=== PATIENT | male | born 1940 | race Caucasian/White ===

== ENCOUNTER → 2016-09-21 | Outpatient (CLI) | payer OTHER, BC ==
[~2016-09-21] MED LIST: ASPI1TAB83 PO; B-COCAP2 PO; CHOL1000 PO; CHROMIUM PICOLINATE PO; CMD5 PO; CMD75 PO; FINA5TAB PO; GLCSC500400; LECITHIN; MULT-506 PO; SIMV20TA2 PO; TAMS0.4C59 PO; VERA120T2 PO
[2016-09-21 09:36] LABS: HEMATOCRIT 46.2 % (42-52); MEAN CELL VOLUME 99.4 fL (80-100); MEAN CORPUSCULAR HGB CONC 34.2 g/dl (32-36); MEAN PLATELET VOLUME 10.3 fL (7.4-10.4); PLATELET COUNT 196 K/uL (130-400); RED BLOOD COUNT 4.65 M/uL (4.7-6.1); WHITE BLOOD COUNT 5.82 K/uL (4.8-10.8)
[2016-09-21 10:03] LABS: ESTIMATED AVERAGE GLUCOSE 117 mg/dl; HA1C FLAG Normal (Normal)
[2016-09-21 10:08] LABS: ALT/SGPT 21 U/L (12-78); BLOOD UREA NITROGEN 23 mg/dl (7-18); BUN/CREATININE RATIO 19.2 (10-20); CALCIUM 9.2 mg/dl (8.5-10.1); CARBON DIOXIDE 30 mmol/L (21-32); CHLORIDE 105 mmol/L (98-107); CHOLESTEROL 241 mg/dl (0-200); GLUCOSE 105 mg/dl (70-99); POTASSIUM 4.3 mmol/L (3.5-5.1); SODIUM 143 mmol/L (136-145); TRIGLYCERIDES 147 mg/dl (0-150); VERY LOW DENSITY LIPOPROT CALC 29 mg/dl
[2016-09-21 10:19] LABS: ALKALINE PHOSPHATASE 46 U/L (45-117); AST/SGOT 19 U/L (15-37); CHOLESTEROL/HDL RATIO 5.1; HDL CHOLESTEROL 47 mg/dl; LDL CHOLESTEROL CALCULATED 165 mg/dl
== END | disposition home or self-care (01) ==
LOC: C.LAB 08:31
PROVIDERS: ATTEND Family Medicine
DX: F33.0 Major depressive disorder, recurrent, mild (principal); R73.01 Impaired fasting glucose; E78.2 Mixed hyperlipidemia; I48.2 Chronic atrial fibrillation

== ENCOUNTER → 2017-02-28 | Outpatient (CLI) | payer OTHER, BC ==
[2017-02-28 10:52] LABS: ALKALINE PHOSPHATASE 53 U/L (45-117); ALT/SGPT 21 U/L (12-78); AST/SGOT 17 U/L (15-37); BLOOD UREA NITROGEN 17 mg/dl (7-18); BUN/CREATININE RATIO 13.8 (10-20); CARBON DIOXIDE 28 mmol/L (21-32); CHLORIDE 104 mmol/L (98-107); CHOLESTEROL 213 mg/dl (0-200); GLUCOSE 102 mg/dl (70-99); POTASSIUM 4.5 mmol/L (3.5-5.1); SODIUM 140 mmol/L (136-145); TRIGLYCERIDES 233 mg/dl (0-150); VERY LOW DENSITY LIPOPROT CALC 47 mg/dl
[2017-02-28 10:54] LABS: ALB/GLOB RATIO 0.9 (0.9-2); CHOLESTEROL/HDL RATIO 5.6; HDL CHOLESTEROL 38 mg/dl; LDL CHOLESTEROL CALCULATED 128 mg/dl
[2017-02-28 10:58] LABS: ESTIMATED AVERAGE GLUCOSE 123 mg/dl; HA1C FLAG Normal (Normal)
== END | disposition home or self-care (01) ==
LOC: C.LAB 09:14
PROVIDERS: ATTEND Family Medicine
DX: E11.9 Type 2 diabetes mellitus without complications (principal); E78.2 Mixed hyperlipidemia

== ENCOUNTER → 2017-05-27 | Outpatient (CLI) | payer OTHER, BC ==
[2017-05-27 09:56] LABS: ALT/SGPT 18 U/L (12-78); BLOOD UREA NITROGEN 19 mg/dl (7-18); BUN/CREATININE RATIO 14.8 (10-20); CALCIUM 9.3 mg/dl (8.5-10.1); CARBON DIOXIDE 29 mmol/L (21-32); CHLORIDE 105 mmol/L (98-107); CHOLESTEROL 244 mg/dl (0-200); GLUCOSE 99 mg/dl (70-99); POTASSIUM 4.5 mmol/L (3.5-5.1); SODIUM 139 mmol/L (136-145); TRIGLYCERIDES 183 mg/dl (0-150); VERY LOW DENSITY LIPOPROT CALC 37 mg/dl
[2017-05-27 09:58] LABS: ESTIMATED AVERAGE GLUCOSE 123 mg/dl; HA1C FLAG Normal (Normal)
[2017-05-27 10:00] LABS: ALB/GLOB RATIO 0.9 (0.9-2); ALKALINE PHOSPHATASE 51 U/L (45-117); AST/SGOT 19 U/L (15-37); CHOLESTEROL/HDL RATIO 5.7; HDL CHOLESTEROL 43 mg/dl; LDL CHOLESTEROL CALCULATED 164 mg/dl
== END | disposition home or self-care (01) ==
LOC: C.LAB 08:04
PROVIDERS: ATTEND Family Medicine
DX: E11.9 Type 2 diabetes mellitus without complications (principal); E78.2 Mixed hyperlipidemia

== ENCOUNTER → 2017-09-08 | Outpatient (CLI) | payer OTHER, BC ==
[2017-09-08 10:06] LABS: BLOOD UREA NITROGEN 19 mg/dl (7-18); BUN/CREATININE RATIO 15.3 (10-20); CALCIUM 9.2 mg/dl (8.5-10.1); CARBON DIOXIDE 29 mmol/L (21-32); CHLORIDE 103 mmol/L (98-107); CREATININE 1.22 mg/dl (0.60-1.40); GLUCOSE 111 mg/dl (70-99); POTASSIUM 4.5 mmol/L (3.5-5.1); SODIUM 135 mmol/L (136-145)
[2017-09-08 10:07] LABS: ALT/SGPT 24 U/L (12-78); AST/SGOT 20 U/L (15-37)
[2017-09-08 10:09] LABS: ALB/GLOB RATIO 0.8 (0.9-2); ALKALINE PHOSPHATASE 54 U/L (45-117); CHOLESTEROL 212 mg/dl (0-200); CHOLESTEROL/HDL RATIO 3.9; HDL CHOLESTEROL 54 mg/dl; LDL CHOLESTEROL CALCULATED 135 mg/dl; TRIGLYCERIDES 113 mg/dl (0-150); VERY LOW DENSITY LIPOPROT CALC 23 mg/dl
[2017-09-08 10:12] LABS: ESTIMATED AVERAGE GLUCOSE 114 mg/dl; HA1C FLAG Normal (Normal)
== END | disposition home or self-care (01) ==
LOC: C.LAB 09:05
PROVIDERS: ATTEND Family Medicine
DX: E78.2 Mixed hyperlipidemia (principal); R73.01 Impaired fasting glucose

== ENCOUNTER → 2017-12-11 | Outpatient (CLI) | payer OTHER, BC ==
[2017-12-11 11:05] LABS: ALBUMIN 3.5 gm/dl (3.4-5.0); ALT/SGPT 25 U/L (12-78); AST/SGOT 18 U/L (15-37); BLOOD UREA NITROGEN 24 mg/dl (7-18); CALCIUM 8.9 mg/dl (8.5-10.1); CARBON DIOXIDE 30 mmol/L (21-32); CREATININE 1.16 mg/dl (0.60-1.40); GLUCOSE 89 mg/dl (70-99); POTASSIUM 4.7 mmol/L (3.5-5.1); SODIUM 139 mmol/L (136-145)
[2017-12-11 11:09] LABS: ALKALINE PHOSPHATASE 46 U/L (45-117); CHOLESTEROL 183 mg/dl (0-200); LDL CHOLESTEROL CALCULATED 90 mg/dl; TOTAL PROTEIN 7.1 gm/dl (6.4-8.2)
[2017-12-12 07:37] LABS: HEMOGLOBIN A1C 6.1 % (4.5-5.6)
== END | disposition home or self-care (01) ==
LOC: C.LAB 09:37
PROVIDERS: ATTEND Family Medicine
DX: R73.01 Impaired fasting glucose (principal); E78.2 Mixed hyperlipidemia

== ENCOUNTER → 2018-04-13 | Outpatient (CLI) | payer OTHER, BC ==
--- NOTE | 2018-04-13 13:51 | DIAGNOSTIC IMAGING REPORT ---
CHEST 2 VIEWS ROUTINE CLINICAL HISTORY: SOB dyspnea COMPARISON STUDY: 06/30/2015 FINDINGS: 06/30/2015 IMPRESSION: Negative chest. The above report was generated using voice recognition software. It may contain grammatical, syntax or spelling errors. Electronically signed by: Johnie Moya M.D. 04/13/2018 1:49 PM Dictated Date/Time: 04/13/2018 1:44 PM
== END | disposition home or self-care (01) ==
LOC: C.RADBC 13:34
PROVIDERS: ATTEND Family Medicine
DX: R06.02 Shortness of breath (principal)

== ENCOUNTER 2018-11-14 05:39 | Inpatient (IN) ==
--- NOTE | 2018-11-08 11:38 | Anesthesiology Consultation ---
Date of Service November 08, 2018 Assessment & Plan (1) Encounter for pre-operative examination: Plan: - Check coags AM DOS (warfarin instructions per surgeon/prescriber; patient to continue ASA perioperatively per surgeon). - Vascular/cardio (Dr. Osorio)= 10/03/18= mildly abnormal CHARLA- "no indication for endovascular intervention." Elevated CHARLA's suspected as false elevated due to vessel calcification (monitoring). - Cardio (Dr. Bullard)= 01/03/18= "doing well" on his current regimen. Volume status "appropriate." Continued on same regimen. F/U one year recommended. Chart Review Chart Review: Acceptable Risk for Surgery and Patient seen in Pre Admission Testing Teaching & Discussion Pre-Anesthesia Teaching/Discussion Notes: Instructed NPO after midnight before surgery,except medications with 15 cc of water. Medication instructions provided according to the PAT guidelines. History Surgery Operation Date: 11/14/18 08:00 Proposed Procedures p Percutaneous Endovascular Aneurysm Repair - Horacio Bernal MD Height/Weight Height: 5 ft 8 in Weight: 97.5 kg Allergies Allergy/AdvReac Type Severity Reaction Status Date / Time No Known Allergies Allergy Unverified 11/08/18 08:33 Medications Home Medications Medication Instructions Recorded Confirmed Last Taken aspirin 81 mg PO QPM 06/23/18 11/08/18 07/03/18 23:00 cholecalciferol (vitamin D3) 1,000 unit PO QAM 06/23/18 11/08/18 07/03/18 23:00 [Vitamin D3] chromium picolinate 400 mcg PO QPM 06/23/18 11/08/18 07/03/18 08:00 escitalopram oxalate 5 mg PO HS 06/23/18 11/08/18 07/03/18 23:00 finasteride 5 mg PO QPM 06/23/18 11/08/18 07/03/18 18:00 glucosamine-chondroitin 1 cap PO QPM 06/23/18 11/08/18 07/03/18 18:00 latanoprost 1 drp OPHTHALMIC (EYE) PM 06/23/18 11/08/18 07/03/18 18:00 lecithin 1,200 mg PO BID 06/23/18 11/08/18 07/03/18 18:00 multivitamin 1 tab PO QAM 06/23/18 11/08/18 07/03/18 08:00 rosuvastatin 5 mg PO QAM 06/23/18 11/08/18 07/03/18 08:00 verapamil 120 mg PO QAM 06/23/18 11/08/18 07/18/18 07:00 vitamin B complex [B Complex 1] 1 tab PO QAM 06/23/18 11/08/18 07/03/18 08:00 warfarin 5 mg PO QPM 06/23/18 11/08/18 07/03/18 23:00 tamsulosin 0.4 mg PO QPM 11/06/18 11/08/18 Unknown Past Medical History Medical History AAA (abdominal aortic aneurysm) REASON FOR PROCEDURE- INFRARENAL AAA 5.5CM PER 10/2018 CTA Atrial fibrillation PERMANENT BPH (benign prostatic hyperplasia) Cardiomyopathy Depression GERD (gastroesophageal reflux disease) CONTROLLED Glaucoma Hearing deficit Hyperlipidemia Hypertension Osteoarthritis Tremor HANDS; SUSPECTED BENIGN/ESSENTIAL Umbilical hernia Past Surgical History Surgical History History of cataract surgery B/L History of herniorrhaphy LEFT INGUINAL History of nasal surgery History of shoulder surgery RIGHT Past Anesthesia History No Hx of Anesthesia Complications and No Family Hx of Anesthesia Complications History of PONV No Motion Sickness Screening History of Motion Sickness: No Social History Smoking Status: Former smoker Do You Dip or Chew Tobacco: No Smoking End Date: QUIT 1999; HX 1.5PPD x 40 YEARS Hx Alcohol Use: No Hx Substance Use: No substance use type: does not use Exercise / Class Metabolic Activity III < 4 Walking/Shop/Light housework Review of Systems Reflux controlled. Patient denies chest pain, shortness of breath, cough, wheezing, palpitations. Physical Exam Vital Signs VITALS BP 124/84 P 69 TEMP 97.9 SP02 96%RA RESP 20 PHYSICAL Full neck and c-spine range of motion. Full TMJ range of motion. TMD 3.5 finger breaths Mallampati Score 2 Dentition: intact, upper front permanent implants Lungs: clear throughout to auscultation Cardiac: irregularly irregular, no murmurs noted Spine: normal Carotid arteries: negative bruit Extremities: no edema Short neck Trimmed garcía Testing Electrocardiogram Date: 11/08/18 A. fib at 94bpm. Chest X-Ray Date: 11/08/18 Atherosclerosis of the aortic arch. Minimal left basilar opacities likely atelectasis or scarring. Cardiomegaly. No other convincing evidence of acute cardiopulmonary disease. Echocardiogram Date: 07/01/15 LVEF likely 50% range (poor imaging windows- difficult to determine). Poorly visualized valves although no significant stenosis or regurgitation. Stress Test Date: 05/14/11 Type: exercise Negative stress ECHO/EKG for ischemia at >100% MPHR. EF 65-70%. Mild to moderate RVH. Moderate LAD. Mild MR. Mild TR. RVSP 30-40mmhg. Accelerated HR response to exercise stress test. 4.6 METS. 114% MPHR. Other Testing Abdomen/Pelvis CTA= 10/26/18= Infrarenal abdominal aortic aneurysm extending to the bifurcation and involving the origin of the left common iliac artery. The aneurysm measures 5.5 cm in maximal diameter. Apparent interval increase in mural thrombus with resulting decrease in patent luminal diameter since the prior exam on 10/20/2018. No other evidence to suggest acute change such as impending rupture. Laboratory Results 11/08/18 11:54 11/08/18 11:54 Blood Type A Positive 11/08/18 11:54 Antibody Screen NEGATIVE 11/08/18 11:54 PT 26.9 Seconds (9.0-12.0) H 11/08/18 11:54 INR 2.8 (0.9-1.1) H 11/08/18 11:54 APTT 32.7 Seconds (21.0-31.0) H 11/08/18 11:54
--- NOTE | 2018-11-08 11:42 | PAT Medication Instructions ---
Medication Instructions Date of Service November 08, 2018 Home Medications aspirin 81 mg PO QPM cholecalciferol (vitamin D3) 1,000 unit PO QAM chromium picolinate 400 mcg PO QPM escitalopram oxalate 5 mg PO HS finasteride 5 mg PO QPM glucosamine-chondroitin 1 cap PO QPM latanoprost 1 drp OPHTHALMIC (EYE) PM lecithin 1,200 mg PO BID multivitamin 1 tab PO QAM rosuvastatin 5 mg PO QAM verapamil 120 mg PO QAM vitamin B complex [B Complex 1] 1 tab PO QAM warfarin 5 mg PO QPM tamsulosin 0.4 mg PO QPM ASK your prescriber and surgeon aspirin 81 mg PO QPM warfarin 5 mg PO QPM STOP taking 2 weeks before surgery (or as soon as possible if surgery is within 2 weeks) chromium picolinate 400 mcg PO QPM latanoprost 1 drp OPHTHALMIC (EYE) PM lecithin 1,200 mg PO BID DO NOT take the morning of surgery cholecalciferol (vitamin D3) 1,000 unit PO QAM multivitamin 1 tab PO QAM verapamil 120 mg PO QAM vitamin B complex [B Complex 1] 1 tab PO QAM Take morning of surgery With a small sip of water, OTHERWISE NOTHING TO EAT OR DRINK AFTER MIDNIGHT: rosuvastatin 5 mg PO QAM Take evening before surgery escitalopram oxalate 5 mg PO HS finasteride 5 mg PO QPM latanoprost 1 drp OPHTHALMIC (EYE) PM tamsulosin 0.4 mg PO QPM Other Notes If you have any questions please call us at [phone] or [phone] or [phone] or [phone]
--- NOTE | 2018-11-08 12:21 | XRay Report ---
XR chest Pre-admission PA/Lat CLINICAL HISTORY: 78 years-old Male presenting with preoperative assessment, asymptomatic. TECHNIQUE: PA and lateral views of the chest were obtained. COMPARISON: 04/13/2018. FINDINGS: Atherosclerosis of the aortic arch. Cardiac silhouette enlarged. Bandlike opacity in the left mid hanny g new from prior. No other focal opacity. No pleural effusion or pneumothorax. Degenerative changes of the thoracic spine. Upper abdomen normal. IMPRESSION: 1. Minimal left basilar opacities likely atelectasis or scarring. 2. Cardiomegaly. No other convincing evidence of acute cardiopulmonary disease. Electronically signed by: Abel Valentni M.D. 11/08/2018 12:20 PM
[2018-11-08 12:35] LABS: Basophils # (auto) 0.01 K/uL (0-0.2); Basophils % (auto) 0.1 %; Hematocrit (blood only) 41.6 % (42-52); Hemoglobin 13.6 g/dL (14.0-18.0); Immature Granulocytes # (auto) 0.11 K/uL (0.00-0.02); Immature Granulocytes % (auto) 1.3 %; Lymphocytes # (auto) 0.93 K/uL (1.2-3.4); Lymphocytes % (auto) 10.8 %; Mean Corpuscular Hgb Conc 32.7 g/dL (32-36); Mean Corpuscular Volume 104.8 fL (80-100); Mean Platelet Volume 10.1 fL (7.4-10.4); Monocytes # (auto) 0.62 K/uL (0.11-0.59); Monocytes % (auto) 7.2 %; Neutrophils # (auto) 6.94 K/uL (1.4-6.5); Neutrophils % (auto) 80.6 %; Platelet Count 180 K/uL (130-400); RDW Coefficient of Variation 16.4 % (11.5-14.5); RDW Standard Deviation 62.8 fL (36.4-46.3); Red Blood Count 3.97 M/uL (4.7-6.1); White Blood Count 8.61 K/uL (4.8-10.8)
[2018-11-08 12:37] LABS: BUN Creatinine Ratio 21.8 (10-20); Calcium 8.5 mg/dl (8.5-10.1); Creatinine Clr Calc Pharmacy 63.4 ml/min; Est GFR (African American) 76.1; Est GFR (Non-African American) 65.7; Potassium 4.3 mmol/L (3.5-5.1)
[2018-11-08 12:42] LABS: INR 2.8 (0.9-1.1); Partial Thromboplastin Ratio 1.2; Partial Thromboplastin Time 32.7 Seconds (21.0-31.0); Prothrombin Time 26.9 Seconds (9.0-12.0)
[2018-11-14] MEDS ORDERED: HYDROCORTISONE SOD 100 MG in SYRINGE 0 ML IV SCH (06:00)
[2018-11-14] MEDS ORDERED: CEFAZOLIN 2000MG 2,000 MG/15 ML SYR IV SCH (06:00)
[2018-11-14] MEDS ORDERED: LACTATED RINGER'S 1,000 ML IV SCH (06:00)
[2018-11-14 06:25] LABS: INR 1.2 (0.9-1.1); Partial Thromboplastin Ratio 1.3; Prothrombin Time 12.3 Seconds (9.0-12.0)
--- NOTE | 2018-11-14 06:32 | History & Physical Report ---
Date of Service November 14, 2018 Assessment & Plan (1) AAA (abdominal aortic aneurysm) without rupture: Patient admitted for a PEVAR of his AAA. I have discussed the risks options and benefits of the procedure with the patient. The patient understands the risks options and benefits and agrees to the procedure. History of Present Illness Chief Complaint: AAA Primary Care Provider: Jonathan Phillips October 24, 2018 Name: WILFREDO ODONNELL [facility] [place]: [id number] : 1940 Date of Service: 10/24/2018 Jonathan Phillips DO [address] [place] [address] Phillips: We had the pleasure of seeing Mr. Odonnell in outpatient vascular surgery clinic. As you are aware, he is a 78-year-old gentleman with a history of atrial fibrillation and diagnosed in 2011 with an abdominal aortic aneurysm approximately 3 cm in diameter, followed over the years and finally reached a diameter of 5.5 cm and is here for evaluation and possible repair. The patient reports that he is not having any abdominal problems or discomfort or pain and no back discomfort or pain. He reports that he does not have any claudication symptoms. No open wounds or ulcers. His only complaint is a rash that he has been seen and worked up. He also reports that he has been on Coumadin for his atrial fibrillation without any issues. The patient denies any shortness of breath or chest pain. The patient reports that he is able to walk a quarter mile without any issues. He is able to go up a flight of stairs without any problems. PHYSICAL EXAMINATION: The patient is awake, alert, oriented, follows command, does not appear to be in any distress. Blood pressure is 126/80, heart rate of 92, satting 97% on room air. Chest is clear to auscultation bilaterally. No murmurs are appreciated on auscultation. The patient has palpable radial pulses bilaterally, palpable femoral pulses bilaterally, palpable DP pulses bilaterally. No open wounds on his lower extremities, he does have a lot scratches and darkened skin over his lower extremities. He reports that is from a rash is being worked up. No rashes over his groins. The patient has palpable femoral pulses bilaterally. The patient's abdomen is obese but soft, nontender. Has an abdominal hernia that is palpable around the umbilicus. IMAGING: The patient underwent a CAT scan, which shows a 5.5 cm aneurysm with a good neck. In summary, Mr. Odonnell is a 78-year-old gentleman with abdominal aortic aneurysm at 5.5 cm. We will plan for an endovascular repair of his aneurysm after discussing both open and endovascular repair. He and his agreed and elected to undergo an endovascular repair. All the risks and benefits of the procedure and description of the procedure were completed during his clinical evaluation. All questions were answered. He is of note on Coumadin for his atrial fibrillation and we will arrange for him to be off the Coumadin prior to undergoing his operation. We also discussed with his under cutting machine operator any further need for any workup. At this time, we do not suspect that he needs any further cardiac evaluation but will consult with his under cutting machine operator. #[id number]\ I saw and evaluated the patient. Discussed with the resident and agree with the resident's findings and plan as documented in the resident's note. Signature Line Electronic Signature on File CC: Jonathan Phillips, DO [address] [place] [address] [place] [id number] * Darius Mares MD Author Signature Dt/Tm: 10/24/2018 04:33 PM Resident Division of Vascular Surgery Electronically Reviewed/Signed by: Tony Fitzgerald Signature Dt/Tm : 10/24/2018 03:05 PM Mountain Or Glacier Guide Hernando Soto [facility] [place] [address] VINCE /HONEY Result Type: .Outpt Ltr Date of Service: October 24, 2018 00:00 EST Authorization Status: Final Subject: Outpatient Letter Author or Import Date: MD Mares Tarik Z on October 24, 2018 14:21 EST Verified By: MD Bernal Eugene J on October 24, 2018 15:05 EST Encounter info: [id number], [facility] [place] [facility], Clinic, 10/24/2018 - 10/24/2018 Contributor system: [email or web address] Allergies Allergy/AdvReac Type Severity Reaction Status Date / Time No Known Allergies Allergy Verified 11/14/18 06:06 Home Medications Home Medications Medication Instructions Recorded Confirmed Type aspirin 81 mg PO QPM 06/23/18 11/14/18 History cholecalciferol (vitamin D3) 1,000 unit PO QAM 06/23/18 11/14/18 History [Vitamin D3] chromium picolinate 400 mcg PO QPM 06/23/18 11/14/18 History escitalopram oxalate 5 mg PO HS 06/23/18 11/14/18 History finasteride 5 mg PO QPM 06/23/18 11/14/18 History glucosamine-chondroitin 1 cap PO QPM 06/23/18 11/14/18 History latanoprost 1 drp OPHTHALMIC (EYE) PM 06/23/18 11/14/18 History lecithin 1,200 mg PO BID 06/23/18 11/14/18 History multivitamin 1 tab PO QAM 06/23/18 11/14/18 History rosuvastatin 5 mg PO QAM 06/23/18 11/14/18 History verapamil 120 mg PO QAM 06/23/18 11/14/18 History vitamin B complex [B Complex 1] 1 tab PO QAM 06/23/18 11/14/18 History warfarin 5 mg PO QPM 06/23/18 11/14/18 History tamsulosin 0.4 mg PO QPM 11/06/18 11/14/18 History enoxaparin [Lovenox] mg SUBCUT DAILY 11/14/18 History Past Med/Surg History Medical History AAA (abdominal aortic aneurysm) REASON FOR PROCEDURE- INFRARENAL AAA 5.5CM PER 10/2018 CTA Atrial fibrillation PERMANENT BPH (benign prostatic hyperplasia) Cardiomyopathy Depression GERD (gastroesophageal reflux disease) CONTROLLED Glaucoma Hearing deficit Hyperlipidemia Hypertension Osteoarthritis Tremor HANDS; SUSPECTED BENIGN/ESSENTIAL Umbilical hernia Surgical History History of cataract surgery B/L History of herniorrhaphy LEFT INGUINAL History of nasal surgery History of shoulder surgery RIGHT Social History Current Living Situation: Spouse Other Information That Helps Us Care for You: No Feels Safe at Home: Yes Safety Concerns: Feels Safe At This Time Smoking Status: Former smoker Do You Dip or Chew Tobacco: No Smoking End Date: QUIT 1999; HX 1.5PPD x 40 YEARS Hx Alcohol Use: No Hx Substance Use: No Beliefs That Will Affect Care: None Preferred Language: Latvian Communication Ability: Effective Credentials Specialist Required: No Review of Systems All systems reviewed & are unremarkable except as noted in HPI & below
[2018-11-14] MEDS ORDERED: GELATIN SPONGE SZ 100 ONE (07:18)
[2018-11-14] MEDS ORDERED: CEFAZOLIN 250 MG/ML 1 GM VIAL ONE (07:18)
[2018-11-14] MEDS ORDERED: THROMBIN 5000 UNITS KIT ONE (07:18)
[2018-11-14] MEDS ORDERED: HEPARIN (PORCINE) 1000 UNIT/ML 10 ML (CATH LAB USE ONLY) ONE (07:18)
[2018-11-14] MEDS ORDERED: MIDAZOLAM HCL 1 MG/ML 2ML VIAL ONE (07:20)
[2018-11-14] MEDS ORDERED: NEOSTIGMINE METHYLSULFATE 5 MG/5 ML SYR ONE (07:20)
[2018-11-14] MEDS ORDERED: GLYCOPYRROLATE 0.2 MG/ML VIAL ONE (07:20)
[2018-11-14] MEDS ORDERED: ONDANSETRON INJ 2 MG/ML 2 ML VIAL ONE (07:20)
[2018-11-14] MEDS ORDERED: PROPOFOL IV EMULSION 10 MG/ML 20 ML VIAL IV ONE (07:20)
[2018-11-14] MEDS ORDERED: LIDOCAINE HCL 2% 2 ML VIAL/AMP(20MG/ML) INFIL ONE (07:20)
[2018-11-14] MEDS ORDERED: fentaNYL citrate 100 MCG/2 ML VIAL ONE ×2 (07:20)
[2018-11-14] MEDS ORDERED: ROCURONIUM BROMIDE 10 MG/ML 5 ML VIAL ONE ×2 (07:20→10:08)
[2018-11-14] MEDS ORDERED: DEXAMETHASONE SOD INJ 4 MG/ML VIAL ONE (07:20)
[2018-11-14] MEDS ORDERED: BUPIVACAINE/EPINEPHRINE 0.5% MPF 1:200,000 30 ML VIAL ONE (07:32)
[2018-11-14] MEDS ORDERED: ATROPINE SULFATE 0.1 MG/ML 10ML SYR IV PRN (07:34)
[2018-11-14] MEDS ORDERED: DEXAMETHASONE SOD INJ 4 MG/ML VIAL IV PRN (07:34)
[2018-11-14] MEDS ORDERED: HYDROmorphone INJ 1 MG/ML SYRINGE IV PRN (07:34)
[2018-11-14] MEDS ORDERED: fentaNYL citrate 100 MCG/2 ML VIAL IV PRN (07:34)
[2018-11-14] MEDS ORDERED: ONDANSETRON INJ 2 MG/ML 2 ML VIAL IV PRN (07:34)
[2018-11-14] MEDS ORDERED: ePHEDrine sulfate 50 MG/ML AMP IV PRN (07:34)
[2018-11-14] MEDS ORDERED: LIDOCAINE 2% JELLY 5 ML TUBE ONE (07:35)
--- NOTE | 2018-11-14 08:07 | History & Physical Bridge Note ---
Date of Service November 14, 2018 History & Physical Bridge Note I have examined the patient, reviewed the History & Physical and in the interval since the performance of the History & Physical I have noted the following changes of clinical significance: no changes noted
--- NOTE | 2018-11-14 09:57 | Post Operative Brief Note ---
Immediate Post Op Note v1 Date of Surgery November 14, 2018 Pre & Post Diagnosis Operation Date: 11/14/18 08:00 Pre-Op Diagnosis: Abdominal Aortic Aneurysm Post-Op Diagnosis: Abdominal Aortic Aneurysm Procedure Operation Date: 11/14/18 08:00 Actual Procedures p Percutaneous Endovascular Aortic Aneurysm Repair, Mechanical Closure of Bilateral Femoral Arteries.(Bilateral) - Horacio Bernal MD Surgeon Horacio Bernal MD Nerve Specialist Rachel Mares MD Estimated Blood Loss 100 Findings Consistent with Post-Op Diagnosis Drains Yanez Catheter (Inserted by Romel Streeter RN) Anesthesia Type General Complications none Disposition Accompanied Patient To Recovery: No Disposition: Recovery Room
[2018-11-14] MEDS ORDERED: OXYCODONE/ACETAMINOPHEN 5mg/325mg TAB PO PRN (09:58)
[2018-11-14] MEDS ORDERED: VISIPAQUE IV PRN (10:01)
[2018-11-14] MEDS ORDERED: ARISTA ABSORBABLE HEMOSTAT 3GM TOP ONE (10:01)
[2018-11-14] MEDS ORDERED: NITROGLYCERIN 5 MG/ML 10 ML VIAL ONE (10:08)
[2018-11-14] MEDS ORDERED: HEPARIN SOD (PORCINE) 1000 UNIT/ML 10 ML VIAL ONE (10:08)
[2018-11-14] MEDS ORDERED: ESMOLOL HCL INJ 10 MG/ML 10ML VIAL IV ONE (10:08)
[2018-11-14] MEDS ORDERED: PHENYLEPHRINE HCL 10 MG/ML VIAL ONE (10:08)
[2018-11-14] MEDS ORDERED: METOPROLOL TARTRATE 1 MG/ML VIAL IV ONE (10:08)
--- NOTE | 2018-11-14 10:26 | Operative Report ---
Post Operative Report Pre & Post Diagnosis Operation Date: 11/14/18 08:00 Pre-Op Diagnosis: Abdominal Aortic Aneurysm Post-Op Diagnosis: Abdominal Aortic Aneurysm Procedure Operation Date: 11/14/18 08:00 Actual Procedures p Percutaneous Endovascular Aortic Aneurysm Repair, Bilateral Iliac Extension, Mechanical Closure of Bilateral Femoral Arteries.(Bilateral) - Horacio Bernal MD Surgeon Dr. Gabe Mares MD Child Care Attendant Rachel Mares MD Estimated Blood Loss 100 Findings Consistent with Post-Op Diagnosis Radiation 538 mGy Fluoroscopy time 9.8 minutes Contrast 175 cc Specimens None Anesthesia Type General Complications none Disposition Accompanied Patient To Recovery: No Disposition: Recovery Room Indications Abdominal aortic aneurysm Description of Procedure The patient was brought to the operating room and placed on the operating table in the supine position. The patient was placed under general sedation and an A- line was placed both by anesthesia. A Yaenz catheter was placed. The patient was then placed in the supine position with both arms tucked to the sides. Abdomen and Groins were prepped and sterilely draped. The left common femoral artery was accessed using an access needle, then a wire was advanced. An 11 blade was used to make a small incision at the skin, at the base of the wire. A 5-Kazakh sheath was then advanced and an angiogram was completed to confirm position. Then a ProGlide perclosure device was advanced over the wire. Once the sheath was pulled back, a ProGlide percutaneous closure device was advanced over the wire and accessed the artery. The ProGlide device was advanced to the point where the lay was at the skin. The wire was then removed and the closure device was advanced further until blood was seen exiting the side port. At that point the #1 lever on the ProGlide perclosure device was deployed. The Perclose device was pulled back and the #2, then #3 levers were deployed. Then the #4 lever was deployed, the wire was cut and secured to the skin by a Steri-Strip. This was deployed in the 2 o'clock position. A second device was deployed in the same manner in the 10 o'clock position, then an 8-Kazakh sheath was advanced. In the same manner, 2 perclosure devices were used on the right side. An 035 Glidewire wire was advanced into the aorta on the left side, followed by a comfy catheter. Then the wire was exchanged for a Tamy wire. On the right side, an 035 angled Glidewire was advanced through the aorta. A pigtail catheter was then placed over the wire on the right side and advanced into the abdominal aorta above the renal arteries. 8000 units of IV heparin was administered. An angiogram was then performed. This showed patent bilateral renal arteries. A Glidewire was then exchanged for a Tamy wire which was then advanced over the right side through the pigtail and the pigtail catheter was then removed. A 12-Kazakh sheath was then advanced into the right groin. On the left side, a Yanez wire was advanced and then using a 12 then followed by a 16 Kazakh dilators were used to serially dilate this was all followed by the 18 Kazakh sheath. The [place] Excluder device was loaded on the left side and the main body was brought up through the left side. We used a 26 mm x 14.5 x 14 cm device. The device was then advanced and positioned right below the renals and an angiogram was obtained after magnification to confirm position. Both sheaths were pulled back to avoid any constriction of the device deployment. The device was then deployed until the contralateral gate was opened. Attention was then turned to the right groin where the wire was pulled back as well as the catheter. The pigtail on the right side was pulled back below the level of the contralateral gate. An angled glide catheter was then advanced and the pigtail was exchanged for a Comfy catheter. The contralateral gate was then cannulated the dilator for the 12 Kazakh sheath was then advanced into position to allow the sheath to be advanced into the contralateral limb. The contralateral limb was then positioned in place and then deployed on the right side, we used a 14.5 mm x 12 cm device. Following that, the rest of the main body was deployed. The Q50 balloon was then loaded on the right side and the balloon was then inflated at the main neck of the device, then at the overlap area as well as the distal iliac limb. The balloon was then placed on the Left side and dilation of the stent overlap as well as the iliac limb was completed. The pigtail was then used to go up the right side, positioned above the renals and an angiogram was then obtained. The angiogram showed a sealed neck with no type I a or B endoleak's and a possible small type II endoleak. This angiogram also showed a stenotic left hypogastric at the origin with collaterals between the right and left hypogastrics. At that time there was concern that the left limb may be short and a decision was made to extend the left limb of the graft. An angiogram was obtained through the left sheath and a 16 mm x 14.5 mm x 7 cm iliac extension limb was used to extend into the left common iliac artery. The Q50 balloon was then advanced and the extension piece was ballooned at the proximal and distal ends. Following that, another angiogram was completed, showing good apposition. At the end of the case, the renals were patent and both iliac limbs were patent as well. There was no sign of any narrowing in the iliac limbs. At this point, the procedure was concluded. The wires and catheters were removed. The sheaths were removed from the groins. Prior to removal of the sheaths, the perclosure devices were prepped and attention was first turned to the right groin, where the pressure was applied at the right groin. The sheath was pulled back and removed. The wire was kept in place. Using the perclosure pusher, both of the perclosure sutures were tightened. Then the wire was removed and the perclosure sutures were tightened once again and cut. Marissa was then applied to the right groin percutaneous access site. Attention was turned to the left groin and the perclosure sutures were tightened in the same manner as the right groin. Marissa was applied in the track that was created by the percutaneous access on both sides. No sign of any bleeding or hematoma was appreciated at the end of the case. The patient tolerated the procedure well and a sterile dressing was placed on each groin and the patient was taken back to recovery room in good stable condition. There were no complications. Dr. Bernal was present for the entirety of the case. I attest to the content of the Intraoperative Record and any orders documented therein. Any exceptions are noted below.
[2018-11-14 10:41] LABS: Hematocrit (blood only) 32.7 % (42-52); Hemoglobin 10.5 g/dL (14.0-18.0)
--- NOTE | 2018-11-14 10:57 | Anesthesiology Progress Note ---
Date of Service November 14, 2018 Anesthesia Post Procedure Vital Signs Vital Signs: Temp Pulse Pulse Resp BP Pulse Ox 11/14/18 10:45 86 19 109/54 L 94 11/14/18 10:35 80 12 107/68 98 11/14/18 10:25 89 12 118/65 98 11/14/18 10:19 36.4 C L 95 H 16 111/69 90 11/14/18 06:28 37.1 C 112 H 18 154/90 H 94 Notes Mental Status: alert / awake / arousable and participated in evaluation Patient Amnestic to Procedure: Yes Nausea / Vomiting: adequately controlled Pain: adequately controlled Airway Patency, RR, SpO2: stable & adequate BP & HR: stable & adequate Hydration State: stable & adequate Anesthetic Complications: no major complications apparent
[2018-11-14] MEDS: PANTOprazole 40 MG in SYRINGE 0 ML IV SCH (13:54)
[2018-11-14] MEDS: D5W AND 1/2NSS 1,000 ML IV SCH ×2 (13:55→19:40)
--- NOTE | 2018-11-14 14:04 | Critical Care Consultation ---
Date of Consultation November 14, 2018 Assessment & Plan (1) AAA (abdominal aortic aneurysm) without rupture: Reason Critically Ill: Postop day of surgery for PVAR for AAA without rupture Neuro - [facility] ICU: Negative Cardiac - AAA without rupture -Status post PVAR 11/14, EBL 100, bilateral groin sites with minimal hematomas with good perfusion to distal extremities -A line for strict blood pressure monitoring and control Chronic A. fib -Currently rate controlled, continue Coumadin, continue to monitor on telemetry Hypertension -continue verapamil -A line for continuous monitoring Respiratory - Lungs clear to auscultation, weaning nasal cannula, monitor GI - GERD -IV Protonix RENAL/LYTES - Monitor routine electrolytes and replete as necessary - Yanez inserted with adequate urine output, history of BPH, continuing home finasteride and Flomax, HEME - Hemoglobin 10 from 13 postop, likely dilution from OR fluids, EBL 100, monitor with a.m. CBC ID - Postoperative Ancef x2 dose LINES/IV ACCESS - Peripheral's x2, arterial line DVT PROPHYLAXIS - Lovenox subcu Supervising Physician Co-Signing Physician Notes I have personally evaluated and examined this patient. I agree with assessment and plan of Jacky CONNELL. No complaint during my evaluation History of Present Illness Attending Physician: Horacio Bernal MD History of Present Illness Mr. Urrutia is a 78-year-old male past medical history of chronic A. fib, hyperlipidemia, hypertension, depression, glaucoma, GERD, BPH, umbilical hernia , cardiomyopathy, AAA nonruptured who presents to the ICU postoperative for scheduled PVAR by Dr. Marcial. On exam patient is alert and oriented x3 and hemodynamically stable on nasal cannula. Bilateral puncture sites to the groin with mild hematoma, without bleeding, good collateral blood flow to lower extremities bilaterally. Will monitor in ICU for now. Allergies Allergy/AdvReac Type Severity Reaction Status Date / Time No Known Allergies Allergy Verified 11/14/18 06:06 Home Medications Home Medications Medication Instructions Recorded Confirmed Type aspirin 81 mg PO QPM 06/23/18 11/14/18 History cholecalciferol (vitamin D3) 1,000 unit PO QAM 06/23/18 11/14/18 History [Vitamin D3] chromium picolinate 400 mcg PO QPM 06/23/18 11/14/18 History escitalopram oxalate 5 mg PO HS 06/23/18 11/14/18 History finasteride 5 mg PO QPM 06/23/18 11/14/18 History glucosamine-chondroitin 1 cap PO QPM 06/23/18 11/14/18 History latanoprost 1 drp OPHTHALMIC (EYE) PM 06/23/18 11/14/18 History lecithin 1,200 mg PO BID 06/23/18 11/14/18 History multivitamin 1 tab PO QAM 06/23/18 11/14/18 History rosuvastatin 5 mg PO QAM 06/23/18 11/14/18 History verapamil 120 mg PO QAM 06/23/18 11/14/18 History vitamin B complex [B Complex 1] 1 tab PO QAM 06/23/18 11/14/18 History warfarin 5 mg PO QPM 06/23/18 11/14/18 History tamsulosin 0.4 mg PO QPM 11/06/18 11/14/18 History enoxaparin [Lovenox] mg SUBCUT DAILY 11/14/18 History Patient History Medical History Skin abnormality (Acute) AAA (abdominal aortic aneurysm) REASON FOR PROCEDURE- INFRARENAL AAA 5.5CM PER 10/2018 CTA Atrial fibrillation PERMANENT BPH (benign prostatic hyperplasia) Cardiomyopathy Depression GERD (gastroesophageal reflux disease) CONTROLLED Glaucoma Hearing deficit Hyperlipidemia Hypertension Osteoarthritis Tremor HANDS; SUSPECTED BENIGN/ESSENTIAL Umbilical hernia Surgical History History of cataract surgery B/L History of herniorrhaphy LEFT INGUINAL History of nasal surgery History of shoulder surgery RIGHT Social History Current Living Situation: Spouse Other Information That Helps Us Care for You: No Feels Safe at Home: Yes Safety Concerns: Feels Safe At This Time Smoking Status: Former smoker Do You Dip or Chew Tobacco: No Smoking End Date: QUIT 1999; HX 1.5PPD x 40 YEARS Hx Alcohol Use: No Hx Substance Use: No Beliefs That Will Affect Care: None Preferred Language: Russian Communication Ability: Effective Engagement Director Required: No Review of Systems Patient denies fever, chills, fatigue, or pain. Patient denies changes in vision Patient denies sore throat, changes in hearing, reports dry mouth. Patient denies shortness of breath, wheezing, congestion, or productive cough Additional Comments: Patient denies chest pain, dyspnea, syncope, edema, or palpitations Patient denies nausea and vomiting, abdominal pain, or diarrhea Patient denies hesitancy, changes in urine stream, issues voiding Patient denies weakness, swelling, or limited range of motion Patient denies rash, ulcers, or lesions Patient denies changes in mentation, confusion, or lack of coordination Physical Exam 2 Vital Signs (Past 24 Hours): Last Vital Signs Temp 36.8 C 11/14/18 11:30 Pulse 74 11/14/18 12:30 Resp 16 11/14/18 12:30 BP 109/67 11/14/18 12:30 Pulse Ox 97 11/14/18 12:30 Constitutional: WD/WN, vitals as above comfortable Eyes: PERRL, conjunctivae normal, anicteric sclerae Neck: trachea midline, no thyromegaly Respiratory: normal respiratory effort, lungs clear to auscultation normal respiratory effort Cardiovascular: RRR, no murmur, no edema Heart Sounds: normal S1 and normal S2 Vessels: normal peripheral pulses Gastrointestinal (Abdomen): normal bowel sounds, soft, nontender, no hepatosplenomegaly Skin: Skin intact. Bilateral groin cath sites with minimal hematoma. Neurologic: Alert and oriented x4 Psychiatric: Patient is calm and cooperative. Genitourinary: Yanez inserted with adequate urine output Results & Data Laboratory Results Laboratory Results - last 24 hr 11/14/18 11/14/18 11/14/18 06:07 06:07 10:33 Hgb 10.5 L Hct 32.7 L PT 12.3 H INR 1.2 H APTT 35.0 H PTT Ratio 1.3 POC Glucose Nasal Screen MRSA (PCR) Blood Type A Positive Antibody Screen NEGATIVE Crossmatch See Detail 11/14/18 11/14/18 12:00 12:25 Hgb Hct PT INR APTT PTT Ratio POC Glucose 169 H Nasal Screen MRSA (PCR) Negative Blood Type Antibody Screen Crossmatch Medications Administered Home Medications aspirin 81 mg PO QPM 06/23/18 [History Confirmed 11/14/18] cholecalciferol (vitamin D3) [Vitamin D3] 1,000 unit PO QAM 06/23/18 [History Confirmed 11/14/18] chromium picolinate 400 mcg PO QPM 06/23/18 [History Confirmed 11/14/18] escitalopram oxalate 5 mg PO HS 06/23/18 [History Confirmed 11/14/18] finasteride 5 mg PO QPM 06/23/18 [History Confirmed 11/14/18] glucosamine-chondroitin 1 cap PO QPM 06/23/18 [History Confirmed 11/14/18] latanoprost 1 drp OPHTHALMIC (EYE) PM 06/23/18 [History Confirmed 11/14/18] lecithin 1,200 mg PO BID 06/23/18 [History Confirmed 11/14/18] multivitamin 1 tab PO QAM 06/23/18 [History Confirmed 11/14/18] rosuvastatin 5 mg PO QAM 06/23/18 [History Confirmed 11/14/18] verapamil 120 mg PO QAM 06/23/18 [History Confirmed 11/14/18] vitamin B complex [B Complex 1] 1 tab PO QAM 06/23/18 [History Confirmed ] warfarin 5 mg PO QPM 06/23/18 [History Confirmed 11/14/18] tamsulosin 0.4 mg PO QPM 11/06/18 [History Confirmed 11/14/18] enoxaparin [Lovenox] mg SUBCUT DAILY 11/14/18 [History] Active Medications Aspirin (Ecotrin Ectab) 81 mg PO QPM [facility] Stop: 12/14/18 20:59 Enoxaparin Sodium (Lovenox) 30 mg SQ Q12H [facility] Stop: 12/14/18 20:59 Escitalopram Oxalate (Lexapro) 5 mg PO HS [facility] Stop: 12/14/18 20:59 Finasteride (Proscar) 5 mg PO QPM [facility] Stop: 12/14/18 20:59 Cefazolin Sodium (Ancef 2000mg) 2,000 mg in 15 mls @ 3.75 mls/min IV PREOP [facility] ; Protocol Stop: 11/15/18 05:59 Last Admin: 11/14/18 08:10 Dose: 3.75 mls/min Hydrocortisone Sodium (Succinate 100 mg/ Syringe) 2 mls @ 4 mls/min IV 0600 [facility] Stop: 11/14/18 18:00 Last Admin: 11/14/18 07:01 Dose: 4 mls/min Cefazolin Sodium (Ancef 2000mg) 2,000 mg in 15 mls @ 3.75 mls/min IV Q8H [facility]; Protocol Stop: 11/15/18 00:03 Pantoprazole Sodium 40 mg/ (Syringe) 10 mls @ 5 mls/min IV DAILY@1100 [facility] Stop: 11/18/18 14:29 Last Admin: 11/14/18 13:54 Dose: 5 mls/min Dextrose/Sodium Chloride (D5w And 1/2nss) 1,000 mls @ 125 mls/hr IV .Q8H [facility] Stop: 12/14/18 09:59 Last Admin: 11/14/18 13:55 Dose: 125 mls/hr Iodixanol (Visipaque) 175 ml IV UD PRN PRN Reason: Operative procedure Stop: 11/18/18 10:00 Last Admin: 11/14/18 10:04 Dose: 175 ml Latanoprost (Xalatan Oph) 1 drops OPB PM [facility] Stop: 12/14/18 20:59 Miscellaneous Information (Nursing To Pharmacy Communication) 1 ea N/A ONE ONE Stop: 11/14/18 14:14 Multivitamins ([facility]ivitamin Tab) [facility] [place] [facility]: 12/15/18 08:59 Oxycodone/Acetaminophen (Percocet 5mg/325mg) 1 - 2 tab PO Q4H PRN PRN Reason: Moderate Pain Stop: 11/28/18 09:57 Rosuvastatin Calcium (Crestor) 5 [facility] [place] Stop: 12/15/18 08:59 Tamsulosin HCl (Flomax) 0.4 mg PO QPM [facility] Stop: 12/14/18 20:59 Verapamil HCl (Calan Sr) 120 mg PO QAM [facility] Stop: 12/15/18 08:59 Vitamin B Complex (Vitamin B Complex) 1 tab PO QAM [facility] Stop: 12/15/18 08:59 Vitamin D (Vitamin D3) 1,000 units PO QAM [facility] Stop: 12/15/18 08:59 Warfarin Sodium (Coumadin) 5 mg PO QPM [facility] Stop: 12/14/18 20:59
[2018-11-14] MEDS ORDERED: Nursing to Pharmacy Communication ONE (14:13)
[2018-11-14] MEDS: CEFAZOLIN 2000MG 2,000 MG/15 ML SYR IV SCH ×2 (15:33→23:58)
[2018-11-14] MEDS ORDERED: ESCITALOPRAM OXALATE 10 MG TAB PO SCH (21:00)
[2018-11-14] MEDS ORDERED: LATANOPROST 0.005% OP SOLN 2.5 ML BTL OPB SCH (21:00)
[2018-11-14] MEDS ORDERED: FINASTERIDE 5 MG TAB PO SCH (21:00)
[2018-11-14] MEDS ORDERED: GLUCOSAMINE CHONDROITIN PO SCH (21:00)
[2018-11-14] MEDS ORDERED: TAMSULOSIN HCL 0.4 MG CAP PO SCH (21:00)
[2018-11-14] MEDS ORDERED: CHROMIUM PICOLINATE 400 MCG PO SCH (21:00)
[2018-11-14] MEDS ORDERED: ASPIRIN 81 MG ECTAB PO SCH (21:00)
[2018-11-14] MEDS ORDERED: LECITHIN 1200 MG PO SCH (21:00)
[2018-11-14] MEDS ORDERED: WARFARIN SOD 5 MG TAB PO SCH (21:00)
[2018-11-14] MEDS ORDERED: ENOXAPARIN INJ 30 MG/0.3 ML SYR SQ SCH (21:00)
[2018-11-15] MEDS ORDERED: SODIUM CHLORIDE 0.9% 1000ML 1,000 ML IV SCH (01:45)
[2018-11-15 05:26] LABS: Immature Granulocytes # (auto) 0.04 K/uL (0.00-0.02); Immature Granulocytes % (auto) 0.5 %; Lymphocytes # (auto) 0.66 K/uL (1.2-3.4); Lymphocytes % (auto) 8.9 %; Mean Corpuscular Hgb Conc 32.4 g/dL (32-36); Mean Corpuscular Volume 105.3 fL (80-100); Monocytes % (auto) 8.1 %; Neutrophils # (auto) 6.08 K/uL (1.4-6.5); Neutrophils % (auto) 82.5 %; Platelet Count 183 K/uL (130-400); RDW Coefficient of Variation 15.5 % (11.5-14.5); RDW Standard Deviation 59.2 fL (36.4-46.3); Red Blood Count 3.23 M/uL (4.7-6.1); White Blood Count 7.38 K/uL (4.8-10.8)
[2018-11-15 05:29] LABS: BUN Creatinine Ratio 8.4 (10-20); Calcium 7.5 mg/dl (8.5-10.1); Creatinine Clr Calc Pharmacy 55.8 ml/min; Est GFR (African American) 66.9; Est GFR (Non-African American) 57.8; Potassium 4.1 mmol/L (3.5-5.1)
--- NOTE | 2018-11-15 06:50 | Anesthesiology Progress Note ---
Date of Service November 15, 2018 Anesthesia Post Procedure Vital Signs Vital Signs: Temp Pulse Pulse Resp BP BP BP 11/15/18 06:30 36.7 C 97 H 18 118/65 11/15/18 04:23 95 H 13 11/15/18 04:00 36.5 C 99 H 13 133/76 11/15/18 03:00 103 H 12 116/75 11/15/18 02:00 101 H 15 121/76 11/15/18 01:00 96 H 14 125/70 11/15/18 00:00 99 H 13 128/78 11/14/18 23:00 36.5 C 103 H 105 H 14 133/85 128/78 11/14/18 22:00 36.8 C 104 H 96 H 15 125/76 125/76 11/14/18 21:00 36.7 C 95 H 102 H 13 133/76 133/76 11/14/18 20:43 98 H 16 130/77 11/14/18 20:33 96 H 18 11/14/18 20:00 108 H 20 148/75 H 11/14/18 19:00 36.7 C 105 H 105 H 22 139/92 144/74 H 11/14/18 18:00 36.7 C 86 17 134/87 11/14/18 16:00 97 H 18 120/68 11/14/18 15:00 87 14 129/82 11/14/18 14:00 88 19 125/71 11/14/18 13:30 84 16 119/77 11/14/18 12:30 74 16 109/67 11/14/18 12:15 80 17 112/71 11/14/18 12:00 86 17 119/64 11/14/18 11:30 36.8 C 87 16 124/76 11/14/18 11:05 74 17 110/53 L 11/14/18 10:55 37.3 C 77 14 104/65 11/14/18 10:45 86 19 109/54 L 11/14/18 10:35 80 12 107/68 11/14/18 10:25 89 12 118/65 11/14/18 10:19 36.4 C L 95 H 16 111/69 Pulse Ox 11/15/18 06:30 93 11/15/18 04:23 97 11/15/18 04:00 98 11/15/18 03:00 99 11/15/18 02:00 99 11/15/18 01:00 94 11/15/18 00:00 94 11/14/18 23:00 93 11/14/18 22:00 94 11/14/18 21:00 91 11/14/18 20:43 95 11/14/18 20:33 94 11/14/18 20:00 94 11/14/18 19:00 94 11/14/18 18:00 92 11/14/18 16:00 89 L 11/14/18 15:00 96 11/14/18 14:00 97 11/14/18 13:30 96 11/14/18 12:30 97 11/14/18 12:15 95 11/14/18 12:00 95 11/14/18 11:30 95 11/14/18 11:05 95 11/14/18 10:55 95 11/14/18 10:45 94 11/14/18 10:35 98 11/14/18 10:25 98 11/14/18 10:19 90 Notes Mental Status: alert / awake / arousable and participated in evaluation Patient Amnestic to Procedure: Yes Nausea / Vomiting: adequately controlled Pain: adequately controlled Airway Patency, RR, SpO2: stable & adequate BP & HR: stable & adequate Hydration State: stable & adequate Anesthetic Complications: no major complications apparent and Pt Satisfied with anesthetic care
--- NOTE | 2018-11-15 07:54 | Critical Care Progress Note ---
Date of Service November 15, 2018 Physical Exam Vital Signs (Past 24 Hours): Last Vital Signs Temp 36.7 C 11/15/18 06:30 Pulse 97 H 11/15/18 06:30 Resp 18 11/15/18 06:30 BP 118/65 11/15/18 06:30 Pulse Ox 93 11/15/18 06:30
[2018-11-15] MEDS ORDERED: MULTIVITAMIN TAB PO SCH (09:00)
[2018-11-15] MEDS ORDERED: VITAMIN B COMPLEX TAB PO SCH (09:00)
[2018-11-15] MEDS ORDERED: CHOLECALCIFEROL 1,000 UNITS TAB PO SCH (09:00)
[2018-11-15] MEDS ORDERED: ROSUVASTATIN CALCIUM 5 MG TAB PO SCH (09:00)
[2018-11-15] MEDS ORDERED: VERAPAMIL HCL 120 MG TABCR PO SCH (09:00)
[2018-11-15] MEDS: PANTOprazole 40 MG in SYRINGE 0 ML IV SCH (10:24)
--- NOTE | 2018-11-15 11:35 | Surgery Progress Note ---
Date of Service November 15, 2018 Assessment & Plan (1) AAA (abdominal aortic aneurysm) without rupture: Patient doing well D/C home today Subjective No complaints today. No pain in abd or lower extremities. Physical Exam Vital Signs (Past 24 Hours): Last Vital Signs Temp 36.6 C 11/15/18 10:00 Pulse 82 11/15/18 11:00 Resp 18 11/15/18 11:00 BP 124/73 11/15/18 11:00 Pulse Ox 96 11/15/18 11:00 groins wnl good distal flow
--- NOTE | 2018-11-16 14:28 | Discharge Summary ---
Date of Service November 20, 2018 Admission HPI Per Admitting Provider We had the pleasure of seeing Mr. Odonnell in outpatient vascular surgery clinic. As you are aware, he is a 78-year-old gentleman with a history of atrial fibrillation and diagnosed in 2011 with an abdominal aortic aneurysm approximately 3 cm in diameter, followed over the years and finally reached a diameter of 5.5 cm and is here for evaluation and possible repair. The patient reports that he is not having any abdominal problems or discomfort or pain and no back discomfort or pain. He reports that he does not have any claudication symptoms. No open wounds or ulcers. His only complaint is a rash that he has been seen and worked up. He also reports that he has been on Coumadin for his atrial fibrillation without any issues. The patient denies any shortness of breath or chest pain. The patient reports that he is able to walk a quarter mile without any issues. He is able to go up a flight of stairs without any problems. Pt did undergo CTA confirming AAA of 5.5 cm. We recommended pt undergo elective PEVAR d/t risk of rupture. Pt agreeable. Discharge Data Consultations 11/14/18 10:00 Consult Boiler Mechanic Routine Procedures Performed Operation Date: 11/14/18 08:00 Actual Procedures p Percutaneous Endovascular Aortic Aneurysm Repair, Mechanical Closure of Bilateral Femoral Arteries.(Bilateral) - Horacio Bernal MD
--- NOTE | 2018-11-17 10:22 | Discharge Summary ---
Date of Service November 17, 2018 Admission HPI Per Admitting Provider We had the pleasure of seeing Mr. Odonnell in outpatient vascular surgery clinic. As you are aware, he is a 78-year-old gentleman with a history of atrial fibrillation and diagnosed in 2011 with an abdominal aortic aneurysm approximately 3 cm in diameter, followed over the years and finally reached a diameter of 5.5 cm and is here for evaluation and possible repair. The patient reports that he is not having any abdominal problems or discomfort or pain and no back discomfort or pain. He reports that he does not have any claudication symptoms. No open wounds or ulcers. His only complaint is a rash that he has been seen and worked up. He also reports that he has been on Coumadin for his atrial fibrillation without any issues. The patient denies any shortness of breath or chest pain. The patient reports that he is able to walk a quarter mile without any issues. He is able to go up a flight of stairs without any problems. Pt did undergo CTA confirming AAA of 5.5 cm. We recommended pt undergo elective PEVAR d/t risk of rupture. Pt agreeable. Admission [place] [address] History & Physical Report Signed Patient: WILFREDO ODONNELL LAdmit Date: 11/14/18 MR#: [id number] Phy: Horacio Bernal M.D. Acct ID:[id number] Phy: Jonathan Phillips Date: 1940Fam Phy: Age: 78Location: [facility] Sex: M Room/Bed: cc: Horacio Bernal M.D.~ *NOTICE TO RECEIVING CONSTITUTION PARTY/AGENCY This information is strictly Confidential and protected under [place] law. [place] law prohibits you from making any further disclosure of this information unless further disclosure is expressly permitted by the written consent of the person to whom it pertains or is authorized by law. A general authorization for the release of medical or other information is not sufficient for this purpose. Hospital accepts no responsibility if the information is made available to any other person, INCLUDING THE PATIENT. Date of Service November 14, 2018 Assessment & Plan (1) AAA (abdominal aortic aneurysm) without rupture: Patient admitted for a PEVAR of his AAA. I have discussed the risks options and benefits of the procedure with the patient. The patient understands the risks options and benefits and agrees to the procedure. History of Present Illness Chief Complaint: AAA Primary Care Provider: Jonathan Phillips October 24, 2018 Name: [place]ILFR[place] [facility] [place] [id number] : 1940 Date of Service: 10/24/2018 Jonathan Phillips DO [address] [place] [address] PHYSICAL EXAMINATION: The patient is awake, alert, oriented, follows command, does not appear to be in any distress. Blood pressure is 126/80, heart rate of 92, satting 97% on room air. Chest is clear to auscultation bilaterally. No murmurs are appreciated on auscultation. The patient has palpable radial pulses bilaterally, palpable femoral pulses bilaterally, palpable DP pulses bilaterally. No open wounds on his lower extremities, he does have a lot scratches and darkened skin over his lower extremities. He reports that is from a rash is being worked up. No rashes over his groins. The patient has palpable femoral pulses bilaterally. The patient's abdomen is obese but soft, nontender. Has an abdominal hernia that is palpable around the umbilicus. Principal Diagnosis 1. s/p PEVAR 2. AAA Discharge Exam Constitutional WD/WN, vitals as above Eyes PERRL, conjunctivae normal, anicteric sclerae ENMT external ear and nose normal, oropharynx normal Neck trachea midline, no thyromegaly Respiratory normal respiratory effort, lungs clear to auscultation Cardiovascular RRR, no murmur, no edema Gastrointestinal (Abdomen) normal bowel sounds, soft, nontender, no hepatosplenomegaly Musculoskeletal no cyanosis or clubbing, extremities motor strength 5/5 Skin no rashes, warm and dry Trauma: + puncture (BL groin punctures intact. + local tenderness and mild edema and ecchymosi) Neurologic awake; no focal motor deficits and not confused Speech / Cognition: normal speech and normal cognition Psychiatric A+Ox3, euthymic affect Discharge Data Allergies Allergy/AdvReac Type Severity Reaction Status Date / Time No Known Allergies Allergy Verified 11/14/18 06:06 Consultations 11/14/18 10:00 Consult Racing Manager Routine Procedures Performed Operation Date: 11/14/18 08:00 Actual Procedures p Percutaneous Endovascular Aortic Aneurysm Repair, Mechanical Closure of Bilateral Femoral Arteries.(Bilateral) - Horacio Bernal MD Ordered Studies 11/14/18 07:07 EV AAA repair aorta only Routine US guide vascular access Routine Hospital Course (1) AAA (abdominal aortic aneurysm) without rupture: Pt underwent uncomplicated PEVAR. Did well post op and stable for d/c. Total Time Total Time Spent Total Time Spent (In Minutes): 20minutes Total Time Includes: Examination of the Patient, Medication Reconciliation and Communication With Other Providers Discharge Plan Discharge Items Patient Disposition: Home - Self-Care Reason For Visit: Abdominal Aortic Aneurysm Discharge Diagnosis: Abdominal aortic aneurysm Discharge Goals: Therapeutic intervention Activity: Per 'Additional Instructions' section Lifting: Gradually increase as tolerated Non-emergency contact: Surgeon Call non-emergency contact if: you have any medication questions, your symptoms worsen, your pain is not controlled, your pain is worsening, your pain is unusual for you, your pain is concerning for you, your temperature is above 101.5, your wound has increased redness, your wound has increased drainage and your wound pain has increased Follow-up/Referrals: Jonathan Phillips [Primary Care Provider] - Diet: Heart Healthy Addtl Provider Instructions: SPECIAL CARE INSTRUCTIONS: Medications: * Continue to take your medications as directed. Incision/Puncture Site Care: * You will have an incision or puncture in each of your groins. Liquid glue will be used to seal your incisions/puncture site. This will lift off as the incisions/puncture sites heal. * If Liquid glue is not used, there will be small dressings covering your incisions. After you get home, you may remove the dressings and shower - allowing the warm soapy water to run over it. * Be sure to dry the sites well and keep them dry. * DO NOT SOAK IN A TUB/POOL/etc. UNTIL ALL SURGICAL SITES ARE HEALED. DO NOT REMOVE THE GLUE UNTIL THE INCISIONS HEAL. Restrictions: * Limit yourself to parts professional activity for the first week. * You may walk and go up and down steps. * Avoid excessive bending or movement at the level of the incisions or punctures. Risks and Possible Complications: * Infection/Drainage/Bleeding - Drainage or bleeding from the incisions/puncture site should be minimal. If you have excessive bleeding or drainage, call our office ([phone]) right away. * Pain/Numbness - You may experience some mild pain or soreness at your incision sites. You may also have some numbness around the incisions or into the insides of your thighs. Bruising is normal and should resolve within 2 weeks. * Changes in Appetite or Bowel Habits - Mostly related to anesthesia and pain medication, some patients have reported decreased appetite and/or problems with constipation. These symptoms usually improve over a few weeks. Remembering to take an [id number] stool softener, as directed, will help you to avoid constipation. Call our office and seek emergent treatment if you develop: * Fever or chills * Have a temperature greater than 101 degrees F * Any redness or purulent drainage from your incisions or punctures * Severe abdominal, chest or back pain SKIN IRRITATION: * You may experience some redness and/or swelling in the area where radiation was administered. If any skin irritation occurs, please contact your family physician. You will be receiving a call from the Vascular Surgery Nurse after you are discharged. FOLLOW UP VISIT: It is important for you to keep your follow up appointments with your medical provider. Keep any scheduled doctor appointments. Call [phone] to schedule a follow up appointment if one not already scheduled. Prescriptions: New oxycodone-acetaminophen [Percocet] 5-325 mg tablet 1 tab PO Q6H PRN (Reason: pain) Qty: 30 RF: 0 Continued multivitamin Tablet 1 tab PO QAM RF: 0 latanoprost 0.005 % Drops 1 drp OPHTHALMIC (EYE) PM RF: 0 lecithin 1,200 mg Capsule 1,200 mg PO BID RF: 0 aspirin 81 mg Tablet,Delayed Release (Dr/Ec) 81 mg PO QPM RF: 0 verapamil 120 mg Tablet 120 mg PO QAM RF: 0 warfarin 5 mg Tablet 5 mg PO QPM RF: 0 vitamin B complex [B Complex 1] Tablet 1 tab PO QAM RF: 0 glucosamine-chondroitin 500-400 mg Capsule 1 cap PO QPM RF: 0 finasteride 5 mg Tablet 5 mg PO QPM RF: 0 chromium picolinate 400 mcg Tablet 400 mcg PO QPM RF: 0 rosuvastatin 5 mg Tablet 5 mg PO QAM RF: 0 escitalopram oxalate 5 mg Tablet 5 mg PO HS RF: 0 cholecalciferol (vitamin D3) [Vitamin D3] 1,000 unit Tablet 1,000 unit PO QAM RF: 0 tamsulosin 0.4 mg Capsule 0.4 mg PO QPM RF: 0 Changed enoxaparin [Lovenox] 30 mg/0.3 mL Syringe 30 mg SUBCUT DAILY Qty: 0 RF: 0 Stand-Alone Forms: [facility] Discharge Orders: Discharge Order (Routine); Ordered 11/15/18 Ordered By: Horacio Bernal Admission Data Admit Date/Time: 11/14/18 10:00 Attending Provider: Horacio Bernal Admit Provider: Horacio Bernal Primary Care Provider: Jonathan Phillips Other Providers: Zeenat Haro ; Elan Gooden ; Obdulio Lozada ; Darius Mares ; Shaun Ford ; Jonathan Medrano Service: Intensive Care Unit Surgical Other Interventions: Discharge Summary Assessment (RN) Last Done: 11/15/18 12:01 DC Date/Time DO NOT enter until pt leaves facility: 11/15/18 12:50
== END 2018-11-15 12:50 | disposition home or self-care (01) | DRG 254 ==
LOC: ASU 05:39 → 1E 10:00

== ENCOUNTER 2019-11-19 19:59 | Inpatient (IN) ==
--- NOTE | 2019-11-19 21:06 | Emergency Department Note ---
Entered by Amada Rock acting as a scribe for History of Present Illness General Chief complaint: Flu Like Symptoms Stated complaint: FLU LIKE SYMPTOMS Time Seen by Provider: 11/19/19 20:49 Source: patient Mode of arrival: wheelchair Limitations: no limitations History of Present Illness Onset (ago): hour(s) 6 Location: head Radiation: non-radiation Pain Consistency: + constant Maximum Pain Intensity: 2 Current Pain Intensity: 2 Relieved By: + none Exacerbated By: + none Associated symptoms: + fever/chills and + other (-urinary symptoms); no cough Treatments prior to arrival: none The patient is an 79 year old male who presents to the ED with complaints of persistent flu like symptoms for the past few hours. He has a history of newly diagnosed bladder cancer and underwent bladder irrigation with BCG this afternoon. He states he has had intermittent fevers and chills since he got back from treatment. He rates his discomfort as a 2/10 in severity. He also vomited earlier this evening. He denies any cough, back pain or urinary symptoms. The patient does have a history of newly diagnosed bladder cancer. Home Medications Home Medications Medication Instructions Recorded Confirmed Type aspirin 81 mg PO QPM 06/23/18 11/19/19 History cholecalciferol (vitamin D3) 1,000 unit PO QAM 06/23/18 11/19/19 History [Vitamin D3] chromium picolinate 400 mcg PO QAM 06/23/18 11/19/19 History escitalopram oxalate 5 mg PO HS 06/23/18 11/19/19 History finasteride 5 mg PO QPM 06/23/18 11/19/19 History glucosamine-chondroitin 1 cap PO QPM 06/23/18 11/19/19 History latanoprost 1 drp OPB PM 06/23/18 11/19/19 History lecithin 1,200 mg PO QPM 06/23/18 11/19/19 History multivitamin 1 tab PO QAM 06/23/18 11/19/19 History tamsulosin 0.4 mg PO QPM 11/06/18 11/19/19 History hydroxyzine HCl 25 mg PO HS 04/06/19 11/19/19 History triamcinolone acetonide 1 applic TOPICAL UD PRN 04/06/19 11/19/19 History rosuvastatin 10 mg tablet 10 mg PO QAM #90 tab 07/17/19 11/19/19 Rx verapamil 120 mg tablet 120 mg PO QAM #90 tab 07/17/19 11/19/19 Rx warfarin 5 mg tablet 5 mg PO DAILY #90 tab 11/16/19 11/19/19 Rx vitamin B complex 1 tab PO DAILY 11/19/19 11/19/19 History Allergies Allergy/AdvReac Type Severity Reaction Status Date / Time No Known Allergies Allergy Unverified 11/19/19 23:35 Past Med/Surg History Medical History AAA (abdominal aortic aneurysm) (Resolved) HX OF (REPAIRED 10/2018) AAA (abdominal aortic aneurysm) without rupture Atrial fibrillation DX 2011/NO HX CARDIOVERSION Bilateral inguinal hernia BPH (benign prostatic hyperplasia) CAD in [place] artery Cardiomyopathy Cardiomyopathy Depression Depressive disorder Dizziness Dyslipidemia GERD (gastroesophageal reflux disease) CONTROLLED GERD (gastroesophageal reflux disease) Glaucoma Headache Hearing deficit HTN (hypertension) Hyperlipidemia Hypertension Ischemic cardiomyopathy Mitral regurgitation Osteoarthritis PAD (peripheral artery disease) Permanent atrial fibrillation Skin abnormality LIGHT TREATMENTS FOR 2X PER WEEK Tremor HANDS; SUSPECTED BENIGN/ESSENTIAL Tremor Umbilical hernia Umbilical hernia Surgical History H/O left inguinal hernia repair H/O right inguinal hernia repair 01/25/19: MAC #3, ETT #7.5, HiLo Oral, Grade 2 View History of cataract surgery B/L History of colonoscopy History of endovascular stent graft for abdominal aortic aneurysm (10/2018) History of nasal surgery History of repair of aneurysm of abdominal aorta 11/14/[address] DOWNEY, STENT IN [place] MAC #3, ETT #7.5, HiLo Oral, Grade 1 View History of shoulder surgery B/L Social History Preferred Language: Maldivian Communication Ability: Effective Field Crop [employer] Required: No Beliefs That Will Affect Care: None Current Living Situation: Spouse Feels Safe at Home: Yes Smoking Status: Former smoker Smoking End Date: 1999 ; Second Hand Exposure: No ; Hx Alcohol Use: No Hx Substance Use: No Review of Systems See HPI for pertinent positives & negatives. and A total of 10 systems reviewed and were otherwise negative Physical Exam Vital Signs Vital Signs - 24 hr 11/19/19 20:16 11/19/19 20:52 11/19/19 21:00 Temperature 37.4 C Temperature Source Oral Pulse Rate 152 H 138 H Pulse Rate from SpO2 Sensor Respiratory Rate 20 23 Respiratory Effort / Characteristics Non-Labored Spontaneous Respiratory Depth Normal Blood Pressure 151/87 H Blood Pressure Mean 120 Pulse Oximetry 91 98 Oxygen Delivery Method Room Air Room Air Oxygen Flow Rate Sepsis Recent Fever Within 48 Hours Yes Sepsis Action Taken by Nursing No Action Required Oxygen Flow Rate - Titration Pulse Oximetry Post Tiitration 11/19/19 21:15 11/19/19 21:16 11/19/19 21:20 Temperature Temperature Source Pulse Rate 139 H 163 H Pulse Rate from SpO2 Sensor 135 H 140 H Respiratory Rate 24 25 H Respiratory Effort / Characteristics Respiratory Depth Blood Pressure 118/91 Blood Pressure Mean 109 Pulse Oximetry 94 94 89 L Oxygen Delivery Method Nasal Cannula Oxygen Flow Rate 0 Sepsis Recent Fever Within 48 Hours Sepsis Action Taken by Nursing Oxygen Flow Rate - Titration 2 Pulse Oximetry Post Tiitration 94 11/19/19 21:45 11/19/19 22:00 11/19/19 22:15 Temperature Temperature Source Pulse Rate 128 H 122 H 130 H Pulse Rate from SpO2 Sensor 124 H 125 H 132 H Respiratory Rate 23 20 23 Respiratory Effort / Characteristics Respiratory Depth Blood Pressure 144/72 H 134/69 127/67 Blood Pressure Mean 81 80 80 Pulse Oximetry 95 95 94 Oxygen Delivery Method Oxygen Flow Rate Sepsis Recent Fever Within 48 Hours Sepsis Action Taken by Nursing Oxygen Flow Rate - Titration Pulse Oximetry Post Tiitration 11/19/19 22:30 11/19/19 22:45 11/19/19 23:09 Temperature Temperature Source Pulse Rate 144 H 135 H 138 H Pulse Rate from SpO2 Sensor 142 H 126 H 130 H Respiratory Rate 22 22 22 Respiratory Effort / Characteristics Respiratory Depth Blood Pressure 117/69 124/88 132/62 Blood Pressure Mean 90 108 79 Pulse Oximetry 94 96 97 Oxygen Delivery Method Oxygen Flow Rate Sepsis Recent Fever Within 48 Hours Sepsis Action Taken by Nursing Oxygen Flow Rate - Titration Pulse Oximetry Post Tiitration 11/20/19 00:00 11/20/19 00:15 11/20/19 00:16 Temperature Temperature Source Pulse Rate 129 H 125 H 125 H Pulse Rate from SpO2 Sensor 135 H 123 H 116 H Respiratory Rate 20 19 19 Respiratory Effort / Characteristics Respiratory Depth Blood Pressure 108/66 108/85 118/63 Blood Pressure Mean 77 102 73 Pulse Oximetry 97 96 96 Oxygen Delivery Method Oxygen Flow Rate Sepsis Recent Fever Within 48 Hours Sepsis Action Taken by Nursing Oxygen Flow Rate - Titration Pulse Oximetry Post Tiitration 11/20/19 00:18 11/20/19 00:20 11/20/19 00:22 Temperature Temperature Source Pulse Rate 125 H 108 H 101 H Pulse Rate from SpO2 Sensor 133 H 105 H 99 H Respiratory Rate 21 19 20 Respiratory Effort / Characteristics Respiratory Depth Blood Pressure 107/62 104/60 105/65 Blood Pressure Mean 88 74 77 Pulse Oximetry 96 96 95 Oxygen Delivery Method Oxygen Flow Rate Sepsis Recent Fever Within 48 Hours Sepsis Action Taken by Nursing Oxygen Flow Rate - Titration Pulse Oximetry Post Tiitration 11/20/19 00:24 11/20/19 00:30 Temperature Temperature Source Pulse Rate 94 H 93 H Pulse Rate from SpO2 Sensor 97 H 91 H Respiratory Rate 22 21 Respiratory Effort / Characteristics Respiratory Depth Blood Pressure 99/56 L 124/73 Blood Pressure Mean 74 101 Pulse Oximetry 95 96 Oxygen Delivery Method Oxygen Flow Rate Sepsis Recent Fever Within 48 Hours Sepsis Action Taken by Nursing Oxygen Flow Rate - Titration Pulse Oximetry Post Tiitration GENERAL: Patient is awake alert in no acute distress patient is resting comfortably and showing no signs of anxiety EYES: The conjunctivae are clear. The pupils are round and reactive. EARS, NOSE, MOUTH AND THROAT: The nose is without any evidence of any deformity. Mucous membranes are moist. Tongue is midline. NECK: The neck is nontender and supple. RESPIRATORY: Diminished breath sounds are noted at both bases. There is no tachypnea or conversational dyspnea. CARDIOVASCULAR: Tachycardic rate with irregular rhythm was noted to auscultation. No definite murmur was noted. GASTROINTESTINAL: The abdomen is soft. Abdomen is nontender. MUSCULOSKELETAL/EXTREMITIES: There is no evidence of gross deformity full range of motion is noted in the hips and shoulders. SKIN: There is no obvious evidence of any rash. Skin was warm and dry. Trace pedal edema was noted bilaterally. NEUROLOGIC: Patient is awake alert and oriented x3. Course Course 2053: The patient was evaluated in room B6 and a complete history and physical were performed. 0015: I reevaluated the patient. He is resting comfortably. I discussed my recommendation he remain in the hospital for further evaluation and management and he is agreeable with the plan. 0025: I discussed the patients case with Dr. Reeves, [place] Hospitalist. The patient will be further evaluated. Administered Medications Ioversol (Optiray 320 125ml) 125 ml IV ONCE PRN PRN Reason: Interaction Checking Stop: 11/23/19 23:06 Last Admin: 11/19/19 23:07 Dose: 112 ml Documented by: [id number] Discontinued Medications Diltiazem HCl (Cardizem) 20 mg IV NOW STA Stop: 11/19/19 23:52 Last Admin: 11/20/19 00:13 Dose: 20 mg Documented by: [id number] Cosigned by: [id number] Sodium Chloride (Nss 1000ml) 500 mls @ 999 mls/hr IV .Q31M ONE Stop: 11/19/19 21:40 Last Infusion: 11/19/19 22:22 Dose: 0 mls/hr Documented by: [id number] Admin: 11/19/19 21:15 Dose: 999 mls/hr Documented by: [id number] Magnesium Sulfate/Dextrose (Magnesium Sulfate / D5w) 1 gm in 100 mls @ 100 mls/hr IV Q1H [place] Stop: 11/19/19 23:59 Last Infusion: 11/20/19 01:25 Dose: 0 mls/hr Documented by: [id number] Admin: 11/20/19 00:06 Dose: 100 mls/hr Documented by: [id number] Infusion: 11/20/19 00:03 Dose: 0 mls/hr Documented by: [id number] Admin: 11/19/19 22:27 Dose: 100 mls/hr Documented by: [id number] Sodium Chloride (Nss 1000ml) 500 mls @ 999 mls/hr IV .Q31M ONE Stop: 11/19/19 22:22 Last Infusion: 11/19/19 23:11 Dose: 0 mls/hr Documented by: [id number] Admin: 11/19/19 22:26 Dose: 999 mls/hr Documented by: [id number] Piperacillin Sod/Tazobactam Sod (Zosyn) 4.5 gm in 120 mls @ 240 mls/hr IV NOW ONE Stop: 11/20/19 00:39 Last Infusion: 11/20/19 01:25 Dose: 0 mls/hr Documented by: [id number] Admin: 11/20/19 00:32 Dose: 240 mls/hr Documented by: [id number] Critical Care Time Critical Care Time: Yes Total Critical Care Time: 45 I have personally spent greater than 45 minutes of critical care time in the direct management of this patient. This includes bedside care, interpretation of diagnostic studies, and testing, discussion with consultants, patient, and family members, and other required patient management activities. This 45 minutes is in excess of all separately billable procedures. Medical Decision Making Differential Diagnosis Differential: Viral, Pharyngitis, Cellulitis, Pneumonia, Influenza, Meningitis, Sepsis, Bacteremia, UTI/Pyelonephritis, Endocrine, Toxicologic, amongst other pathologies entertained. Medical Records Attestation: I reviewed the patient's medical records. Home Medications Current Medication List: was personally reviewed by me Laboratory Data Attestation: I reviewed the patient's lab results. Result diagrams: 11/19/19 20:30 11/19/19 20:30 Lab Results 11/19/19 11/19/19 11/19/19 Range/Units 20:30 20:30 20:30 WBC 12.53 H (4.8-10.8) K/uL RBC 4.08 L (4.7-6.1) M/uL Hgb 13.9 L (14.0-18.0) g/dL Hct 41.2 L (42-52) % MCV 101.0 H (80-100) fL MCH 34.1 H (25-34) pg MCHC 33.7 (32-36) g/dL RDW Std Deviation 54.9 H (36.4-46.3) fL RDW Coeff of Vera 15.0 H (11.5-14.5) % Plt Count 198 (130-400) K/uL MPV 10.2 (7.4-10.4) fL Immature Gran % (Auto) 0.6 % Neut % (Auto) 87.7 % Lymph % (Auto) 4.3 % Christian % (Auto) 6.9 % Eos % (Auto) 0.4 % Baso % (Auto) 0.1 % Immature Gran # (Auto) 0.08 H (0.00-0.02) K/uL Neut # (Auto) 10.99 H (1.4-6.5) K/uL Lymph # (Auto) 0.54 L (1.2-3.4) K/uL Christian # (Auto) 0.86 H (0.11-0.59) K/uL Eos # (Auto) 0.05 (0-0.5) K/uL Baso # (Auto) 0.01 (0-0.2) K/uL Polychromasia 1+ Anisocytosis Present PT Cancelled INR Cancelled APTT Cancelled PTT Ratio Cancelled Sodium 137 (136-145) mmol/L Potassium 3.8 (3.5-5.1) mmol/L Chloride 104 (98-107) mmol/L Carbon Dioxide 27 (21-32) mmol/L Anion Gap 6.0 (3-11) BUN 22 H (7-18) mg/dl Creatinine 1.45 H (0.6-1.4) mg/dl Est Cr Clr Drug Dosing 45.8 ml/min Est GFR ( Amer) 52.3 Est GFR (Non-Af Amer) 45.2 BUN/Creatinine Ratio 15.2 (10-20) Glucose 134 H (70-99) mg/dl Lactate (0.4-2.0) mmol/L Calcium 9.0 (8.5-10.1) mg/dl Magnesium 1.6 L (1.8-2.4) mg/dl Total Bilirubin 1.5 H (0.2-1) mg/dl AST 29 (15-37) U/L ALT 24 (12-78) U/L Alkaline Phosphatase 52 (45-117) U/L Troponin I < 0.015 (0-0.045) ng/ml Total Protein 7.7 (6.4-8.2) gm/dl Albumin 3.7 (3.4-5.0) gm/dl Globulin 4.0 (2.5-4.0) gm/dl Albumin/Globulin Ratio 0.9 (0.9-2) Procalcitonin (0-0.5) ng/ml Urine Color Urine Appearance (Clear) Urine pH (4.5-7.5) Ur Specific [place] (1.000-1.030) Urine Protein (Negative) Urine Glucose (UA) (Negative) Urine Ketones (Negative) Urine Blood (Negative) Urine Nitrite (Negative) Urine Bilirubin (Negative) Urine Urobilinogen (Negative) Ur Leukocyte Esterase (Negative) Urine WBC (Auto) (0-5) /hpf Urine RBC (Auto) (0-4) /hpf U Hyaline Cast (Auto) (0-5) /lpf U Epithel Cells (Auto) (0-5) /lpf Urine Bacteria (Auto) (Negative) Influenza Type A (PCR) (Neg) Influenza Type B (PCR) (Neg) 11/19/19 11/19/19 11/19/19 Range/Units 20:30 21:13 21:14 WBC (4.8-10.8) K/uL RBC (4.7-6.1) M/uL Hgb (14.0-18.0) g/dL Hct (42-52) % MCV (80-100) fL MCH (25-34) pg MCHC (32-36) g/dL RDW Std Deviation (36.4-46.3) fL RDW Coeff of Vera (11.5-14.5) % Plt Count (130-400) K/uL MPV (7.4-10.4) fL Immature Gran % (Auto) % Neut % (Auto) % Lymph % (Auto) % Christian % (Auto) % Eos % (Auto) % Baso % (Auto) % Immature Gran # (Auto) (0.00-0.02) K/uL Neut # (Auto) (1.4-6.5) K/uL Lymph # (Auto) (1.2-3.4) K/uL Christian # (Auto) (0.11-0.59) K/uL Eos # (Auto) (0-0.5) K/uL Baso # (Auto) (0-0.2) K/uL Polychromasia Anisocytosis PT INR APTT PTT Ratio Sodium (136-145) mmol/L Potassium (3.5-5.1) mmol/L Chloride (98-107) mmol/L Carbon Dioxide (21-32) mmol/L Anion Gap (3-11) BUN (7-18) mg/dl Creatinine (0.6-1.4) mg/dl Est Cr Clr Drug Dosing ml/min Est GFR ( Amer) Est GFR (Non-Af Amer) BUN/Creatinine Ratio (10-20) Glucose (70-99) mg/dl Lactate 1.8 (0.4-2.0) mmol/L Calcium (8.5-10.1) mg/dl Magnesium (1.8-2.4) mg/dl Total Bilirubin (0.2-1) mg/dl AST (15-37) U/L ALT (12-78) U/L Alkaline Phosphatase (45-117) U/L Troponin I (0-0.045) ng/ml Total Protein (6.4-8.2) gm/dl Albumin (3.4-5.0) gm/dl Globulin (2.5-4.0) gm/dl Albumin/Globulin Ratio (0.9-2) Procalcitonin 0.46 (0-0.5) ng/ml Urine Color Urine Appearance (Clear) Urine pH (4.5-7.5) Ur Specific [place] (1.000-1.030) Urine Protein (Negative) Urine Glucose (UA) (Negative) Urine Ketones (Negative) Urine Blood (Negative) Urine Nitrite (Negative) Urine Bilirubin (Negative) Urine Urobilinogen (Negative) Ur Leukocyte Esterase (Negative) Urine WBC (Auto) (0-5) /hpf Urine RBC (Auto) (0-4) /hpf U Hyaline Cast (Auto) (0-5) /lpf U Epithel Cells (Auto) (0-5) /lpf Urine Bacteria (Auto) (Negative) Influenza Type A (PCR) Neg for Influ A (Neg) Influenza Type B (PCR) Neg for Influ B (Neg) 11/19/19 11/19/19 Range/Units 21:34 23:29 WBC (4.8-10.8) K/uL RBC (4.7-6.1) M/uL Hgb (14.0-18.0) g/dL Hct (42-52) % MCV (80-100) fL MCH (25-34) pg MCHC (32-36) g/dL RDW Std Deviation (36.4-46.3) fL RDW Coeff of Vera (11.5-14.5) % Plt Count (130-400) K/uL MPV (7.4-10.4) fL Immature Gran % (Auto) % Neut % (Auto) % Lymph % (Auto) % Christian % (Auto) % Eos % (Auto) % Baso % (Auto) % Immature Gran # (Auto) (0.00-0.02) K/uL Neut # (Auto) (1.4-6.5) K/uL Lymph # (Auto) (1.2-3.4) K/uL Christian # (Auto) (0.11-0.59) K/uL Eos # (Auto) (0-0.5) K/uL Baso # (Auto) (0-0.2) K/uL Polychromasia Anisocytosis PT 27.7 H INR 2.9 H APTT 36.9 H PTT Ratio 1.4 Sodium (136-145) mmol/L Potassium (3.5-5.1) mmol/L Chloride (98-107) mmol/L Carbon Dioxide (21-32) mmol/L Anion Gap (3-11) BUN (7-18) mg/dl Creatinine (0.6-1.4) mg/dl Est Cr Clr Drug Dosing ml/min Est GFR ( Amer) Est GFR (Non-Af Amer) BUN/Creatinine Ratio (10-20) Glucose (70-99) mg/dl Lactate (0.4-2.0) mmol/L Calcium (8.5-10.1) mg/dl Magnesium (1.8-2.4) mg/dl Total Bilirubin (0.2-1) mg/dl AST (15-37) U/L ALT (12-78) U/L Alkaline Phosphatase (45-117) U/L Troponin I (0-0.045) ng/ml Total Protein (6.4-8.2) gm/dl Albumin (3.4-5.0) gm/dl Globulin (2.5-4.0) gm/dl Albumin/Globulin Ratio (0.9-2) Procalcitonin (0-0.5) ng/ml Urine Color Yellow Urine Appearance Cloudy A (Clear) Urine pH 6.0 (4.5-7.5) Ur Specific [place] 1.032 H (1.000-1.030) Urine Protein Trace H (Negative) Urine Glucose (UA) Negative (Negative) Urine Ketones Negative (Negative) Urine Blood 3+ H (Negative) Urine Nitrite Negative (Negative) Urine Bilirubin Negative (Negative) Urine Urobilinogen Negative (Negative) Ur Leukocyte Esterase 2+ H (Negative) Urine WBC (Auto) >30 H (0-5) /hpf Urine RBC (Auto) >30 H (0-4) /hpf U Hyaline Cast (Auto) 0 (0-5) /lpf U Epithel Cells (Auto) 0-5 (0-5) /lpf Urine Bacteria (Auto) Negative (Negative) Influenza Type A (PCR) (Neg) Influenza Type B (PCR) (Neg) Imaging Data My Impression: CHEST X-RAY No pulmonary embolism, no infiltrate. Radiologist's Impression: Preliminary Findings Only See Final Report For Complete Findings CTA CHEST: No pulmonary embolism or acute aortic syndrome. No consolidation, interstitial edema, pleural effusion, or pneumothorax. Mild dependent atelectasis in the lower lobes. Coronary artery calcifications. Radiologist: Yo Henson MD Study ready at 23:18 and initial results transmitted at 23:44 ECG Data Attestation: I personally reviewed and interpreted this ECG as follows: Indication: + weakness Rate (beats per minute): 150 Rhythm: + atrial fibrillation (with RVR) ECG ST segments: + ST depression (Diffuse) Comparison ECG Date: from (03/08/2019) Change: the following changes noted (Increased rate, otherwise no change) Blood Pressure Blood Pressure Findings: Elevated blood pressure MDM Narrative The patient is an 79-year-old male who presented to the emergency department for an evaluation palpitations. The patient also had low-grade fever and was experiencing chills and rigors. The patient has a history of bladder cancer. He was treated with BCG treatment today and states that he had a urinalysis that did not appear to be consistent with an infection according to his primary urologist. Patient was found to have atrial fibrillation with rapid ventricular response. He had episodes of hypoxia while he was in the emergency department however his chest x-ray did not appear to be consistent with any acute process. Given the patient's history of malignancy further radiographic studies were obtained including CT of the chest to rule out venous thromboembolic disease. I discussed the patient's laboratory and radiographic studies with him. He was treated with IV fluids and IV antibiotics for presumed urinary tract infection. He was also treated with IV Cardizem for atrial fibrillation with rapid ventricular response. He was reevaluated multiple times. He was feeling much better on subsequent reevaluation. Given his findings I discussed his case with the on-call [facility] hospitalist group. They have agreed to evaluate the patient in the emergency department for further management and disposition. Impression & Plan Atrial fibrillation with RVR, UTI (urinary tract infection), Hypoxia Discharge Plan Visit Data Chief Complaint: Flu Like Symptoms Stated Complaint: FLU LIKE SYMPTOMS ED Provider: Jeremiah Ortiz Discharge Problem: Atrial fibrillation with RVR, UTI (urinary tract infection), Hypoxia Patient Disposition: Being Evaluated by Hospitalist Forms Stand Alone Forms: My [facility] Prescriptions Prescriptions: No Action warfarin 5 mg tablet 5 mg PO DAILY Qty: 90 RF: 3 verapamil 120 mg tablet 120 mg PO QAM Qty: 90 RF: 3 rosuvastatin 10 mg tablet 10 mg PO QAM Qty: 90 RF: 3 multivitamin Tablet 1 tab PO QAM RF: 0 latanoprost 0.005 % Drops 1 drp OPB PM RF: 0 lecithin 1,200 mg Capsule 1,200 mg PO QPM RF: 0 aspirin 81 mg Tablet,Delayed Release (Dr/Ec) 81 mg PO QPM RF: 0 glucosamine-chondroitin 500-400 mg Capsule 1 cap PO QPM RF: 0 finasteride 5 mg Tablet 5 mg PO QPM RF: 0 chromium picolinate 400 mcg Tablet 400 mcg PO QAM RF: 0 escitalopram oxalate 5 mg Tablet 5 mg PO HS RF: 0 cholecalciferol (vitamin D3) [Vitamin D3] 1,000 unit Tablet 1,000 unit PO QAM RF: 0 tamsulosin 0.4 mg Capsule 0.4 mg PO QPM RF: 0 hydroxyzine HCl 25 mg Tablet 25 mg PO HS RF: 0 triamcinolone acetonide 0.1 % Cream 1 applic TOPICAL UD PRN (Reason: Rash) RF: 0 vitamin B complex Tablet 1 tab PO DAILY RF: 0 Referrals Referrals: Jonathan Phillips [Primary Care Provider] - Discharge Problem: UTI (urinary tract infection) Qualifiers: Urinary tract infection type: site unspecified Hematuria presence: with annette turia Qualified Code(s): N39.0 - Urinary tract infection, site not specified The scribe's documentation has been prepared under my direction and personally reviewed by me in its entirety. I confirm that the note above accurately reflects all work, treatment, procedures, and medical decision making performed by me.
[2019-11-19 21:07] LABS: Basophils # (auto) 0.01 K/uL (0-0.2); Basophils % (auto) 0.1 %; Eosinophils # (auto) 0.05 K/uL (0-0.5); Eosinophils % (auto) 0.4 %; Hematocrit (blood only) 41.2 % (42-52); Hemoglobin 13.9 g/dL (14.0-18.0); Immature Granulocytes # (auto) 0.08 K/uL (0.00-0.02); Immature Granulocytes % (auto) 0.6 %; Lymphocytes # (auto) 0.54 K/uL (1.2-3.4); Lymphocytes % (auto) 4.3 %; Mean Corpuscular Hemoglobin 34.1 pg (25-34); Mean Corpuscular Hgb Conc 33.7 g/dL (32-36); Mean Platelet Volume 10.2 fL (7.4-10.4); Monocytes # (auto) 0.86 K/uL (0.11-0.59); Monocytes % (auto) 6.9 %; Neutrophils # (auto) 10.99 K/uL (1.4-6.5); Neutrophils % (auto) 87.7 %; Platelet Count 198 K/uL (130-400); RDW Standard Deviation 54.9 fL (36.4-46.3); Red Blood Count 4.08 M/uL (4.7-6.1); White Blood Count 12.53 K/uL (4.8-10.8)
[2019-11-19] MEDS ORDERED: SODIUM CHLORIDE 0.9% 1000ML 500 ML IV ONE ×2 (21:10→21:52)
[2019-11-19 21:24] LABS: Alanine Aminotransferase 24 U/L (12-78); Albumin Level 3.7 gm/dl (3.4-5.0); Aspartate Aminotransferase 29 U/L (15-37); BUN Creatinine Ratio 15.2 (10-20); Blood Urea Nitrogen 22 mg/dl (7-18); Carbon Dioxide 27 mmol/L (21-32); Chloride 104 mmol/L (98-107); Creatinine Clr Calc Pharmacy 45.8 ml/min; Est GFR (African American) 52.3; Est GFR (Non-African American) 45.2; Glucose 134 mg/dl (70-99); Magnesium 1.6 mg/dl (1.8-2.4); Potassium 3.8 mmol/L (3.5-5.1); Sodium 137 mmol/L (136-145)
[2019-11-19 21:29] LABS: Albumin Globulin Ratio 0.9 (0.9-2); Alkaline Phosphatase 52 U/L (45-117); Bilirubin,Total 1.5 mg/dl (0.2-1); Total Protein 7.7 gm/dl (6.4-8.2); Troponin I < 0.015 ng/ml (0-0.045)
--- NOTE | 2019-11-19 21:38 | XRay Report ---
XR chest 1V portable CLINICAL HISTORY: SEPSIS COMPARISON STUDY: Chest radiograph June 07, 2019. FINDINGS: Lung volumes are normal. Lungs are clear. There is no pneumothorax or pleural effusion. Mil d cardiomegaly is unchanged. Mediastinal contours are normal. There is no evidence for pulmonary clemente a. IMPRESSION: No acute cardiopulmonary findings. No change in appearance of the chest. ACT 112: Negative or not required by law. Electronically signed by: Sabino Mccormick M.D. 11/19/2019 9:37 PM
[2019-11-19 21:40] LABS: Anisocytosis Present; Polychromasia 1+
[2019-11-19 21:54] LABS: INR 2.9 (0.9-1.1); Partial Thromboplastin Ratio 1.4; Partial Thromboplastin Time 36.9 Seconds (21.0-31.0); Prothrombin Time 27.7 Seconds (9.0-12.0)
[2019-11-19 21:59] LABS: Influenza A virus by PCR Neg for Influ A (Neg); Influenza B virus by PCR Neg for Influ B (Neg)
[2019-11-19] MEDS: MAGNESIUM SULFATE / D5W 1 GM/100 ML BAG IV SCH (22:27)
[2019-11-19] MEDS ORDERED: OPTIRAY 320 125ml IV PRN (23:07)
[2019-11-19 23:51] LABS: Appearance Urine Cloudy (Clear); Bacteria Urine Automated Negative (Negative); Bilirubin Urine Negative (Negative); Blood Urine 3+ (Negative); Cast Urine Automated 0 /lpf (0-5); Color Urine Yellow; Epithelial Cell Urine Auto 0-5 /lpf (0-5); Glucose Urine UA Negative (Negative); Ketones Urine Negative (Negative); Leukocyte Esterase Urine 2+ (Negative); Nitrite Urine Negative (Negative); Protein Urine Trace (Negative); RBC Urine Automated >30 /hpf (0-4); Specific Gravity Urine 1.032 (1.000-1.030); Urobilinogen Urine Negative (Negative); WBC Urine Automated >30 /hpf (0-5)
[2019-11-19] MEDS ORDERED: dilTIAZem HCl 5 MG/ML 5 ML VIAL IV STA (23:51)
[2019-11-20] MEDS: MAGNESIUM SULFATE / D5W 1 GM/100 ML BAG IV SCH (00:06)
[2019-11-20] MEDS ORDERED: PIPERACILLIN/TAZOBACTAM 4.5 GM/120 ML BAG IV ONE (00:10)
[2019-11-20] MEDS ORDERED: PIPERACILL/TAZOBAC CONSULT ACTIVE PRN ×2 (00:10→01:49)
[2019-11-20] MEDS ORDERED: METOPROLOL TARTRATE 1 MG/ML VIAL IV PRN (01:50)
[2019-11-20] MEDS ORDERED: SODIUM CHLORIDE 0.9% 1000ML 1,000 ML IV SCH (02:00)
[2019-11-20] MEDS ORDERED: TAMSULOSIN HCL 0.4 MG CAP PO ONE (03:51)
[2019-11-20] MEDS ORDERED: TRIAMCINOLONE ACET 0.1% CR 15 GM TUBE TOP PRN (03:51)
[2019-11-20] MEDS ORDERED: FINASTERIDE 5 MG TAB PO STA (03:51)
[2019-11-20] MEDS ORDERED: ALUMINUM/MAGNESIUM SUSP 30 ML UDC PO PRN (03:51)
[2019-11-20] MEDS ORDERED: MAGNESIUM HYDROXIDE SUSP 30 ML UDC PO PRN (03:51)
[2019-11-20] MEDS ORDERED: ACETAMINOPHEN 325 MG TAB PO PRN (03:51)
[2019-11-20] MEDS ORDERED: ONDANSETRON INJ 2 MG/ML 2 ML VIAL IV PRN (03:51)
[2019-11-20] MEDS: PIPERACILLIN/TAZOBACTAM 3.375 GM in DEXTROSE 5% 100 ML IV SCH ×3 (05:29→21:23)
--- NOTE | 2019-11-20 06:30 | History & Physical Report ---
Date of Service November 20, 2019 Assessment & Plan (1) Malignant neoplasm of bladder: Patient underwent BCG treatment this morning, developed a uncharacteristically gross hematuria, followed by temperature, fevers and chills. Urinalysis looks abnormal, that symptoms are likely related to UTI. Follow urine culture and sensitivity. Place empirically on Zosyn IV. Continue tamsulosin 0.4 mg every evening and finasteride 5 mg p.o. daily in the evening Consult his urologist Dr. Farrell. Present on Admission?: Yes (2) UTI (urinary tract infection): See above Present on Admission?: Yes (3) Atrial fibrillation with RVR: Atrial fibrillation with RVR/permanent atrial fibrillation/hypertension/ischemic cardiomyopathy- Likely stimulated by the physiologic stress of UTI and recent BCG treatment. He has had improved rate control with IV fluids and administration of diltiazem 20 mg IV by the ED. Continue IV fluid rehydration. Continue aspirin 81 mg daily, verapamil 120 mg every morning and warfarin 5 mg p.o. daily. Present on Admission?: Yes (4) PAD (peripheral artery disease): Treatment for cardiac issues encompasses PAD issues as well Present on Admission?: Yes (5) Ischemic cardiomyopathy: See above Present on Admission?: Yes (6) HTN (hypertension): See above Present on Admission?: Yes (7) Dyslipidemia: Continue rosuvastatin 10 mg daily Present on Admission?: Yes (8) Depressive disorder: Continue Lexapro 5 mg p.o. at bedtime Present on Admission?: Yes History of Present Illness Chief Complaint: The patient presents to the emergency department with report that he had undergone BCG treatment for bladder cancer this morning, and unlike previous times, had significant gross hematuria throughout the remainder of the day. Primary Care Provider: Jonathan Phillips The patient is a 79-year-old male with a past medical history including recently diagnosed bladder cancer, atrial fibrillation with RVR, PAD, ischemic cardiomyopathy, AAA without rupture, permanent atrial fibrillation, mitral vegetation, hypertension, GERD, dyslipidemia, depression, cardiomyopathy, CAD in [place] artery and umbilical hernia. He reports that after he underwent BCG treatment for his bladder cancer this morning, he atypically developed gross hematuria that persisted as a day went on. He also developed a temperature later on the day which was somewhat improved with Tylenol. He did vomit earlier this evening, and has had some generalized achiness, fevers and chills. Allergies Allergy/AdvReac Type Severity Reaction Status Date / Time No Known Allergies Allergy Unverified 11/19/19 23:35 Home Medications Home Medications Medication Instructions Recorded Confirmed Type aspirin 81 mg PO QPM 06/23/18 11/19/19 History cholecalciferol (vitamin D3) 1,000 unit PO QAM 06/23/18 11/19/19 History [Vitamin D3] chromium picolinate 400 mcg PO QAM 06/23/18 11/19/19 History escitalopram oxalate 5 mg PO HS 06/23/18 11/19/19 History finasteride 5 mg PO QPM 06/23/18 11/19/19 History glucosamine-chondroitin 1 cap PO QPM 06/23/18 11/19/19 History latanoprost 1 drp OPB PM 06/23/18 11/19/19 History lecithin 1,200 mg PO QPM 06/23/18 11/19/19 History multivitamin 1 tab PO QAM 06/23/18 11/19/19 History tamsulosin 0.4 mg PO QPM 11/06/18 11/19/19 History hydroxyzine HCl 25 mg PO HS 04/06/19 11/19/19 History triamcinolone acetonide 1 applic TOPICAL UD PRN 04/06/19 11/19/19 History rosuvastatin 10 mg tablet 10 mg PO QAM #90 tab 07/17/19 11/19/19 Rx verapamil 120 mg tablet 120 mg PO QAM #90 tab 07/17/19 11/19/19 Rx warfarin 5 mg tablet 5 mg PO DAILY #90 tab 11/16/19 11/19/19 Rx vitamin B complex 1 tab PO DAILY 11/19/19 11/19/19 History Past Med/Surg History Medical History AAA (abdominal aortic aneurysm) (Resolved) HX OF (REPAIRED 10/2018) AAA (abdominal aortic aneurysm) without rupture Atrial fibrillation DX 2011/NO HX CARDIOVERSION Bilateral inguinal hernia BPH (benign prostatic hyperplasia) CAD in [place] artery Cardiomyopathy Cardiomyopathy Depression Depressive disorder Dizziness Dyslipidemia GERD (gastroesophageal reflux disease) CONTROLLED GERD (gastroesophageal reflux disease) Glaucoma Headache Hearing deficit HTN (hypertension) Hyperlipidemia Hypertension Ischemic cardiomyopathy Mitral regurgitation Osteoarthritis PAD (peripheral artery disease) Permanent atrial fibrillation Skin abnormality LIGHT TREATMENTS FOR 2X PER WEEK Tremor HANDS; SUSPECTED BENIGN/ESSENTIAL Tremor Umbilical hernia Umbilical hernia Surgical History H/O left inguinal hernia repair H/O right inguinal hernia repair 01/25/19: MAC #3, ETT #7.5, HiLo Oral, Grade 2 View History of cataract surgery B/L History of colonoscopy History of endovascular stent graft for abdominal aortic aneurysm (10/2018) History of nasal surgery History of repair of aneurysm of abdominal aorta 11/14/[address] DOWNEY, STENT IN [place] MAC #3, ETT #7.5, HiLo Oral, Grade 1 View History of shoulder surgery B/L Social History Preferred Language: Hungarian Communication Ability: Effective Accountant Budget Required: No Beliefs That Will Affect Care: None Current Living Situation: Spouse Feels Safe at Home: Yes Smoking Status: Former smoker Smoking End Date: 1999 ; Second Hand Exposure: No ; Hx Alcohol Use: No Hx Substance Use: No Review of Systems Review of Systems: The patient denies chest pain, palpitations, shortness of breath, dyspnea on exertion, cough, lower extremity swelling, sore throat, diarrhea , constipation, abdominal pain, pelvic pain, blood in urine or stool, dysuria, urinary frequency or urgency, lightheadedness, dizziness, headache, memory loss, loss of consciousness, imbalance, focal weakness, numbness or tingling in arms or legs, or night sweats. The review of systems is otherwise negative other than for that already noted above, and at least 10 systems have been reviewed. Physical Exam Physical Exam: The patient is awake, alert and oriented 3, normocephalic and atraumatic, lying in bed and in no acute distress. HEENT--PERRL, EOMI, mucous membranes and oropharynx dry. Neck--supple. No JVD. No bruits. Thyroid normal, trachea midline, no adenopathy. Heart--normal S1 and S2. No murmurs, rubs or gallops. Lungs--clear bilaterally, no respiratory distress, no accessory muscle use. Abdomen--normal bowel sounds and soft. Nontender. Nondistended, no hernias or masses, no organomegaly. Extremities--no cyanosis or clubbing. No edema. There are good distal pulses b/l. Dermatologic--normal skin turgor, normal color, no abnormal lymph nodes, no rash. Neurologic--cranial nerves II through XII grossly intact. Rheumatologic--normal range of motion. Psychiatric--normal affect. Results & Data Vital Signs (Past 12 Hours) Vital Signs Temp Pulse Pulse Resp BP BP Pulse Ox 11/20/19 03:41 100 H 11/20/19 03:30 98.6 F 112 H 18 158/70 H 95 11/20/19 02:45 97 H 21 120/59 L 98 11/20/19 02:30 92 H 21 122/70 97 11/20/19 02:15 88 21 116/89 96 11/20/19 02:00 98 H 22 117/64 96 11/20/19 01:00 91 H 21 110/62 96 11/20/19 00:45 91 H 24 107/60 96 11/20/19 00:30 93 H 21 124/73 96 11/20/19 00:24 94 H 22 99/56 L 95 11/20/19 00:22 101 H 20 105/65 95 11/20/19 00:20 108 H 19 104/60 96 11/20/19 00:18 125 H 21 107/62 96 11/20/19 00:16 125 H 19 118/63 96 11/20/19 00:15 125 H 19 108/85 96 11/20/19 00:00 129 H 20 108/66 97 11/19/19 23:09 138 H 22 132/62 97 11/19/19 22:45 135 H 22 124/88 96 11/19/19 22:30 144 H 22 117/69 94 11/19/19 22:15 130 H 23 127/67 94 11/19/19 22:00 122 H 20 134/69 95 11/19/19 21:45 128 H 23 144/72 H 95 11/19/19 21:20 89 L 11/19/19 21:16 163 H 25 H 94 11/19/19 21:15 139 H 24 118/91 94 11/19/19 21:00 138 H 23 151/87 H 11/19/19 20:52 98 11/19/19 20:16 99.3 F 152 H 20 91 Laboratory Results Laboratory Results WBC 12.53 K/uL (4.8-10.8) H 11/19/19 20:30 RBC 4.08 M/uL (4.7-6.1) L 11/19/19 20:30 Hgb 13.9 g/dL (14.0-18.0) L 11/19/19 20:30 Hct 41.2 % (42-52) L 11/19/19 20:30 MCV 101.0 fL (80-100) H 11/19/19 20:30 MCH 34.1 pg (25-34) H 11/19/19 20: MCHC 33.7 g/dL (32-36) 11/19/19 20: RDW Std Deviation 54.9 fL (36.4-46.3) H 11/19/19 20: RDW Coeff of Vera 15.0 % (11.5-14.5) H 11/19/19 20: Plt Count 198 K/uL (130-400) 11/19/19 20: MPV 10.2 fL (7.4-10.4) 11/19/19 20:30 Immature Gran % (Auto) 0.6 % 11/19/19 20:30 Neut % (Auto) 87.7 % 11/19/19 20:30 Lymph % (Auto) 4.3 % 11/19/19 20:30 Christian % (Auto) 6.9 % 11/19/19 20:30 Eos % (Auto) 0.4 % 11/19/19 20:30 Baso % (Auto) 0.1 % 11/19/19 20:30 Immature Gran # (Auto) 0.08 K/uL (0.00-0.02) H 11/19/19 20:30 Neut # (Auto) 10.99 K/uL (1.4-6.5) H 11/19/19 20:30 Lymph # (Auto) 0.54 K/uL (1.2-3.4) L 11/19/19 20:30 Christian # (Auto) 0.86 K/uL (0.11-0.59) H 11/19/19 20:30 Eos # (Auto) 0.05 K/uL (0-0.5) 11/19/19 20:30 Baso # (Auto) 0.01 K/uL (0-0.2) 11/19/19 20:30 Polychromasia 1+ 03/02/20 20:30 Anisocytosis Present 11/19/19 20:30 PT 27.7 Seconds (9.0-12.0) H 11/19/19 21:34 INR 2.9 (0.9-1.1) H 11/19/19 21:34 APTT 36.9 Seconds (21.0-31.0) H 11/19/19 21:34 PTT Ratio 1.4 11/19/19 21:34 Sodium 137 mmol/L (136-145) 11/19/19 20:30 Potassium 3.8 mmol/L (3.5-5.1) 11/19/19 20:30 Chloride 104 mmol/L (98-107) 11/19/19 20:30 Carbon Dioxide 27 mmol/L (21-32) 11/19/19 20:30 Anion Gap 6.0 (3-11) 11/19/19 20:30 BUN 22 mg/dl (7-18) H 11/19/19 20:30 Creatinine 1.45 mg/dl (0.6-1.4) H 11/19/19 20:30 Est Cr Clr Drug Dosing 45.8 ml/min 11/19/19 20:30 Est GFR ( Amer) 52.3 11/19/19 20:30 Est GFR (Non-Af Amer) 45.2 11/19/19 20:30 BUN/Creatinine Ratio 15.2 (10-20) 11/19/19 20:30 Glucose 134 mg/dl (70-99) H 11/19/19 20:30 Lactate 1.8 mmol/L (0.4-2.0) 11/19/19 21:13 Calcium 9.0 mg/dl (8.5-10.1) 11/19/19 20:30 Magnesium 1.6 mg/dl (1.8-2.4) L 11/19/19 20:30 Total Bilirubin 1.5 mg/dl (0.2-1) H 11/19/19 20:30 AST 29 U/L (15-37) 11/19/19 20:30 ALT 24 U/L (12-78) 11/19/19 20:30 Alkaline Phosphatase 52 U/L (45-117) 11/19/19 20:30 Troponin I < 0.015 ng/ml (0-0.045) 11/19/19 20: Total Protein 7.7 gm/dl (6.4-8.2) 11/19/19 20: Albumin 3.7 gm/dl (3.4-5.0) 11/19/19 20: Globulin 4.0 gm/dl (2.5-4.0) 11/19/19 20: Albumin/Globulin Ratio 0.9 (0.9-2) 11/19/19 20: Procalcitonin 0.46 ng/ml (0-0.5) 11/19/19 20:30 Urine Color Yellow 11/19/19 23: Urine Appearance Cloudy (Clear) A 11/19/19 23: Urine pH 6.0 (4.5-7.5) 11/19/19 23: Ur Specific [place] 1.032 (1.000-1.030) H 11/19/19 23: Urine Protein Trace (Negative) H 11/19/19 23: Urine Glucose (UA) Negative (Negative) 11/19/19 23: Urine Ketones Negative (Negative) 11/19/19 23: Urine Blood 3+ (Negative) H 11/19/19 23: Urine Nitrite Negative (Negative) 11/19/19 23: Urine Bilirubin Negative (Negative) 11/19/19 23: Urine Urobilinogen Negative (Negative) 11/19/19 23:29 Ur Leukocyte Esterase 2+ (Negative) H 11/19/19 23:29 Urine WBC (Auto) >30 /hpf (0-5) H 11/19/19 23: Urine RBC (Auto) >30 /hpf (0-4) H 11/19/19 23: U Hyaline Cast (Auto) 0 /lpf (0-5) 11/19/19 23: U Epithel Cells (Auto) 0-5 /lpf (0-5) 11/19/19 23: Urine Bacteria (Auto) Negative (Negative) 11/19/19 23:29 Influenza Type A (PCR) Neg for Influ A (Neg) 11/19/19 21:14 Influenza Type B (PCR) Neg for Influ B (Neg) 11/19/19 21:14 Diagnostic Findings [facility] [place] [phone] XRay Report Patient: WILFREDO SNYDER LAdmit Date: 11/19/19 MR#: [id number]: [address] Acct ID:[id number]: Date: 1940City Zip: [place] [address] Age: 79Location: ED Sex: M Room/Bed: Att Phy:Diagnosis: FLU LIKE SYMPTOMS Glory Phy: Jonathan Phillips, DOService Date: 11/19/19 Fam Phy:Interpreting Phy: Sabino Mccormick MD Admit Phy: Ordering Phy: Jeremiah Ortiz, cc: ~ XR chest 1V portable CLINICAL HISTORY: SEPSIS COMPARISON STUDY: Chest radiograph June 07, 2019. FINDINGS: Lung volumes are normal. Lungs are clear. There is no pneumothorax or pleural effusion. Mild cardiomegaly is unchanged. Mediastinal contours are normal. There is no evidence for pulmonary edema. IMPRESSION: No acute cardiopulmonary findings. No change in appearance of the chest. ACT 112: Negative or not required by law. Electronically signed by: Sabino Mccormick M.D. 11/19/2019 9:37 PM Dictated: 11/19/192135 Transcribed: 11/19/192135 [facility] Patient: WILFREDO SNYDER (Male) : 38 Status: ER Date: 11/19/19 23:09 Room #: History: CHEST PAIN WITH HEART FLUTTER, R/O PE Slices: [phone] Priors: Tech: Brooks Lowry @ [phone] Exams: CTA CHEST Contrast: IV Amt: 112 ML OPTIRAY 320 Accession Numbers: [id number] Preliminary Findings Only See Final Report For Complete Findings CTA CHEST: No pulmonary embolism or acute aortic syndrome. No consolidation, interstitial edema, pleural effusion, or pneumothorax. Mild dependent atelectasis in the lower lobes. Coronary artery calcifications. Radiologist: Yo Henson MD Study ready at 23:18 and initial results transmitted at 23:44 *This report constitutes a preliminary interpretation only. Non-acute findings felt to be unrelated to the clinical presentation may not be discussed in this report. The study will be interpreted and a final report will be generated by the local Radiologist the following shift. To reach the hospital radiology department call [phone]. If a discrepancy is found between the preliminary and final interpretations of this study, please notify us via our Client Portal at [email or web address], under QA Exams.You can also fax this report with a description of the discrepancy, or include the final report, to our daytime fax number [phone].If faxing, please indicate the severity of discrepancy using one of the following categories: [ ] 1 - Agree/Informational [ ] 2 - Unlikely to Affect Management [ ] 3 - Possible Eventual Change of Management [ ] 4 - Probable Immediate Change of Management For all other patient related information, please fax us at [phone]. [id number] Code Status & VTE Plan Code Status Full code VTE Prophylaxis Plan VTE Prophylaxis will be ordered: Yes PG Care Time/CCT Total # of Minutes Spent Total Time Spent with Patient: Total time spent is greater than 50% in coordination of care (as documented) at patient's floor/unit and/or counseling patient: Coding Level of Care Code 32335 Initial Inpt Care Lvl 3 Diagnoses Malignant neoplasm of bladder C67.9 UTI (urinary tract infection) N39.0; R31.9 Hematuria presence: with hematuria Urinary tract infection type: site unspecified Atrial fibrillation with RVR I48.91 PAD (peripheral artery disease) I73.9 Ischemic cardiomyopathy I25.5 HTN (hypertension) I10 Dyslipidemia E78.5 Depressive disorder F32.9 (1) UTI (urinary tract infection) Hematuria presence: with hematuria Urinary tract infection type: site unspecified Qualified Code(s): N39.0 - Urinary tract infection, site not specified; R31.9 - Hematuria, unspecified
--- NOTE | 2019-11-20 07:54 | CT Scan Report ---
CT angio chest PE protocol CLINICAL HISTORY: 79 years-old Male presenting with atypical chest pain, heart flutter, palpitations. TECHNIQUE: Multidetector CT angiography of the chest was performed after administration of intravenou s contrast. 3-D volumetric and/or maximum intensity projection (MIP) images were subsequently reconst ructed for review. IV contrast: 112 mL of Optiray 320. One or more dose lowering techniques were used consistent with the principles of ALARA (as low as reasonably achievable), including automatic expos ure control, mA or kV adjustment to individual patient size, and/or use of iterative reconstruction. COMPARISON: Contrast-enhanced chest CT from 2010. CT DOSE (mGy.cm): The estimated cumulative dose is 624.58 mGy.cm. FINDINGS: Instrumental Musician topogram: Unremarkable. Pulmonary vasculature: The study is adequate for assessment of the pulmonary vascular tree. No filling defect within the pul monary arteries to suggest embolus. Main pulmonary artery is not enlarged. No flattening of the inter ventricular septum. No intracardiac filling defect. No reflux of contrast into the hepatic veins. Remaining chest: Soft tissues: Normal thyroid and thoracic inlet. Scattered subcentimeter mediastinal and bilateral hi lar lymph nodes, nonspecific and likely reactive. Atherosclerosis of the aorta. Normal heart size. Co ronary artery and aortic valve calcification. No pericardial or pleural effusion. Mildly distended es ophagus containing fluid and gas. Nodular thickening of the left adrenal gland with calcification as on prior exam possibly related to prior granulomatous disease. Lungs and airways: No pneumothorax. Minimal layering secretions in the lower trachea near the dana. Pulmonary arteries are not significantly enlarged relative to adjacent bronchi. No interlobular sept al thickening. Trace apical predominant paraseptal emphysema. Few bandlike opacities at the lung base s likely atelectasis. Musculoskeletal: Several old rib fractures are suggested. IMPRESSION: 1. No evidence of pulmonary embolus. 2. Minimal bibasilar atelectasis and minimal secretions in the lower trachea. Otherwise no acute int rathoracic pathology. ACT 112: Negative or not required by law. Electronically signed by: Abel Valentin M.D. 11/20/2019 7:53 AM
[2019-11-20] MEDS: MULTIVITAMIN TAB PO SCH (07:55)
[2019-11-20] MEDS: VERAPAMIL HCL 120 MG TABCR PO SCH (07:55)
[2019-11-20] MEDS: CHOLECALCIFEROL 1,000 UNITS 25 MCG TAB PO SCH (07:55)
[2019-11-20] MEDS: ROSUVASTATIN CALCIUM 10 MG TAB PO SCH (07:56)
[2019-11-20] MEDS: VITAMIN B COMPLEX TAB PO SCH (07:56)
[2019-11-20] MEDS ORDERED: CHROMIUM PICOLINATE 400 MCG PO SCH (09:00)
--- NOTE | 2019-11-20 09:00 | Urology Consultation ---
Date of Consultation November 20, 2019 Assessment & Plan (1) UTI (urinary tract infection): 79 yo M with multiple comorbidities admitted for atrial fibrillation with RVR and suspected UTI. - Case reviewed with Dr. Farrell - Patient feeling improved today - Continue supportive care - UC&S pending - Continue broad spectrum abx, follow sensitivities - Recommend repeat labs today, trend - Check PVR, order placed - Will continue to follow Temperature documented in chart this AM was 39.3 C. Personally rechecked temperature during time of exam at 0830, T 36.8 C. Discussed with RN on duty. Discussed repeating another temperature and documenting in chart. History of Present Illness Attending Physician: Codey Voss MD History of Present Illness 79 yo M with PMHx of atrial fibrillation on anticoagulation, PAD, hypertension, AAA, CAD, cardiomyopathy, dyslipidemia and bladder cancer admitted for atrial fibrillation with RVR and suspected UTI. New consultation for gross hematuria, suspected UTI s/p BCG. Pt is known to our service, following with Dr. Farrell for high-grade TA multifocal bladder cancer. Admitted via [facility] ED on 11/19/19. Presented with flu-like symptoms and hematuria after having BCG treatment earlier in the day. Per patient report, he began having chills in the afternoon. His took his temperature and it was 98.9 F. He reports dark red urine after BCG treatment and then developed nausea and emesis x 1. In ED, he was treated with IV fluids and IV Zosyn for suspected UTI as well as Cardizem for Afib with RVR. Admitted for further evaluation and treatment. Chart review: Creatinine (3/2) - 1.45 WBC (3/2) - 12.53 Hgb (3/2) - 13.9 UA - 3+ blood, 2+ Leuks, >30 WBC, >30 RBC, negative nitrites and bacteria UC&S - pending BCx - pending Flu negative On IV Zosyn Imaging - CXR, CTA Patient examined this morning. Awake and sitting up in bed, just finished breakfast. at bedside. No issues overnight. States he is feeling better today. States he feels warm, but no fever or chills. No nausea or vomiting. No abdominal, suprapubic or flank pain. Reports that urine is clear yellow today. Denies hematuria or dysuria. Reports frequency yesterday, but now resolved. Of note, temperature documented in chart this morning was 39.3 C. Patient had recently finished breakfast. Temperature was rechecked at bedside this AM during exam and was 36.8 C. Discussed findings with RN. Allergies Allergy/AdvReac Type Severity Reaction Status Date / Time No Known Allergies Allergy Unverified 11/19/19 23:35 Home Medications Home Medications Medication Instructions Recorded Confirmed Type aspirin 81 mg PO QPM 06/23/18 11/19/19 History cholecalciferol (vitamin D3) 1,000 unit PO QAM 06/23/18 11/19/19 History [Vitamin D3] chromium picolinate 400 mcg PO QAM 06/23/18 11/19/19 History escitalopram oxalate 5 mg PO HS 06/23/18 11/19/19 History finasteride 5 mg PO QPM 06/23/18 11/19/19 History glucosamine-chondroitin 1 cap PO QPM 06/23/18 11/19/19 History latanoprost 1 drp OPB PM 06/23/18 11/19/19 History lecithin 1,200 mg PO QPM 06/23/18 11/19/19 History multivitamin 1 tab PO QAM 06/23/18 11/19/19 History tamsulosin 0.4 mg PO QPM 11/06/18 11/19/19 History hydroxyzine HCl 25 mg PO HS 04/06/19 11/19/19 History triamcinolone acetonide 1 applic TOPICAL UD PRN 04/06/19 11/19/19 History rosuvastatin 10 mg tablet 10 mg PO QAM #90 tab 07/17/19 11/19/19 Rx verapamil 120 mg tablet 120 mg PO QAM #90 tab 07/17/19 11/19/19 Rx warfarin 5 mg tablet 5 mg PO DAILY #90 tab 11/16/19 11/19/19 Rx vitamin B complex 1 tab PO DAILY 11/19/19 11/19/19 History Patient History Medical History AAA (abdominal aortic aneurysm) (Resolved) HX OF (REPAIRED 10/2018) AAA (abdominal aortic aneurysm) without rupture Atrial fibrillation DX 2011/NO HX CARDIOVERSION Bilateral inguinal hernia BPH (benign prostatic hyperplasia) CAD in [place] artery Cardiomyopathy Cardiomyopathy Depression Depressive disorder Dizziness Dyslipidemia GERD (gastroesophageal reflux disease) CONTROLLED GERD (gastroesophageal reflux disease) Glaucoma Headache Hearing deficit HTN (hypertension) Hyperlipidemia Hypertension Ischemic cardiomyopathy Mitral regurgitation Osteoarthritis PAD (peripheral artery disease) Permanent atrial fibrillation Skin abnormality LIGHT TREATMENTS FOR 2X PER WEEK Tremor HANDS; SUSPECTED BENIGN/ESSENTIAL Tremor Umbilical hernia Umbilical hernia Surgical History H/O left inguinal hernia repair H/O right inguinal hernia repair 01/25/19: MAC #3, ETT #7.5, HiLo Oral, Grade 2 View History of cataract surgery B/L History of colonoscopy History of endovascular stent graft for abdominal aortic aneurysm (10/2018) History of nasal surgery History of repair of aneurysm of abdominal aorta 11/14/[address] DOWNEY, STENT IN [place]A MAC #3, ETT #7.5, HiLo Oral, Grade 1 View History of shoulder surgery B/L Social History Preferred Language: Syriac Communication Ability: Effective Rim Turning Finisher Required: No Beliefs That Will Affect Care: None Current Living Situation: Spouse Feels Safe at Home: Yes Smoking Status: Former smoker Smoking End Date: 1999 ; Second Hand Exposure: No ; Hx Alcohol Use: No Hx Substance Use: No Review of Systems Constitutional: as per Subjective / HPI Gastrointestinal: as per Subjective / HPI Genitourinary: + as per Subjective / HPI Physical Exam Constitutional: well developed and well nourished; no acute distress and not ill appearing Respiratory: able to speak in complete sentences; no respiratory distress and no labored breathing Cardiovascular: Extremities: no pedal edema Gastrointestinal (Abdomen): Inspection/Auscultation: abdomen normal to inspection; abdomen not distended Percussion/Palpation: abdomen soft; abdomen nontender and no guarding Neurologic: moves all extremities and awake Psychiatric: A+Ox3, euthymic affect Genitourinary: no CVA tenderness Voiding spontaneously, urine not visualized during exam. Results & Data Vital Signs (Past 12 Hours) Vital Signs Temp Pulse Pulse Resp BP BP Pulse Ox 11/20/19 07:56 39.3 C H 102 H 18 144/82 H 95 11/20/19 03:41 100 H 11/20/19 03:30 37.0 C 112 H 18 158/70 H 95 11/20/19 02:45 97 H 21 120/59 L 98 11/20/19 02:30 92 H 21 122/70 97 11/20/19 02:15 88 21 116/89 96 11/20/19 02:00 98 H 22 117/64 96 11/20/19 01:00 91 H 21 110/62 96 11/20/19 00:45 91 H 24 107/60 96 11/20/19 00:30 93 H 21 124/73 96 11/20/19 00:24 94 H 22 99/56 L 95 11/20/19 00:22 101 H 20 105/65 95 11/20/19 00:20 108 H 19 104/60 96 11/20/19 00:18 125 H 21 107/62 96 11/20/19 00:16 125 H 19 118/63 96 11/20/19 00:15 125 H 19 108/85 96 11/20/19 00:00 129 H 20 108/66 97 11/19/19 23:09 138 H 22 132/62 97 11/19/19 22:45 135 H 22 124/88 96 11/19/19 22:30 144 H 22 117/69 94 11/19/19 22:15 130 H 23 127/67 94 11/19/19 22:00 122 H 20 134/69 95 11/19/19 21:45 128 H 23 144/72 H 95 11/19/19 21:20 89 L 11/19/19 21:16 163 H 25 H 94 11/19/19 21:15 139 H 24 118/91 94 PG Care Time/CCT Total # of Minutes Spent Total Time Spent with Patient: Total time spent is greater than 50% in coordination of care (as documented) at patient's floor/unit and/or counseling patient: Coding Level of Care Code 68627 Inpt Consult Level 3 Diagnoses UTI (urinary tract infection) N39.0; R31.9 Hematuria presence: with hematuria Urinary tract infection type: site unspecified (1) UTI (urinary tract infection) Hematuria presence: with hematuria Urinary tract infection type: site unspecified Qualified Code(s): N39.0 - Urinary tract infection, site not specified; R31.9 - Hematuria, unspecified
--- NOTE | 2019-11-20 10:41 | Electrocardiogram Report ---
Test Reason : Blood Pressure : / mmHG Vent. Rate : 150 BPM Atrial Rate : 141 BPM P-R Int : 000 ms QRS Dur : 076 ms QT Int : 296 ms P-R-T Axes : 000 065 054 degrees QTc Int : 467 ms Atrial fibrillation with rapid ventricular response Nonspecific ST abnormality Abnormal ECG When compared with ECG of 08-NOV-2018 11:58, Vent. rate has increased BY [address] now depressed in Anterolateral leads T wave amplitude has decreased in Lateral leads Confirmed by Jeremiah Juares ([id number]) on 11/20/2019 10:41:01 AM Referred By: REFERRED SELF Confirmed By:Jeremiah Juares
[2019-11-20 13:53] LABS: Basophils # (auto) 0.01 K/uL (0-0.2); Basophils % (auto) 0.1 %; Hematocrit (blood only) 36.9 % (42-52); Immature Granulocytes # (auto) 0.03 K/uL (0.00-0.02); Immature Granulocytes % (auto) 0.4 %; Lymphocytes # (auto) 0.63 K/uL (1.2-3.4); Lymphocytes % (auto) 8.2 %; Mean Corpuscular Hemoglobin 33.4 pg (25-34); Mean Corpuscular Hgb Conc 32.5 g/dL (32-36); Mean Corpuscular Volume 102.8 fL (80-100); Mean Platelet Volume 9.8 fL (7.4-10.4); Monocytes # (auto) 0.65 K/uL (0.11-0.59); Monocytes % (auto) 8.4 %; Neutrophils % (auto) 82.9 %; Platelet Count 173 K/uL (130-400); RDW Coefficient of Variation 15.5 % (11.5-14.5); RDW Standard Deviation 57.3 fL (36.4-46.3); Red Blood Count 3.59 M/uL (4.7-6.1); White Blood Count 7.72 K/uL (4.8-10.8)
[2019-11-20 14:13] LABS: BUN Creatinine Ratio 12.8 (10-20); Calcium 8.2 mg/dl (8.5-10.1); Creatinine Clr Calc Pharmacy 40.4 ml/min; Est GFR (African American) 44.8; Est GFR (Non-African American) 38.6
[2019-11-20] MEDS: WARFARIN SOD 5 MG TAB PO SCH (15:41)
[2019-11-20] MEDS ORDERED: NON-FORMULARY MEDICATION (Lecithin 1,200 MG) PO SCH (21:00)
[2019-11-20] MEDS ORDERED: ESCITALOPRAM OXALATE 10 MG TAB PO SCH (21:00)
[2019-11-20] MEDS ORDERED: TAMSULOSIN HCL 0.4 MG CAP PO SCH (21:00)
[2019-11-20] MEDS ORDERED: NON-FORMULARY MEDICATION (Glucosamine-Chondroitin 1 CAP) PO SCH (21:00)
[2019-11-20] MEDS ORDERED: FINASTERIDE 5 MG TAB PO SCH (21:00)
[2019-11-20] MEDS ORDERED: LATANOPROST 0.005% OP SOLN 2.5 ML BTL OPB SCH (21:00)
[2019-11-20] MEDS ORDERED: ASPIRIN 81 MG ECTAB PO SCH (21:00)
--- NOTE | 2019-11-20 21:03 | Communication Note ---
Date of Service: November 20, 2019 Patient was seen and examined but admitted same day therefore I will not be billing for this encounter. Patient much improved since admission. Appreciate urology recommendations. PVR was 34ml. Urine/blood culture pending Rpt Mg with AM labs (2g IV Mg sulphate given in ER) Mild increase in Cr and given cardiac Hx and a. fib I am more concerned about patient becoming hypervolemic rather than this being pre-renal since BUN stable. IV fluids discontinued with good oral intake. Will continue to trend BMP. Ok to transfer patient to med/tele. Otherwise no change in plan from H&P.
[2019-11-21] MEDS: PIPERACILLIN/TAZOBACTAM 3.375 GM in DEXTROSE 5% 100 ML IV SCH ×2 (05:27→13:46)
[2019-11-21 06:55] LABS: Eosinophils # (auto) 0.03 K/uL (0-0.5); Eosinophils % (auto) 0.6 %; Hematocrit (blood only) 38.4 % (42-52); Hemoglobin 12.6 g/dL (14.0-18.0); Immature Granulocytes # (auto) 0.03 K/uL (0.00-0.02); Immature Granulocytes % (auto) 0.6 %; Lymphocytes # (auto) 0.59 K/uL (1.2-3.4); Lymphocytes % (auto) 11.3 %; Mean Corpuscular Hemoglobin 33.8 pg (25-34); Mean Corpuscular Hgb Conc 32.8 g/dL (32-36); Mean Corpuscular Volume 102.9 fL (80-100); Mean Platelet Volume 10.4 fL (7.4-10.4); Monocytes # (auto) 0.96 K/uL (0.11-0.59); Monocytes % (auto) 18.4 %; Neutrophils # (auto) 3.61 K/uL (1.4-6.5); Neutrophils % (auto) 69.1 %; Platelet Count 164 K/uL (130-400); RDW Coefficient of Variation 15.7 % (11.5-14.5); RDW Standard Deviation 59.3 fL (36.4-46.3); Red Blood Count 3.73 M/uL (4.7-6.1); White Blood Count 5.22 K/uL (4.8-10.8)
[2019-11-21 07:04] LABS: INR 1.9 (0.9-1.1); Prothrombin Time 18.8 Seconds (9.0-12.0)
[2019-11-21 07:29] LABS: BUN Creatinine Ratio 15.5 (10-20); Calcium 8.3 mg/dl (8.5-10.1); Creatinine Clr Calc Pharmacy 45.8 ml/min; Est GFR (African American) 52.3; Est GFR (Non-African American) 45.2; Magnesium 2.1 mg/dl (1.8-2.4); Potassium 3.9 mmol/L (3.5-5.1)
[2019-11-21] MEDS: VITAMIN B COMPLEX TAB PO SCH (08:30)
[2019-11-21] MEDS: MULTIVITAMIN TAB PO SCH (08:30)
[2019-11-21] MEDS: VERAPAMIL HCL 120 MG TABCR PO SCH (08:30)
[2019-11-21] MEDS: ROSUVASTATIN CALCIUM 10 MG TAB PO SCH (08:30)
[2019-11-21] MEDS: CHOLECALCIFEROL 1,000 UNITS 25 MCG TAB PO SCH (09:41)
--- NOTE | 2019-11-21 10:12 | Urology Progress Note ---
Date of Service November 21, 2019 Assessment & Plan (1) Malignant neoplasm of bladder: (2) UTI (urinary tract infection): 79 yo M with multiple comorbidities admitted for atrial fibrillation with RVR and suspected UTI. - Creatinine improved today, continue to monitor/trend - Continue supportive care - BCx no growth x 24 hours - UC&S pending - Continue broad spectrum abx, follow sensitivities - PVR yesterday was 34 mL - encouraging - Will continue to follow Subjective Awake, sitting up in bed. at bedside. Reports he continues to feel better. No issues overnight. No f/c/n/v. No abdominal, suprapubic or flank pain. Voiding spontaneously. No dysuria or hematuria. Lab work reviewed. Creatinine 1.45 today, WBC 5.22, Hgb 12.6. UC&S pending. BCx no growth x 24 hours. Review of Systems Constitutional: as per Subjective / HPI Gastrointestinal: as per Subjective / HPI Genitourinary: + as per Subjective / HPI Physical Exam Constitutional: well developed, well nourished and comfortable; no acute distress Respiratory: normal respiratory effort and able to speak in complete sentences; no respiratory distress and no labored breathing Cardiovascular: Extremities: no pedal edema Gastrointestinal (Abdomen): Inspection/Auscultation: abdomen normal to inspection; abdomen not distended Percussion/Palpation: abdomen soft; abdomen nontender and no guarding Neurologic: moves all extremities and awake Psychiatric: A+Ox3, euthymic affect Genitourinary: no CVA tenderness Voiding spontaneously, urine not visualized during exam Results & Data Vital Signs (Past 12 Hours) Vital Signs Temp Pulse Pulse Resp BP Pulse Ox 11/21/19 07:00 36.5 C 96 H 18 115/72 94 11/21/19 04:00 36.6 C 85 20 108/87 99 11/20/19 22:42 36.6 C 69 20 125/74 97 11/20/19 22:19 88 PG Care Time/CCT Total # of Minutes Spent Total Time Spent with Patient: Total time spent is greater than 50% in coordination of care (as documented) at patient's floor/unit and/or counseling patient: Coding Level of Care Code 68160 Subseq Hosp Care Lvl 2 Diagnoses Malignant neoplasm of bladder C67.9 UTI (urinary tract infection) N39.0; R31.9 Hematuria presence: with hematuria Urinary tract infection type: site unspecified (1) UTI (urinary tract infection) Hematuria presence: with hematuria Urinary tract infection type: site unspecified Qualified Code(s): N39.0 - Urinary tract infection, site not specif ied; R31.9 - Hematuria, unspecified
[2019-11-21] MEDS: WARFARIN SOD 5 MG TAB PO SCH (15:36)
--- NOTE | 2019-11-21 16:01 | Electrocardiogram Report ---
Test Reason : Blood Pressure : / mmHG Vent. Rate : 097 BPM Atrial Rate : 000 BPM P-R Int : 000 ms QRS Dur : 084 ms QT Int : 356 ms P-R-T Axes : 000 137 119 degrees QTc Int : 452 ms Atrial fibrillation Right axis deviation Abnormal ECG When compared with ECG of 19-NOV-2019 20:38, Vent. rate has decreased BY 53 BPM QRS axis Shifted right ST no longer depressed in Anterior leads Nonspecific T wave abnormality now evident in Lateral leads Confirmed by Jeremiah Juares ([id number]) on 11/21/2019 4:00:34 PM Referred By: REFERRED SELF Confirmed By:Jeremiah Juares
--- NOTE | 2019-11-21 17:14 | Discharge Summary ---
Date of Service November 21, 2019 Admission HPI Per Admitting Provider The patient is a 79-year-old male with a past medical history including recently diagnosed bladder cancer, atrial fibrillation with RVR, PAD, ischemic cardiomyopathy, AAA without rupture, permanent atrial fibrillation, mitral vegetation, hypertension, GERD, dyslipidemia, depression, cardiomyopathy, CAD in [place] artery and umbilical hernia. He reports that after he underwent BCG treatment for his bladder cancer this morning, he atypically developed gross hematuria that persisted as a day went on. He also developed a temperature later on the day which was somewhat improved with Tylenol. He did vomit earlier this evening, and has had some generalized achiness, fevers and chills. Discharge Data Allergies Allergy/AdvReac Type Severity Reaction Status Date / Time No Known Allergies Allergy Unverified 11/19/19 23:35 Consultations 11/20/19 00:16 ED Decision to Admit Stat 11/20/19 03:51 Consult Case Management - Discharge Planning Routine Consult Urology Routine Ordered Studies 11/19/19 22:20 CT angio chest PE protocol Urgent Hospital Course (1) Malignant neoplasm of bladder: Patient underwent BCG treatment this morning, developed a uncharacteristically gross hematuria, followed by temperature, fevers and chills. Urinalysis looks abnormal, that symptoms are likely related to UTI. Follow urine culture and sensitivity. Place empirically on Zosyn IV. Continue tamsulosin 0.4 mg every evening and finasteride 5 mg p.o. daily in the evening Consult his urologist Dr. Farrell. (2) UTI (urinary tract infection): See above (3) Atrial fibrillation with RVR: Atrial fibrillation with RVR/permanent atrial fibrillation/hypertension /ischemic cardiomyopathy- Likely stimulated by the physiologic stress of UTI and recent BCG treatment. He has had improved rate control with IV fluids and administration of diltiazem 20 mg IV by the ED. Continue IV fluid rehydration. Continue aspirin 81 mg daily, verapamil 120 mg every morning and warfarin 5 mg p.o. daily. (4) PAD (peripheral artery disease): Treatment for cardiac issues encompasses PAD issues as well (5) Ischemic cardiomyopathy: See above (6) HTN (hypertension): See above (7) Dyslipidemia: Continue rosuvastatin 10 mg daily (8) Depressive disorder: Continue Lexapro 5 mg p.o. at bedtime Discharge Plan Discharge Items Patient Disposition: Home - Self-Care Reason For Visit: ATRIAL FIB W/ RVR, CYSTITIS S/P BCG TX Discharge Diagnosis: Acute urine tract infection after BCG treatment Atrial fibrillation with rapid ventricular rate Activity: Resume your previous activity Non-emergency contact: Primary Care Provider and Urologist Call non-emergency contact if: you have any medication questions, your symptoms worsen and your temperature is above 101 Follow-up/Referrals: Cedric Farrell DO [Physician] - (Follow up to be arranged by urology) Jonathan Phillips [Primary Care Provider] - (within 1 week of discharge) Diet: Heart Healthy Ambulatory Orders: Prothrombin Time INR (Routine) Timeframe: [id number] Location: Determined by Patient Ordered By: Codey Pinzon Attending Provider Instructions: You were admitted to [facility] from November 19 to 2019 due to gross hematuria and fever/chills. You were diagnosed with a urine tract infection after BCG treatment. This caused you to go into rapid atrial fibrillation with resolved with IV fluids and initially rate controlling medications, however was mainly an appropriate response to the infection; no cardiac medications were changed on discharge. Urine culture is still pending at the time of discharge. Given rapid improvement of intravenous antibiotics you will be switched to oral ciprofloxacin as prescribed below. This medication can enhance the effect of warfarin and increase your INR therefore recommend continuing on current dose but repeating your INR on Tuesday. Your INR is 1.9 on the day of discharge. If the urine culture grows a resistant organism you will be contacted to change the antibiotic coverage. Otherwise follow up with urology be arranged in due course. Kind regards, Dr Codey Voss Pending Studies at Discharge: Yes (urine culture pending) Stand-Alone Forms: My [facility], Smoking Cessation Medications and DC Order Prescriptions: New ciprofloxacin HCl 500 mg tablet 500 mg PO BID 7 Days Qty: 14 RF: 0 Continued warfarin 5 mg tablet 5 mg PO DAILY Qty: 90 RF: 3 verapamil 120 mg tablet 120 mg PO QAM Qty: 90 RF: 3 rosuvastatin 10 mg tablet 10 mg PO QAM Qty: 90 RF: 3 multivitamin Tablet 1 tab PO QAM RF: 0 latanoprost 0.005 % Drops 1 drp OPB PM RF: 0 lecithin 1,200 mg Capsule 1,200 mg PO QPM RF: 0 aspirin 81 mg Tablet,Delayed Release (Dr/Ec) 81 mg PO QPM RF: 0 glucosamine-chondroitin 500-400 mg Capsule 1 cap PO QPM RF: 0 finasteride 5 mg Tablet 5 mg PO QPM RF: 0 chromium picolinate 400 mcg Tablet 400 mcg PO QAM RF: 0 escitalopram oxalate 5 mg Tablet 5 mg PO HS RF: 0 cholecalciferol (vitamin D3) [Vitamin D3] 1,000 unit Tablet 1,000 unit PO QAM RF: 0 tamsulosin 0.4 mg Capsule 0.4 mg PO QPM RF: 0 hydroxyzine HCl 25 mg Tablet 25 mg PO HS RF: 0 triamcinolone acetonide 0.1 % Cream 1 applic TOPICAL UD PRN (Reason: Rash) RF: 0 vitamin B complex Tablet 1 tab PO DAILY RF: 0 Discharge Orders: Discharge Order (Routine); Ordered 11/21/19 Ordered By: Codey Voss Admission Data Admit Date/Time: 11/20/19 01:53 Attending Provider: Codey Voss Admit Provider: Jeff Reeves Primary Care Provider: Jonathan Phillips Other Providers: Jeff Reeves ; Cedric Farrell Coding Diagnoses Malignant neoplasm of bladder C67.9 UTI (urinary tract infection) N39.0; R31.9 Hematuria presence: with hematuria Urinary tract infection type: site unspecified Atrial fibrillation with RVR I48.91 PAD (peripheral artery disease) I73.9 Ischemic cardiomyopathy I25.5 HTN (hypertension) I10 Dyslipidemia E78.5 Depressive disorder F32.9
== END 2019-11-21 17:47 | disposition home or self-care (01) | DRG 690 ==
LOC: ED 19:59 → 2S 11-20 01:53 → SUATTDRO 11-20 01:53 → 2S 11-20 03:01 → 2N 11-20 14:27

== ENCOUNTER 2020-11-11 00:50 | Observation (INO) ==
[2020-11-11] MEDS ORDERED: CEFEPIME 2,000 MG/20 ML VIAL IV STA (01:23)
[2020-11-11] MEDS ORDERED: SODIUM CHLORIDE 0.9% 1000ML 1,000 ML IV SCH (01:30)
--- NOTE | 2020-11-11 01:38 | Emergency Department Note ---
History of Present Illness General Chief complaint: Illness Stated complaint: CHILLS,NAUSEA,FEVER,HIGH HR Time Seen by Provider: 11/11/20 00:58 Source: patient Mode of arrival: ambulatory Limitations: no limitations History of Present Illness Provider complaint: Shaking chills, fever, nausea Onset (ago): hour(s) Maximum Pain Intensity: 0 This is an 80-year-old male presents emergency department due to concern for chills, fevers, nausea and vomiting following BCG treatment earlier today. Patient states he has been getting BCG treatments over the course of the last 2 years for known bladder cancer. States his treatment today was at 1 PM. States he is familiar with how he feels following these and knows he needs to drink a lot of water and pee frequently to help flush the treatment out of his system. Patient states between 530 and 6 PM he began developing shaking chills. states she piled several blankets on him but he could not get warm. States af ter a while he began to get hot and she began checking his temperature. States his temperature was slowly going up throughout the evening and eventually reached 100.1. She states she took his pulse at that time and it was in the 100s also. She was not sure if this was from the fever of from his known atrial fibrillation. Patient does take Coumadin for his A. fib. Patient denies any abdominal pain, or back pain. Patient states on the car ride in once he arrived here he did have an episode of nausea and vomiting but now feels improved. Patient denies any current sense of fevers or chills. Patient states he has had some slight blood with urination since the treatment, but states this has happened before. Patient denies any recent URI symptoms, chest pain, trouble breathing. Patient denies any known sick contacts or exposure to coronavirus. Patient states he has previously had an episode of a urine infection and concern for sepsis following a treatment. He states this feels similar. Pt seen during a time of high acuity and national emergency pandemic while wearing PPE. Home Medications Medication Instructions Recorded Confirmed Type aspirin 81 mg PO QPM 06/23/18 11/11/20 History cholecalciferol (vitamin D3) 1,000 unit PO QAM 06/23/18 11/11/20 History [Vitamin D3] chromium picolinate 400 mcg PO QAM 06/23/18 11/11/20 History escitalopram oxalate 5 mg PO HS 06/23/18 11/11/20 History finasteride 5 mg PO QPM 06/23/18 11/11/20 History glucosamine-chondroitin 1 cap PO QPM 06/23/18 11/11/20 History latanoprost 1 drp OPB PM 06/23/18 11/11/20 History lecithin 1,200 mg PO QPM 06/23/18 11/11/20 History multivitamin 1 tab PO QAM 06/23/18 11/11/20 History tamsulosin 0.4 mg PO QPM 11/06/18 11/11/20 History hydroxyzine HCl 25 mg PO HS PRN 04/06/19 11/11/20 History triamcinolone acetonide 1 applic TOPICAL UD PRN 04/06/19 11/11/20 History vitamin B complex 1 tab PO QPM 11/19/19 11/11/20 History verapamil 120 mg tablet 120 mg PO QAM #90 tab 07/10/20 11/11/20 Rx rosuvastatin 10 mg tablet 10 mg PO QAM #90 tab 07/15/20 11/11/20 Rx warfarin 5 mg tablet 5 mg PO UD #90 tab 10/14/20 11/11/20 Rx Allergies Allergy/AdvReac Type Severity Reaction Status Date / Time No Known Allergies Allergy Unverified 11/10/20 12:53 Past Med/Surg History Medical History (Updated 11/11/20 @ 07:11 by Shirley Rouse DO) AAA (abdominal aortic aneurysm) (2018) Atrial fibrillation DX 2011/NO HX CARDIOVERSION Bilateral inguinal hernia BPH (benign prostatic hyperplasia) Depression Dyslipidemia Glaucoma Hearing deficit Ischemic cardiomyopathy EF=45% 2014 Osteoarthritis Skin abnormality LIGHT TREATMENTS FOR 2X PER WEEK Tremor HANDS; SUSPECTED BENIGN/ESSENTIAL Umbilical hernia Surgical History H/O left inguinal hernia repair H/O right inguinal hernia repair 01/25/19: MAC #3, ETT #7.5, HiLo Oral, Grade 2 View History of cataract surgery B/L History of colonoscopy (2010) History of endovascular stent graft for abdominal aortic aneurysm (10/2018) History of nasal surgery History of repair of aneurysm of abdominal aorta 11/14/[address] DOWNEY, STENT IN [place] MAC #3, ETT #7.5, HiLo Oral, Grade 1 View History of shoulder surgery B/L Family History Other Hypertension Lung disease Social History Smoking Status: Never smoker Second Hand Exposure: No; Hx Alcohol Use: No Hx Substance Use: No Preferred Language: Cypriot Communication Ability: Effective Ex Chef Required: No Beliefs That Will Affect Care: None Current Living Situation: Spouse Feels Safe at Home: Yes Assistive Devices: Glasses Review of Systems See HPI for pertinent positives & negatives. and A total of 10 systems reviewed and were otherwise negative Physical Exam Vital Signs Vital Signs - 24 hr 11/11/20 00:54 11/11/20 01:17 11/11/20 02:05 Temperature 37.6 C H Temperature Source Temporal Artery Scan Pulse Rate 135 H 132 H 102 H Pulse Rate from SpO2 Sensor 118 H 117 H Respiratory Rate 22 21 21 Respiratory Effort / Characteristics Blood Pressure 91/60 L 140/72 Blood Pressure Mean 70 94 Blood Pressure Position Sitting Pulse Oximetry 93 92 92 Oxygen Delivery Method Room Air Room Air Room Air Sepsis Recent Fever Within 48 Hours Yes Sepsis New/Unexplained Change in Mental Status No Sepsis Action Taken by Nursing No Action Required 11/11/20 02:21 11/11/20 02:30 11/11/20 02:42 Temperature Temperature Source Pulse Rate 107 H 105 H Pulse Rate from SpO2 Sensor 114 H 106 H Respiratory Rate 21 20 Respiratory Effort / Characteristics Non-Labored Spontaneous Blood Pressure 112/64 Blood Pressure Mean 80 Blood Pressure Position Pulse Oximetry 95 94 Oxygen Delivery Method Room Air Room Air Sepsis Recent Fever Within 48 Hours Sepsis New/Unexplained Change in Mental Status Sepsis Action Taken by Nursing 11/11/20 03:00 11/11/20 03:02 11/11/20 03:30 Temperature 37.5 C Temperature Source Oral Pulse Rate 119 H 99 H Pulse Rate from SpO2 Sensor 119 H 98 H Respiratory Rate 23 18 Respiratory Effort / Characteristics Blood Pressure 122/67 Blood Pressure Mean 85 Blood Pressure Position Pulse Oximetry 94 94 Oxygen Delivery Method Room Air Room Air Sepsis Recent Fever Within 48 Hours Sepsis New/Unexplained Change in Mental Status Sepsis Action Taken by Nursing GENERAL: alert, well appearing, well nourished, no distress, non-toxic EYE EXAM: normal conjunctiva, PERRL and EOM's grossly intact OROPHARYNX: no exudate, no erythema, lips, buccal mucosa, and tongue normal and mucous membranes are moist NECK: supple, no nuchal rigidity, no adenopathy, non-tender LUNGS: Clear to auscultation. Normal chest wall mechanics, no w/r/r HEART: no murmurs, S1 normal and S2 normal ABDOMEN: abdomen soft, non-tender, normo-active bowel sounds, no masses, no rebound or guarding. Small umbilical hernia noted, nontender and easily reduced. BACK: Back is symmetrical on inspection and there is no deformity, no midline tenderness, no CVA tenderness. SKIN: no rashes and no bruising, multiple areas of excoriation and healing noted on bilateral arms and legs. UPPER EXTREMITIES: upper extremities are grossly normal. FROM, nml pulses b/l. LOWER EXTREMITIES: No pitting edema. FROM, nml pulses b/l. NEURO EXAM: Normal sensorium, cranial nerves II-XII grossly intact, normal speech, no gross weakness of arms, no gross weakness of legs. Gross sensation intact. Course Administered Medications Lactated Ringer's (Lr) 1,000 mls @ 80 mls/hr IV .[id number] [place] Stop: 11/11/20 19:29 Last Admin: 11/11/20 06:42 Dose: 80 mls/hr Documented by: [id number] Discontinued Medications Sodium Chloride (Nss 1000ml) 1,000 mls @ 999 mls/hr IV .Q1H1M [place] Stop: 11/11/20 02:30 Last Infusion: 11/11/20 03:05 Dose: 0 mls/hr Documented by: [id number] Admin: 11/11/20 01:59 Dose: 999 mls/hr Documented by: [id number] Cefepime HCl (Maxipime) 2,000 mg in 20 mls @ 5 mls/min IV NOW STA Stop: 11/11/20 01:26 Last Admin: 11/11/20 01:57 Dose: 5 mls/min Documented by: [id number] Sodium Chloride (Nss 1000ml) 1,000 mls @ 999 mls/hr IV .Q1H1M ONE Stop: 11/11/20 05:16 Last Infusion: 11/11/20 05:04 Dose: 0 mls/hr Documented by: [id number] Admin: 11/11/20 04:27 Dose: 999 mls/hr Documented by: [id number] Medical Decision Making Differential Diagnosis Differential diagnosis: Etiologies such as viral syndrome, otitis, pharyngitis, pneumonia, influenza, meningitis, urinary tract infection, sepsis, bacteremia, as well as others were entertained. Medical Records Attestation: I reviewed the patient's medical records. Home Medications Current Medication List: was personally reviewed by me Laboratory Data Attestation: I reviewed the patient's lab results. Result diagrams: 11/11/20 02:00 11/11/20 02:00 Lab Results 11/11/20 11/11/20 11/11/20 Range/Units 02:00 02:00 02:00 WBC 9.48 (4.8-10.8) K/uL RBC 3.90 L (4.7-6.1) M/uL Hgb 13.2 L (14.0-18.0) g/dL Hct 39.1 L (42-52) % MCV 100.3 H (80-100) fL MCH 33.8 (25-34) pg MCHC 33.8 (32-36) g/dL RDW Std Deviation 56.1 H (36.4-46.3) fL RDW Coeff of Vera 15.5 H (11.5-14.5) % Plt Count 212 (130-400) K/uL MPV 10.9 H (7.4-10.4) fL Immature Gran % (Auto) 0.4 % Neut % (Auto) 90.0 % Lymph % (Auto) 4.7 % [place] % (Auto) 4.7 % Eos % (Auto) 0.1 % Baso % (Auto) 0.1 % Neut # (Auto) 8.52 H (1.4-6.5) K/uL Lymph # (Auto) 0.45 L (1.2-3.4) K/uL [place] # (Auto) 0.45 (0.11-0.59) K/uL Eos # (Auto) 0.01 (0-0.5) K/uL Baso # (Auto) 0.01 (0-0.2) K/uL Immature Gran # (Auto) 0.04 H (0.00-0.02) K/uL PT (9.0-12.0) Seconds INR (0.9-1.1) APTT (21.0-31.0) Seconds PTT Ratio Sodium 141 (136-145) mmol/L Potassium 4.2 (3.5-5.1) mmol/L Chloride 107 (98-107) mmol/L Carbon Dioxide 25 (21-32) mmol/L Anion Gap 9.0 (3-11) BUN 20 H (7-18) mg/dl Creatinine 1.35 (0.6-1.4) mg/dl Est Cr Clr Drug Dosing 48.0 ml/min Est GFR ( Amer) 56.7 Est GFR (Non-Af Amer) 48.9 BUN/Creatinine Ratio 15.1 (10-20) Glucose 131 H (70-99) mg/dl Lactate (0.4-2.0) mmol/L Calcium 8.6 (8.5-10.1) mg/dl Magnesium 1.7 L (1.8-2.4) mg/dl Total Bilirubin 1.6 H (0.2-1) mg/dl AST 25 (15-37) U/L ALT 22 (12-78) U/L Alkaline Phosphatase 53 (45-117) U/L Troponin I < 0.015 (0-0.045) ng/ml Total Protein 7.1 (6.4-8.2) gm/dl Albumin 3.6 (3.4-5.0) gm/dl Globulin 3.5 (2.5-4.0) gm/dl Albumin/Globulin Ratio 1.0 (0.9-2) Procalcitonin 0.54 H (0-0.5) ng/ml COVID-19 Eval Order SARS-CoV-2, RNA, NAAT (NEGATIVE) 11/11/20 11/11/20 11/11/20 Range/Units 02:25 02:25 03:30 WBC (4.8-10.8) K/uL RBC (4.7-6.1) M/uL Hgb (14.0-18.0) g/dL Hct (42-52) % MCV (80-100) fL MCH (25-34) pg MCHC (32-36) g/dL RDW Std Deviation (36.4-46.3) fL RDW Coeff of Vera (11.5-14.5) % Plt Count (130-400) K/uL MPV (7.4-10.4) fL Immature Gran % (Auto) % Neut % (Auto) % Lymph % (Auto) % [place] % (Auto) % Eos % (Auto) % Baso % (Auto) % Neut # (Auto) (1.4-6.5) K/uL Lymph # (Auto) (1.2-3.4) K/uL [place] # (Auto) (0.11-0.59) K/uL Eos # (Auto) (0-0.5) K/uL Baso # (Auto) (0-0.2) K/uL Immature Gran # (Auto) (0.00-0.02) K/uL PT 19.1 H (9.0-12.0) Seconds INR 2.0 H (0.9-1.1) APTT 27.4 (21.0-31.0) Seconds PTT Ratio 1.0 Sodium (136-145) mmol/L Potassium (3.5-5.1) mmol/L Chloride (98-107) mmol/L Carbon Dioxide (21-32) mmol/L Anion Gap (3-11) BUN (7-18) mg/dl Creatinine (0.6-1.4) mg/dl Est Cr Clr Drug Dosing ml/min Est GFR ( Amer) Est GFR (Non-Af Amer) BUN/Creatinine Ratio (10-20) Glucose (70-99) mg/dl Lactate 1.2 (0.4-2.0) mmol/L Calcium (8.5-10.1) mg/dl Magnesium (1.8-2.4) mg/dl Total Bilirubin (0.2-1) mg/dl AST (15-37) U/L ALT (12-78) U/L Alkaline Phosphatase (45-117) U/L Troponin I (0-0.045) ng/ml Total Protein (6.4-8.2) gm/dl Albumin (3.4-5.0) gm/dl Globulin (2.5-4.0) gm/dl Albumin/Globulin Ratio (0.9-2) Procalcitonin (0-0.5) ng/ml COVID-19 Eval [id number] SARS-CoV-2, RNA, NAAT (NEGATIVE) 11/11/20 Range/Units 03:30 WBC (4.8-10.8) K/uL RBC (4.7-6.1) M/uL Hgb (14.0-18.0) g/dL Hct (42-52) % MCV (80-100) fL MCH (25-34) pg MCHC (32-36) g/dL RDW Std Deviation (36.4-46.3) fL RDW Coeff of Vera (11.5-14.5) % Plt Count (130-400) K/uL MPV (7.4-10.4) fL Immature Gran % (Auto) % Neut % (Auto) % Lymph % (Auto) % [place] % (Auto) % Eos % (Auto) % Baso % (Auto) % Neut # (Auto) (1.4-6.5) K/uL Lymph # (Auto) (1.2-3.4) K/uL [place] # (Auto) (0.11-0.59) K/uL Eos # (Auto) (0-0.5) K/uL Baso # (Auto) (0-0.2) K/uL Immature Gran # (Auto) (0.00-0.02) K/uL PT (9.0-12.0) Seconds INR (0.9-1.1) APTT (21.0-31.0) Seconds PTT Ratio Sodium (136-145) mmol/L Potassium (3.5-5.1) mmol/L Chloride (98-107) mmol/L Carbon Dioxide (21-32) mmol/L Anion Gap (3-11) BUN (7-18) mg/dl Creatinine (0.6-1.4) mg/dl Est Cr Clr Drug Dosing ml/min Est GFR ( Amer) Est GFR (Non-Af Amer) BUN/Creatinine Ratio (10-20) Glucose (70-99) mg/dl Lactate (0.4-2.0) mmol/L Calcium (8.5-10.1) mg/dl Magnesium (1.8-2.4) mg/dl Total Bilirubin (0.2-1) mg/dl AST (15-37) U/L ALT (12-78) U/L Alkaline Phosphatase (45-117) U/L Troponin I (0-0.045) ng/ml Total Protein (6.4-8.2) gm/dl Albumin (3.4-5.0) gm/dl Globulin (2.5-4.0) gm/dl Albumin/Globulin Ratio (0.9-2) Procalcitonin (0-0.5) ng/ml COVID-19 Eval Order SARS-CoV-2, RNA, NAAT NEGATIVE (NEGATIVE) Imaging Data My Impression: X-ray: I interpreted the following studies. Chest: A single view study of the chest was reviewed and was negative for cardiomegaly, focal infiltrate, effusion, pulmonary edema, or wide mediastinum. ECG Data Attestation: I personally reviewed and interpreted this ECG as follows: Indication: + weakness Rate (beats per minute): 120 Rhythm: + atrial fibrillation ECG Intervals/blocks: + Normal QRS and + Normal QT ECG [place]: + Normal ECG ST segments: + Nonspecific ST abnormalities ECG Findings: + PVCs MDM Narrative This 80-year-old male presents the emergency department with concern for fevers and chills at home following a BCG treatment for bladder cancer earlier today. Patient states this is similar to prior episode that resulted in a urinary tract infection and subsequent sepsis. Patient states he did drink plenty of fluid at home following the treatment as he is aware that he needs to stay hydrated with these as he has had multiple treatments prior. Patient was afebrile by the time of arrival, although was found to be significantly tachycardic. Patient does have a history of A. fib and is anticoagulated. Patient was placed on telemetry, labs and cultures drawn, chest x-ray performed, and started on IV fluids. Patient initially with borderline low blood pressure although immediately came up with initiation of IV fluids. Patient did not have any recurrent episodes of hypotension, and had no other new or evolving symptoms. Patient denies any associated pain, nausea or vomiting. Patient denied any recurrent chills when the emergency room. Patient's pro calcitonin was slightly elevated although he had no significant leukocytosis or elevation of lactic acid. Patient's renal function was normal. Patient's heart rate did slowly improve with additional IV fluids. Patient did receive a total of 30 mL/KG of IV fluids in the emergency room based on ideal body weight. Patient's INR was therapeutic. Patient had no other new or evolving symptoms while in the emergency room. Case discussed with hospitalist for additional evaluation and management. An order was placed for continuous cardiac monitoring. The monitor shows a rate of _113_ with _atrial fibrillation_ rhythm. Impression & Plan Fever, SIRS (systemic inflammatory response syndrome), Atrial fibrillation with RVR, UTI (urinary tract infection), Hypomagnesemia Discharge Plan Visit Data Chief Complaint: Illness Stated Complaint: CHILLS,NAUSEA,FEVER,HIGH HR ED Provider: Shirley Rouse Discharge Problem: Fever, SIRS (systemic inflammatory response syndrome), Atrial fibrillation with RVR, UTI (urinary tract infection), Hypomagnesemia Patient Disposition: Admitted As Inpatient Discharge Instructions Interventions: ED Discharge Assessment Last Done: 11/11/20 06:15 Discharge Problem: Fever Qualifiers: Fever type: unspecified Qualified Code(s): R50.9 - Fever, unspecified UTI (urinary tract infection) Qualifiers: Urinary tract infection type: acute cystitis Hematuria presence: with hematuria Qualified Code(s): N30.01 - Acute cystitis with hematuria
[2020-11-11 02:16] LABS: Basophils # (auto) 0.01 K/uL (0-0.2); Basophils % (auto) 0.1 %; Eosinophils # (auto) 0.01 K/uL (0-0.5); Eosinophils % (auto) 0.1 %; Hematocrit (blood only) 39.1 % (42-52); Hemoglobin 13.2 g/dL (14.0-18.0); Immature Granulocytes # (auto) 0.04 K/uL (0.00-0.02); Immature Granulocytes % (auto) 0.4 %; Lymphocytes # (auto) 0.45 K/uL (1.2-3.4); Lymphocytes % (auto) 4.7 %; Mean Corpuscular Hemoglobin 33.8 pg (25-34); Mean Corpuscular Hgb Conc 33.8 g/dL (32-36); Mean Corpuscular Volume 100.3 fL (80-100); Mean Platelet Volume 10.9 fL (7.4-10.4); Monocytes # (auto) 0.45 K/uL (0.11-0.59); Monocytes % (auto) 4.7 %; Neutrophils # (auto) 8.52 K/uL (1.4-6.5); Platelet Count 212 K/uL (130-400); RDW Coefficient of Variation 15.5 % (11.5-14.5); RDW Standard Deviation 56.1 fL (36.4-46.3); White Blood Count 9.48 K/uL (4.8-10.8)
[2020-11-11 02:34] LABS: Alanine Aminotransferase 22 U/L (12-78); Albumin Level 3.6 gm/dl (3.4-5.0); Aspartate Aminotransferase 25 U/L (15-37); BUN Creatinine Ratio 15.1 (10-20); Blood Urea Nitrogen 20 mg/dl (7-18); Calcium 8.6 mg/dl (8.5-10.1); Carbon Dioxide 25 mmol/L (21-32); Chloride 107 mmol/L (98-107); Est GFR (African American) 56.7; Est GFR (Non-African American) 48.9; Glucose 131 mg/dl (70-99); Magnesium 1.7 mg/dl (1.8-2.4); Potassium 4.2 mmol/L (3.5-5.1); Sodium 141 mmol/L (136-145)
[2020-11-11 02:38] LABS: Alkaline Phosphatase 53 U/L (45-117); Bilirubin,Total 1.6 mg/dl (0.2-1); Globulin 3.5 gm/dl (2.5-4.0); Total Protein 7.1 gm/dl (6.4-8.2); Troponin I < 0.015 ng/ml (0-0.045)
[2020-11-11 02:49] LABS: Partial Thromboplastin Time 27.4 Seconds (21.0-31.0); Prothrombin Time 19.1 Seconds (9.0-12.0)
[2020-11-11] MEDS ORDERED: SODIUM CHLORIDE 0.9% 1000ML 1,000 ML IV ONE (04:16)
--- NOTE | 2020-11-11 04:17 | History & Physical Report ---
Date of Service November 11, 2020 Assessment & Plan (1) UTI (urinary tract infection): Suspect UTI, possible bacteremia following BCG treatment. Presentation is similar to prior episode. Presently afebrile, HD stable, non-toxic in appearance. No leukocytosis. Lactate WNL. Mildly elevated procalcitonin at 0.054 -Blood cultures pending -UA with gram stain and culture to be collected -Patient with history of enterococcus faecalis UTI in 2019 - Sn to Ampicillin and Vancomycin. He received 2gm Cefepime in ER at 01:26. Will give Vancomycin as well. Antibiotics to be continued based on gram stain/culture data Present on Admission?: Yes (2) CAD (coronary artery disease): Chronic. Stable. No CP. No evidence of ischemia -Continue ASA and Crestor Present on Admission?: Yes (3) Atrial fibrillation with RVR: Elevated HR on arrival, improving with IVF, presently 119. Patient anticoagulated on Coumadin with therapeutic INR of 2 -Continue Verapamil -Continue Coumadin -Continue to monitor Present on Admission?: Yes (4) HTN (hypertension): Patient with borderline low BP in ER -Check orthostatic VS x 1 as patient describes becomming dizzy with positional changes -Continue to monitor Present on Admission?: Yes (5) BPH (benign prostatic hyperplasia): Chronic -Continue Tamsulosin and Finasteride -Check orthostatic VS as above F/E/N - LR at 80mL/hr, Mg repletion with 1gm IV, regular diet as tolerated Ppx - On Coumadin for AF with therapeutic INR Code - Full per discussion with patient. Would not want senior living heroic measures Dispo - Admit to medical with telemetry Present on Admission?: Yes History of Present Illness Chief Complaint: fever, chills, rigors Primary Care Provider: Jonathan Phillips Teddy Odonnell is a pleasant 80yo male with history of bladder cancer presently receiving BCG therapy, AF on Coumadin, BPH,and AAA s/p endovascular stent graft placement. Patient was seen in Urology clinic yesterday and received a BCG t reatment for his bladder cancer. He tolerated the treatment well with no complications. After returning home he reports developing acute shaking chills, fatigue, nausea and body aches around 18:30; temperature to 100.1 and a fast heart rate. He denies chest pain, back pain, abdominal pain. He had some mild hematuria which is not uncommon following his BCG treatment. He reports becoming dizzy with positional changes over the last week. Otherwise, patien twith no complaints. He feels better now. He had similar event occur appx 1 year ago for which he was hospitalized for antibiotics and fl uids. ER Course: 2L NSS, Cefepime Allergies Allergy/AdvReac Type Severity Reaction Status Date / Time No Known Allergies Allergy Unverified 11/10/20 12:53 Home Medications Medication Instructions Recorded Confirmed Type aspirin 81 mg PO QPM 06/23/18 11/11/20 History cholecalciferol (vitamin D3) 1,000 unit PO QAM 06/23/18 11/11/20 History [Vitamin D3] chromium picolinate 400 mcg PO QAM 06/23/18 11/11/20 History escitalopram oxalate 5 mg PO HS 06/23/18 11/11/20 History finasteride 5 mg PO QPM 06/23/18 11/11/20 History glucosamine-chondroitin 1 cap PO QPM 06/23/18 11/11/20 History latanoprost 1 drp OPB PM 06/23/18 11/11/20 History lecithin 1,200 mg PO QPM 06/23/18 11/11/20 History multivitamin 1 tab PO QAM 06/23/18 11/11/20 History tamsulosin 0.4 mg PO QPM 11/06/18 11/11/20 History hydroxyzine HCl 25 mg PO HS PRN 04/06/19 11/11/20 History triamcinolone acetonide 1 applic TOPICAL UD PRN 04/06/19 11/11/20 History vitamin B complex 1 tab PO QPM 11/19/19 11/11/20 History verapamil 120 mg tablet 120 mg PO QAM #90 tab 07/10/20 11/11/20 Rx rosuvastatin 10 mg tablet 10 mg PO QAM #90 tab 07/15/20 11/11/20 Rx warfarin 5 mg tablet 5 mg PO UD #90 tab 10/14/20 11/11/20 Rx Past Med/Surg History Medical History (Updated 11/11/20 @ 04:15 by Naila Staton DO) AAA (abdominal aortic aneurysm) (2019) Atrial fibrillation DX 2011/NO HX CARDIOVERSION Bilateral inguinal hernia BPH (benign prostatic hyperplasia) Depression Dyslipidemia Glaucoma Hearing deficit Ischemic cardiomyopathy EF=45% 2014 Osteoarthritis Skin abnormality LIGHT TREATMENTS FOR 2X PER WEEK Tremor HANDS; SUSPECTED BENIGN/ESSENTIAL Umbilical hernia Surgical History H/O left inguinal hernia repair H/O right inguinal hernia repair 01/25/19: MAC #3, ETT #7.5, HiLo Oral, Grade 2 View History of cataract surgery B/L History of colonoscopy (2010) History of endovascular stent graft for abdominal aortic aneurysm (10/2018) History of nasal surgery History of repair of aneurysm of abdominal aorta 11/14/[address] 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: No Beliefs That Will Affect Care: None Current Living Situation: Spouse Feels Safe at Home: Yes Assistive Devices: Glasses Review of Systems Review of Systems: All systems reviewed & are unremarkable except as noted in HPI & below Physical Exam Physical Exam: General: patient resting comfortably, NAD, non-toxic in appearance, AA&O x 4 Skin: warm, dry, intact, no rashes or lesions HEENT: NC/AT, PERRL, EOMI, anicteric sclera, conjunctiva without injection, external ear normal to inspection and nontender, nares patent, moist mucus membranes, dentition intact, no oropharyngeal lesions, neck supple, trachea midline, no LAD, no thyromegaly, no JVD Heart: +S1/S2, irregularly irregular, tachycardic, no m/r/g Lungs: equal air entry bilaterally, no rales/rhonchi/wheezes Abd: +BS, soft, NT/ND, no masses/organomegaly/ascites Ext: warm, 2+ pulses in UE/LE bilaterally, no clubbing/cyanosis or edema Neuro: nonfocal, patient AA&O x 4, speech intact, no facial droop, moving all extremities on command with equal strength 5/5 Results & Data Results & Data ([facility]) Vital Signs (Past 12 Hours) Vital Signs Temp Pulse Resp BP Pulse Ox 11/11/20 03:02 37.5 C 11/11/20 03:00 119 H 23 122/67 94 11/11/20 02:42 105 H 20 112/64 94 11/11/20 02:30 107 H 21 95 11/11/20 02:05 102 H 21 92 11/11/20 01:17 132 H 21 140/72 92 11/11/20 00:54 37.6 C H 135 H 22 91/60 L 93 Laboratory Results Lab Results 11/11/20 11/11/20 11/11/20 Range/Units 02:00 02:00 02:00 WBC 9.48 (4.8-10.8) K/uL RBC 3.90 L (4.7-6.1) M/uL Hgb 13.2 L (14.0-18.0) g/dL Hct 39.1 L (42-52) % MCV 100.3 H (80-100) fL MCH 33.8 (25-34) pg MCHC 33.8 (32-36) g/dL RDW Std Deviation 56.1 H (36.4-46.3) fL RDW Coeff of Vera 15.5 H (11.5-14.5) % Plt Count 212 (130-400) K/uL MPV 10.9 H (7.4-10.4) fL Immature Gran % (Auto) 0.4 % Neut % (Auto) 90.0 % Lymph % (Auto) 4.7 % Garza % (Auto) 4.7 % Eos % (Auto) 0.1 % Baso % (Auto) 0.1 % Neut # (Auto) 8.52 H (1.4-6.5) K/uL Lymph # (Auto) 0.45 L (1.2-3.4) K/uL Garza # (Auto) 0.45 (0.11-0.59) K/uL Eos # (Auto) 0.01 (0-0.5) K/uL Baso # (Auto) 0.01 (0-0.2) K/uL Immature Gran # (Auto) 0.04 H (0.00-0.02) K/uL PT (9.0-12.0) Seconds INR (0.9-1.1) APTT (21.0-31.0) Seconds PTT Ratio Sodium 141 (136-145) mmol/L Potassium 4.2 (3.5-5.1) mmol/L Chloride 107 (98-107) mmol/L Carbon Dioxide 25 (21-32) mmol/L Anion Gap 9.0 (3-11) BUN 20 H (7-18) mg/dl Creatinine 1.35 (0.6-1.4) mg/dl Est Cr Clr Drug Dosing 48.0 ml/min Est GFR ( Amer) 56.7 Est GFR (Non-Af Amer) 48.9 BUN/Creatinine Ratio 15.1 (10-20) Glucose 131 H (70-99) mg/dl Lactate (0.4-2.0) mmol/L Calcium 8.6 (8.5-10.1) mg/dl Magnesium 1.7 L (1.8-2.4) mg/dl Total Bilirubin 1.6 H (0.2-1) mg/dl AST 25 (15-37) U/L ALT 22 (12-78) U/L Alkaline Phosphatase 53 (45-117) U/L Troponin I < 0.015 (0-0.045) ng/ml Total Protein 7.1 (6.4-8.2) gm/dl Albumin 3.6 (3.4-5.0) gm/dl Globulin 3.5 (2.5-4.0) gm/dl Albumin/Globulin Ratio 1.0 (0.9-2) Procalcitonin 0.54 H (0-0.5) ng/ml COVID-19 Eval Order SARS-CoV-2, RNA, NAAT (NEGATIVE) 11/11/20 11/11/20 11/11/20 Range/Units 02:25 02:25 03:30 WBC (4.8-10.8) K/uL RBC (4.7-6.1) M/uL Hgb (14.0-18.0) g/dL Hct (42-52) % MCV (80-100) fL MCH (25-34) pg MCHC (32-36) g/dL RDW Std Deviation (36.4-46.3) fL RDW Coeff of Vera (11.5-14.5) % Plt Count (130-400) K/uL MPV (7.4-10.4) fL Immature Gran % (Auto) % Neut % (Auto) % Lymph % (Auto) % Garza % (Auto) % Eos % (Auto) % Baso % (Auto) % Neut # (Auto) (1.4-6.5) K/uL Lymph # (Auto) (1.2-3.4) K/uL Garza # (Auto) (0.11-0.59) K/uL Eos # (Auto) (0-0.5) K/uL Baso # (Auto) (0-0.2) K/uL Immature Gran # (Auto) (0.00-0.02) K/uL PT 19.1 H (9.0-12.0) Seconds INR 2.0 H (0.9-1.1) APTT 27.4 (21.0-31.0) Seconds PTT Ratio 1.0 Sodium (136-145) mmol/L Potassium (3.5-5.1) mmol/L Chloride (98-107) mmol/L Carbon Dioxide (21-32) mmol/L Anion Gap (3-11) BUN (7-18) mg/dl Creatinine (0.6-1.4) mg/dl Est Cr Clr Drug Dosing ml/min Est GFR ( Amer) Est GFR (Non-Af Amer) BUN/Creatinine Ratio (10-20) Glucose (70-99) mg/dl Lactate 1.2 (0.4-2.0) mmol/L Calcium (8.5-10.1) mg/dl Magnesium (1.8-2.4) mg/dl Total Bilirubin (0.2-1) mg/dl AST (15-37) U/L ALT (12-78) U/L Alkaline Phosphatase (45-117) U/L Troponin I (0-0.045) ng/ml Total Protein (6.4-8.2) gm/dl Albumin (3.4-5.0) gm/dl Globulin (2.5-4.0) gm/dl Albumin/Globulin Ratio (0.9-2) Procalcitonin (0-0.5) ng/ml COVID-19 Eval [facility] SARS-CoV-2, RNA, NAAT (NEGATIVE) 11/11/20 Range/Units 03:30 WBC (4.8-10.8) K/uL RBC (4.7-6.1) M/uL Hgb (14.0-18.0) g/dL Hct (42-52) % MCV (80-100) fL MCH (25-34) pg MCHC (32-36) g/dL RDW Std Deviation (36.4-46.3) fL RDW Coeff of Vera (11.5-14.5) % Plt Count (130-400) K/uL MPV (7.4-10.4) fL Immature Gran % (Auto) % Neut % (Auto) % Lymph % (Auto) % Garza % (Auto) % Eos % (Auto) % Baso % (Auto) % Neut # (Auto) (1.4-6.5) K/uL Lymph # (Auto) (1.2-3.4) K/uL Garza # (Auto) (0.11-0.59) K/uL Eos # (Auto) (0-0.5) K/uL Baso # (Auto) (0-0.2) K/uL Immature Gran # (Auto) (0.00-0.02) K/uL PT (9.0-12.0) Seconds INR (0.9-1.1) APTT (21.0-31.0) Seconds PTT Ratio Sodium (136-145) mmol/L Potassium (3.5-5.1) mmol/L Chloride (98-107) mmol/L Carbon Dioxide (21-32) mmol/L Anion Gap (3-11) BUN (7-18) mg/dl Creatinine (0.6-1.4) mg/dl Est Cr Clr Drug Dosing ml/min Est GFR ( Amer) Est GFR (Non-Af Amer) BUN/Creatinine Ratio (10-20) Glucose (70-99) mg/dl Lactate (0.4-2.0) mmol/L Calcium (8.5-10.1) mg/dl Magnesium (1.8-2.4) mg/dl Total Bilirubin (0.2-1) mg/dl AST (15-37) U/L ALT (12-78) U/L Alkaline Phosphatase (45-117) U/L Troponin I (0-0.045) ng/ml Total Protein (6.4-8.2) gm/dl Albumin (3.4-5.0) gm/dl Globulin (2.5-4.0) gm/dl Albumin/Globulin Ratio (0.9-2) Procalcitonin (0-0.5) ng/ml COVID-19 Eval Order SARS-CoV-2, RNA, NAAT NEGATIVE (NEGATIVE) Code Status & VTE Plan VTE Prophylaxis Plan VTE Prophylaxis will be ordered: Yes PG Care Time/CCT Total # of Minutes Spent Total Time Spent with Patient: Total time spent is greater than 50% in coordination of care (as documented) at patient's floor/unit and/or counseling patient: Coding Level of Care Code 94213 OBS Care - Level 3 Diagnoses UTI (urinary tract infection) N39.0; R31.9 Hematuria presence: with hematuria Urinary tract infection type: site unspecified CAD (coronary artery disease) I25.10 Coronary Disease-Associated Artery/Lesion type: [place] artery [place] vs. transplanted heart: [place] heart Associated angina: without angina Atrial fibrillation with RVR I48.91 HTN (hypertension) I10 Hypertension type: essential hypertension BPH (benign prostatic hyperplasia) N40.0 Lower urinary tract symptom presence: symptoms absent (1) CAD (coronary artery disease) Coronary Disease-Associated Artery/Lesion type: [place] artery [place] vs. transplanted heart: [place] heart Associated angina: without angina Qualified Code(s): I25.10 - Atherosclerotic heart disease of [place] coronary artery without angina pectoris (2) UTI (urinary tract infection) Hematuria presence: with hematuria Urinary tract infection type: site unspecified Qualified Code(s): N39.0 - Urinary tract infection, site not specified; R31.9 - Hematuria, unspecified (3) HTN (hypertension) Hypertension type: essential hypertension Qualified Code(s): I10 - Essential (primary) hypertension (4) BPH (benign prostatic hyperplasia) Lower urinary tract symptom presence: symptoms absent Qualified Code(s): N4 0.0 - Benign prostatic hyperplasia without lower urinary tract symptoms
[2020-11-11 06:35] LABS: Appearance Urine Clear (Clear); Bacteria Urine Automated Negative (Negative); Bilirubin Urine Negative (Negative); Blood Urine 3+ (Negative); Color Urine Yellow; Epithelial Cell Urine Auto 20-30 /lpf (0-5); Glucose Urine UA Negative (Negative); Ketones Urine Negative (Negative); Leukocyte Esterase Urine 1+ (Negative); Nitrite Urine Negative (Negative); Protein Urine Trace (Negative); RBC Urine Automated >30 /hpf (0-4); Specific Gravity Urine 1.018 (1.000-1.030); Urobilinogen Urine Negative (Negative); WBC Urine Automated >30 /hpf (0-5)
[2020-11-11] MEDS ORDERED: ONDANSETRON INJ 2 MG/ML 2 ML VIAL IV PRN (06:36)
[2020-11-11] MEDS ORDERED: VANCOMYCIN CONSULT ACTIVE PRN (06:36)
[2020-11-11] MEDS ORDERED: hydrOXYzine HCl 25 MG TAB PO PRN (06:36)
[2020-11-11] MEDS ORDERED: ACETAMINOPHEN 325 MG TAB PO PRN (06:36)
--- NOTE | 2020-11-11 06:49 | XRay Report ---
XR chest 1V portable HISTORY: 80 years-old Male SEPSIS acute sepsis COMPARISON: Chest radiograph 11/23/2019, CTA chest 11/19/2019 TECHNIQUE: Portable AP view of the chest FINDINGS: Cardiac mediastinal and hilar silhouettes are within normal limits. Calcified plaque of the thoracic aorta. No pneumothorax, large pleural effusion, airspace consolidation or overt pulmonary edema. Mild blunting of the costophrenic angles may be secondary to trace effusions versus atelectasis. Mild chr onic interstitial coarsening. Bones appear grossly intact. IMPRESSION: No acute process. ACT 112: Negative or not required by law. The above report was generated using voice recognition software. It may contain grammatical, syntax o r spelling errors. Electronically signed by: Chente Caraballo M.D. 11/11/2020 6:47 AM
[2020-11-11] MEDS ORDERED: LACTATED RINGER'S 1,000 ML IV SCH (07:00)
[2020-11-11] MEDS ORDERED: MAGNESIUM SULFATE / D5W 1 GM/100 ML BAG IV ONE (07:00)
[2020-11-11] MEDS ORDERED: VANCOMYCIN HCL 2,000 MG in SODIUM CHLORIDE 0.9% 500 ML IV ONE (07:15)
--- NOTE | 2020-11-11 07:43 | Hospitalist Progress Note ---
Date of Service November 11, 2020 Assessment & Plan (1) UTI (urinary tract infection): Suspect UTI, possible bacteremia following BCG treatment. Presentation is similar to prior episode. Presently afebrile, HD stable, non-toxic in appearance. No leukocytosis. Lactate WNL. Mildly elevated procalcitonin at 0.054 -Blood cultures pending -UA with gram stain and culture pending final analysis -Patient with history of enterococcus faecalis UTI in 2019 - Sn to Ampicillin and Vancomycin. He received 2gm Cefepime in ER at 01:26. Started and remains on vancomycin as the only antibiotic at present (2) CAD (coronary artery disease): Chronic. Stable. No CP. No evidence of ischemia -Continue ASA and Crestor (3) Atrial fibrillation with RVR: Elevated HR on arrival, improving with IVF, presently 119. Patient anticoagulated on Coumadin with therapeutic INR of 2 -Continue Verapamil -Continue Coumadin -Continue to monitor (4) HTN (hypertension): Patient with borderline low BP in ER -Check orthostatic VS x 1 as patient describes becomming dizzy with positional changes -Continue to monitor (5) BPH (benign prostatic hyperplasia): Chronic -Continue Tamsulosin and Finasteride -Check orthostatic VS as above F/E/N - LR at 80mL/hr, Mg repletion with 1gm IV, regular diet as tolerated Ppx - On Coumadin for AF with therapeutic INR Code - Full per discussion with patient. Would not want jail heroic measures Dispo - Admit to medical with telemetry Admission and Anticipated Discharge Date Admission Date: November 11, 2020 Subjective pt was in good spirits he said he started to feel well after vomiting in parking lot prior to er visit, curiously the same as the last issues with bacteremia Review of Systems Review of Systems: Mild distress and fatigue no headache, blurry or double vision no speech or swallowing issues no chest pain, pressure or palpitations no shortness of breath, cough or wheezes no abdominal pain, nausea or vomiting, diarrhea or constipation no dysuria, hematuria or frequency no focal joint pain or swelling no back pain, CVA tenderness or radicular pain no bruising, bleeding or rashes no focal signs of weakness or numbness or altered sensation no complaints of anxiety or depression.. Physical Exam Physical Exam: The patient appeared well nourished and normally developed. Vital signs as documented. Head exam is normocephalic atraumatic no scleral icterus Neck is without JVD, thyromegaly, or carotid bruits. Lungs are clear to auscultation, no focal loss of breath sounds Cardiac exam, Rhythm is regular.. No murmurs, rubs or gallops. Abdominal exam reveals normal bowel sounds, soft non tender, no masses Extremities are nonedematous and both pedal pulses are present Neurologic exam is alert and oriented, no focal loss of strength or sensation Skin is without bruises or rashes Psychologically is without concerns for anxiety or depression Results & Data Results & Data ([facility]) Vital Signs (Past 12 Hours) Vital Signs Temp Pulse Pulse Resp BP BP Pulse Ox 11/11/20 06:51 98.1 F 107 H 20 131/66 95 11/11/20 06:00 92 H 16 122/58 L 95 11/11/20 05:30 89 18 96 11/11/20 05:00 117 H 20 158/91 H 98 11/11/20 04:12 109 H 19 97/53 L 94 11/11/20 03:30 99 H 18 94 11/11/20 03:02 99.5 F 11/11/20 03:00 119 H 23 122/67 94 11/11/20 02:42 105 H 20 112/64 94 11/11/20 02:30 107 H 21 95 11/11/20 02:05 102 H 21 92 11/11/20 01:17 132 H 21 140/72 92 11/11/20 00:54 99.7 F H 135 H 22 91/60 L 93 PG Care Time/CCT Total # of Minutes Spent Total Time Spent with Patient: Total time spent is greater than 50% in coordination of care (as documented) at patient's floor/unit and/or counseling patient: Coding Level of Care Code 61836 Subseq Hosp Care Lvl 2 Diagnoses UTI (urinary tract infection) N30.01 Hematuria presence: with hematuria Urinary tract infection type: acute cystitis CAD (coronary artery disease) I25.10 Associated angina: without angina Coronary Disease-Associated Artery/Lesion type: [place] artery [place] vs. transplanted heart: [place] heart Atrial fibrillation with RVR I48.91 HTN (hypertension) I10 Hypertension type: essential hypertension BPH (benign prostatic hyperplasia) N40.0 Lower urinary tract symptom presence: symptoms absent (1) UTI (urinary tract infection) Hematuria presence: with hematuria Urinary tract infection type: acute cystitis Qualified Code(s): N30.01 - Acute cystitis with hematuria (2) BPH (benign prostatic hyperplasia) Lower urinary tract symptom presence: symptoms absent Qualified Code(s): N40.0 - Benign prostatic hyperplasia without lower urinary tract symptoms (3) CAD (coronary artery disease) Associated angina: without angina Coronary Disease-Associated Artery/Lesion type: [place] artery [place] vs. transplanted heart: [place] heart Qualified Code(s): I25.10 - Atherosclerotic heart disease of [place] coronary artery without angina pectoris (4) HTN (hypertension) Hypertension type: essential hypertension Qualified Code(s): I10 - Essential (primary) hypertension
[2020-11-11] MEDS: ROSUVASTATIN CALCIUM 10 MG TAB PO SCH (08:27)
[2020-11-11] MEDS: CHOLECALCIFEROL 1,000 UNITS 25 MCG TAB PO SCH (08:27)
--- NOTE | 2020-11-11 08:44 | Pharmacy Report ---
Pharmacy Abx Dose Short Note - Date of Service November 11, 2020 - Assessment & Plan Assessment 80 year old started on vancomycin for possible UTI/sepsis. Received one time dose of cefepime in ER this AM. With hx of enterococcus UTI in the past. Also with hx of bladder cancer recently receiving BCG therapy. Per notes, patient developed chills, fatigue and nausea after BCG treatment yesterday. Also with temperature and fast heart rate. Blood cultures and urine culture are pending. Plan Vancomycin * Ordered loading dose of vancomycin 2000 mg x 1 (~22 mg/kg) * Will start maintenance dose of vancomycin 1250 mg iv q 18 hrs (~15 mg/kg/dose) * Patient with elevated Scr on admission. Appears baseline closer to ~1.1 - plan to use estimated pharmacokinetics to calculate dosing vs. vancomycin AUC dosing * Will plan to order trough if vancomycin continued >48 hrs * Estimated kinetics: t1/2~16 hrs, ke~0.04 hr-1, CrCl ~48 Pharmacy will continue to follow and will adjust dose/frequency as necessary. Thank you.
[2020-11-11] MEDS: VERAPAMIL HCL 40 MG TAB PO SCH (08:52)
--- NOTE | 2020-11-11 16:50 | Electrocardiogram Report ---
Test Reason : Blood Pressure : / mmHG Vent. Rate : 120 BPM Atrial Rate : 113 BPM P-R Int : 000 ms QRS Dur : 074 ms QT Int : 330 ms P-R-T Axes : 000 069 076 degrees QTc Int : 466 ms Atrial fibrillation with rapid ventricular response with premature ventricular or aberrantly conducte d complexes Abnormal ECG When compared with ECG of 23-NOV-2019 11:13, No significant change was found Confirmed by Cl Sanders ([id number]) on 11/11/2020 4:49:51 PM Referred By: REFERRED SELF Confirmed By:Cezar Sanders
[2020-11-11] MEDS ORDERED: VANCOMYCIN HCL 1,000 MG in SODIUM CHLORIDE 0.9% 250 ML IV SCH (18:00)
[2020-11-11] MEDS ORDERED: ESCITALOPRAM OXALATE 10 MG TAB PO SCH (21:00)
[2020-11-11] MEDS ORDERED: ASPIRIN 81 MG ECTAB PO SCH (21:00)
[2020-11-11] MEDS ORDERED: LATANOPROST 0.005% OP SOLN 2.5 ML BTL OPB SCH (21:00)
[2020-11-11] MEDS ORDERED: FINASTERIDE 5 MG TAB PO SCH (21:00)
[2020-11-11] MEDS ORDERED: WARFARIN SOD 5 MG TAB PO SCH (21:00)
[2020-11-11] MEDS ORDERED: TAMSULOSIN HCL 0.4 MG CAP PO SCH (21:00)
[2020-11-12] MEDS ORDERED: VANCOMYCIN HCL 1,250 MG in SODIUM CHLORIDE 0.9% 250 ML IV SCH (02:00)
[2020-11-12] MEDS: CHOLECALCIFEROL 1,000 UNITS 25 MCG TAB PO SCH (07:43)
[2020-11-12] MEDS: ROSUVASTATIN CALCIUM 10 MG TAB PO SCH (07:43)
[2020-11-12] MEDS: VERAPAMIL HCL 40 MG TAB PO SCH (07:43)
[2020-11-12 07:49] LABS: INR 1.6 (0.9-1.1); Prothrombin Time 15.6 Seconds (9.0-12.0)
[2020-11-12 07:55] LABS: Basophils # (auto) 0.01 K/uL (0-0.2); Basophils % (auto) 0.2 %; Eosinophils # (auto) 0.04 K/uL (0-0.5); Hematocrit (blood only) 36.8 % (42-52); Hemoglobin 12.2 g/dL (14.0-18.0); Immature Granulocytes # (auto) 0.01 K/uL (0.00-0.02); Immature Granulocytes % (auto) 0.2 %; Lymphocytes # (auto) 0.61 K/uL (1.2-3.4); Mean Corpuscular Hemoglobin 33.6 pg (25-34); Mean Corpuscular Hgb Conc 33.2 g/dL (32-36); Mean Corpuscular Volume 101.4 fL (80-100); Mean Platelet Volume 10.5 fL (7.4-10.4); Monocytes # (auto) 0.72 K/uL (0.11-0.59); Monocytes % (auto) 17.6 %; Neutrophils # (auto) 2.69 K/uL (1.4-6.5); Platelet Count 156 K/uL (130-400); RDW Coefficient of Variation 15.7 % (11.5-14.5); RDW Standard Deviation 57.4 fL (36.4-46.3); Red Blood Count 3.63 M/uL (4.7-6.1); White Blood Count 4.08 K/uL (4.8-10.8)
[2020-11-12 08:04] LABS: Albumin Level 2.9 gm/dl (3.4-5.0); BUN Creatinine Ratio 12.6 (10-20); Bilirubin Direct 0.2 mg/dl (0-0.2); Calcium 8.5 mg/dl (8.5-10.1); Creatinine Clr Calc Pharmacy 46.5 ml/min; Est GFR (African American) 55.7; Magnesium 2.1 mg/dl (1.8-2.4); Potassium 4.4 mmol/L (3.5-5.1)
[2020-11-12 08:06] LABS: Bilirubin,Total 1.4 mg/dl (0.2-1); Total Protein 6.3 gm/dl (6.4-8.2)
--- NOTE | 2020-11-12 18:03 | Discharge Summary ---
Date of Service November 12, 2020 Admission HPI Per Admitting Provider Teddy Odonnell is a pleasant 80yo male with history of bladder cancer presently receiving BCG therapy, AF on Coumadin, BPH,and AAA s/p endovascular stent graft placement. Patient was seen in Urology clinic yesterday and received a BCG treatment for his bladder cancer. He tolerated the treatment well with no complications. After returning home he reports developing acute shaking chills, fatigue, nausea and body aches around 18:30; temperature to 100.1 and a fast heart rate. He denies chest pain, back pain, abdominal pain. He had some mild hematuria which is not uncommon following his BCG treatment. He reports becoming dizzy with positional changes over the last week. Otherwise, patien twith no complaints. He feels better now. He had similar event occur appx 1 year ago for which he was hospitalized for antibiotics and fluids. ER Course: 2L NSS, Cefepime Principal Diagnosis Possible chemotherapy related drug effect Discharge Exam The patient appeared well Vital signs as documented. Lungs are clear to auscultation and appear unlabored Cardiac exam, Rhythm is regular.. No murmurs, rubs or gallops. Abdominal exam reveals normal bowel sounds, soft non tender, no masses Extremities are nonedematous and both pedal pulses are normal. Neurologic exam is alert and oriented, no focal loss of strength or sensation Skin is without bruises or rashes Psychologically is without concerns for anxiety or depression. Discharge Data Allergies Allergy/AdvReac Type Severity Reaction Status Date / Time No Known Allergies Allergy Unverified 11/10/20 12:53 Consultations 11/11/20 03:24 ED Decision to Admit Stat Hospital Course (1) UTI (urinary tract infection): Symptoms began following BCG treatment. Presentation is similar to prior episode. Presently afebrile, HD stable, non-toxic in appearance. No leukocytosis. Lactate WNL. Mildly elevated procalcitonin at 0.054 -Blood cultures and urine cultures negative to date -Patient with history of enterococcus faecalis UTI in 2019 - Sn to Ampicillin and Vancomycin. He received 2gm Cefepime in ER at 01:26. Started and remains on vancomycin as the only antibiotic however not discharged on any antibiotic Patient given the option of staying for 48 hours for finalizing his cultures however he wishes to go home he understands he may be called back if he has a bacteria in his cultures result that is resistant to oral antibiotics. (2) CAD (coronary artery disease): Chronic. Stable. No CP. No evidence of ischemia -Continue ASA and Crestor (3) Atrial fibrillation with RVR: Elevated HR on arrival, improving with IVF, presently 119. Patient anticoagulated on Coumadin with therapeutic INR of 2 -Continue Verapamil -Continue Coumadin Commend outpatient monitoring his INR early as next week (4) HTN (hypertension): Patient continues treatment for his atrial fibrillation is also has overflow treatment for his hypertension (5) BPH (benign prostatic hyperplasia): Chronic -Continue Tamsulosin and Finasteride Recommend follow-up with his urologist after discharge Total Time Total Time Spent Total Time Spent (In Minutes): It required greater than 30 minutes to prepare this patient for discharge Discharge Plan Discharge Items Patient Disposition: Home - Self-Care Reason For Visit: UTI Discharge Diagnosis: reaction to bcg treatment Activity: Resume your previous activity Non-emergency contact: Primary Care Provider and Urologist Call non-emergency contact if: you have any medication questions, your symptoms worsen and your temperature is above 101.5 Follow-up/Referrals: Jonathan Phillips [Primary Care Provider] - Diet: Regular Addtl Attending Provider Instructions: As of this time your blood and urine samples have not grown any bacteria to confirm infection. Although your reaction could simply be from the treatment you received we will continue to watch her blood and urine samples. If these do result to grow bacteria and you do require additional antibiotic therapy we will give you a phone call and arrange such. It is important that you keep watching your self or symptoms and fever and follow-up with your urologist and primary care physicians as needed Resume your usual warfarin dosing (Coumadin) and please have a blood check early next week to assure that your blood is appropriately thinned by these medicines It is important you have good food and good rest and good hydration Pending Studies at Discharge: Yes Stand-Alone Forms: My [employer], Smoking Cessation Medications and DC Order Prescriptions: Continued verapamil 120 mg tablet 120 mg PO QAM Qty: 90 RF: 3 rosuvastatin 10 mg tablet 10 mg PO QAM Qty: 90 RF: 3 warfarin 5 mg tablet 5 mg PO UD Qty: 90 RF: 3 multivitamin Tablet 1 tab PO QAM RF: 0 latanoprost 0.005 % Drops 1 drp OPB PM RF: 0 lecithin 1,200 mg Capsule 1,200 mg PO QPM RF: 0 aspirin 81 mg Tablet,Delayed Release (Dr/Ec) 81 mg PO QPM RF: 0 glucosamine-chondroitin 500-400 mg Capsule 1 cap PO QPM RF: 0 finasteride 5 mg Tablet 5 mg PO QPM RF: 0 chromium picolinate 400 mcg Tablet 400 mcg PO QAM RF: 0 escitalopram oxalate 5 mg Tablet 5 mg PO HS RF: 0 cholecalciferol (vitamin D3) [Vitamin D3] 1,000 unit Tablet 1,000 unit PO QAM RF: 0 tamsulosin 0.4 mg Capsule 0.4 mg PO QPM RF: 0 hydroxyzine HCl 25 mg Tablet 25 mg PO HS PRN (Reason: Sleep) RF: 0 triamcinolone acetonide 0.1 % Cream 1 applic TOPICAL UD PRN (Reason: Rash) RF: 0 vitamin B complex Tablet 1 tab PO QPM RF: 0 Discharge Orders: Discharge Order (Routine); Ordered 11/12/20 Ordered By: Fady Gutiérrez Admission Data Admit Date/Time: 11/11/20 03:58 Attending Provider: Fady Gutiérrez Admit Provider: Naila Staton Primary Care Provider: Jonathan Phillips Other Providers: Naila Staton Other Interventions: Discharge Summary Assessment (RN) Last Done: 11/12/20 14:04 Coding Level of Care Code D/C Day Management >30 mins Diagnoses UTI (urinary tract infection) N30.01 Hematuria presence: with hematuria Urinary tract infection type: acute cystitis CAD (coronary artery disease) I25.10 Coronary Disease-Associated Artery/Lesion type: [place] artery [place] vs. transplanted heart: [place] heart Associated angina: without angina Atrial fibrillation with RVR I48.91 HTN (hypertension) I10 Hypertension type: essential hypertension BPH (benign prostatic hyperplasia) N40.0 Lower urinary tract symptom presence: symptoms absent
[2020-11-13] MEDS ORDERED: VANCOMYCIN TROUGH ONE (13:30)
[2020-11-14] MEDS ORDERED: WARFARIN SOD 2 MG TAB PO SCH (21:00)
== END 2020-11-12 14:43 | disposition home or self-care (01) ==
LOC: ED 00:50 → 2W 00:50 → SUATTDRO 03:58 → 2W 06:15